=== PATIENT | male | born 1935 | race Caucasian/White ===

== ENCOUNTER 2017-12-15 18:46 | Emergency (ER) | payer MEDICARE, OTHER, SELFPAY ==
[2017-10-28 14:45] VITALS: BMI 28.0
[2017-12-15 18:55] VITALS: BP 131/75; PULSE 90; RESP 18; TEMP 36.4; O2SAT 97
[2017-12-15 19:05] VITALS: BP 131/75; PULSE 90; RESP 18; TEMP 36.4; O2SAT 97
--- NOTE | 2017-12-15 19:08 | ED.FALL ---
HPI - Fall General Chief Complaint: Fall Stated Complaint: GLF Time Seen by Provider: 12/15/17 18:46 Source: EMS, RN notes reviewed and old records reviewed Mode of arrival: EMS Limitations: altered mental status History of Present Illness HPI Narrative: Pleasantly confused, demented 82-year-old male this via EMS after an unwitnessed ground level fall. Patient was evaluated at his nursing facility and had complained of some hip pain as well as low back pain. On arrival here he denies any symptoms. There is no evidence or suggestion that he struck his head, patient denies any head injury though he does take Coumadin. complaint: fall Onset (ago): hour(s) Fall from: standing Fall witnessed: no Place fall occurred: home Loss of consciousness: none Context: tripped/slipped Location of injury: back Severity scale (1-10): 4 Related Data Home Medications Medication Instructions Recorded Confirmed terazosin 10 mg PO QPM #0 11/02/16 10/28/17 calcium carbonate [Calcium 500] 250 mg PO BID 10/28/17 10/28/17 cholecalciferol (vitamin D3) 5,000 unit PO DAILY 10/28/17 10/28/17 [Vitamin D3] glipizide 5 mg PO BID 10/28/17 10/28/17 losartan 50 mg PO DAILY 10/28/17 10/28/17 metformin 500 mg PO BID 10/28/17 10/28/17 multivitamin 1 tab PO DAILY 10/28/17 10/28/17 sertraline 50 mg PO DAILY 10/28/17 10/28/17 Previous Rx's Medication Instructions Recorded clopidogrel [Plavix] 75 mg PO DAILY #30 tab 10/31/17 dextrose 50 % in water (D50W) 0 gm IV PRN PRN #30 ml 10/31/17 docusate sodium 100 mg PO BID #60 cap 10/31/17 enoxaparin [Lovenox] 40 mg SUB-Q QHS #15 ml 10/31/17 ropinirole [Requip] 1.5 mg PO BEDTIME #45 tab 10/31/17 rosuvastatin [Crestor] 20 mg PO BEDTIME #30 tab 10/31/17 Allergies Allergy/AdvReac Type Severity Reaction Status Date / Time shrimp Allergy Intermediate Rash Verified 12/15/17 19:15 ezetimibe [From Vytorin] Allergy Mild SENSITIVITY Verified 12/15/17 19:15 simvastatin Allergy Mild SENSITIVITY Verified 12/15/17 19:15 lactose AdvReac Intermediate Gastrointestinal Verified 12/15/17 19:15 Upset Review of Systems Review of Systems All systems reviewed & are unremarkable except as noted in HPI and below Constitutional Denies chills, Denies fever(s), Denies lethargy and Denies weakness Eyes Denies change in vision, Denies eye discharge, Denies irritation and Denies loss of vision ENT Ears, Nose, Mouth, and Throat: Denies change in voice, Denies neck pain and Denies sore throat Cardiovascular Denies chest pain, Denies irregular heart rhythm, Denies lightheadedness, Denies palpitations, Denies dyspnea, Denies dyspnea on exertion and Denies orthopnea Respiratory Denies cough, Denies dyspnea, Denies dyspnea on exertion and Denies wheezing Gastrointestinal Gastrointestinal: Denies abdominal pain, Denies change in bowel habits, Denies diarrhea, Denies nausea and Denies vomiting Genitourinary Denies hematuria, Denies flank pain, Denies urinary incontinence and Denies urinary urgency Musculoskeletal Reports back pain and Denies neck pain Integumentary/Breasts Denies pruritus, Denies erythema, Denies rash and Denies wounds Neurologic Denies confusion, Denies loss of vision and Denies weakness Psychiatric Denies anxiety, Denies confusion, Denies depression, Denies homicidal ideation and Denies suicidal ideation Endocrine Denies palpitations Hematologic/Lymphatic Denies easy bruising Allergic/Immunologic Denies wheezing Exam Narrative Exam Narrative: Pleasantly confused 82-year-old male, GCS 15 Initial Vital Signs Initial Vital Signs: Vital Signs Temperature 97.6 F 12/15/17 18:55 Pulse Rate 90 12/15/17 18:55 Respiratory Rate 18 12/15/17 18:55 Blood Pressure 131/75 H 12/15/17 18:55 Pulse Oximetry 97 12/15/17 18:55 Const General: cooperative, well developed and No in distress Nutritional Appearance: well nourished Orientation: alert, awake and not confused [facility] Head: normal to inspection, normocephalic and abrasion (Old healing abrasion on left forehead) Nose: external nose normal Face and sinus: normal facial exam Mouth: oral mucosae normal Eyes General: appearance normal, both eyes and all related structures Eyelids: eyelids normal Conjunctivae: conjunctivae normal Sclera: sclerae normal Pupils: PERRL EOM: EOM intact bilaterally Neck Neck: normal visual inspection and full ROM Chest Chest: normal inspection of the chest Resp Effort & Inspection: normal respiratory effort, able to speak in complete sentences, no respiratory distress and no use of accessory muscles Auscultation: clear to auscultation bilaterally, no rales, no rhonchi and no wheezes Cardio Rate: regular rate Rhythm: regular rhythm Heart Sounds: no click, no gallops, no murmurs and no rubs Pulses: normal peripheral pulses Back/Spine/Pelvis Back: No CVA tenderness Cervical Spine: cervical ROM normal and No pain with cervical ROM Thoracic/Lumbar Spine: thoracic and lumbar spine normal to inspection Neuro General: alert, awake and confused Motor: muscle tone normal throughout Sensory Exam: no sensory deficits noted Extrem General: full ROM, no clubbing, cyanosis or edema, no pedal edema and no calf tenderness Psych Appearance: well kempt Attitude: cooperative [facility] Medical History Dementia (Acute) Cataract (Acute) Hearing difficulty of both ears (Acute) Restless leg syndrome (Acute) Rotator cuff dysfunction (Acute) BPH (benign prostatic hyperplasia) (Chronic) CAD (coronary artery disease) (Chronic) Depression (Chronic) Diabetes type 2, controlled (Chronic) HTN (hypertension) (Chronic) Hyperlipidemia (Chronic) Surgical History Hx of appendectomy (Acute) 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) Hx of appendectomy (Chronic) Hx of rotator cuff surgery (Chronic) Social History household members: spouse Smoking Status: Former smoker alcohol intake: current Course Orders Ordered: ED Orders 12/15/17 19:08 CT head/brain wo con Stat XR lumbar spine 2-3V Stat Hemoglobin and Hematocrit Stat Prothrombin Time INR Stat 12/15/17 19:38 XR hip w pel if done RT 2V Stat Vital Signs - 8 hr 12/15/17 20:42 12/15/17 21:03 Temperature 97.6 F Pulse Rate 91 H 91 H Respiratory Rate 20 20 Blood Pressure 134/75 H Blood Pressure [Left Arm] 134/75 H Pulse Oximetry 95 95 MDM - Fall Differential Diagnosis Likely compression fracture, concussion with loss of consciousness and concussion without loss of consciousness Medical Records Attestation: I reviewed the patient's medical records. Lab Data Result diagrams: 12/15/17 19:08 Lab Results 12/15/17 12/15/17 Range/Units 19:08 19:08 Hgb 12.5 L (13.5-17.5) g/dL Hct 36.8 L (41-53) % PT 11.2 (10.1-12.7) SECONDS INR 1.0 (0.9-1.3) Imaging Data Hip Xray: Attestation: I personally reviewed and interpreted this imaging study as follows: My impression: ISABELLE Radiologist's impression: PROCEDURE: XR HIP W PEL IF DONE RT 2V INDICATIONS: Right hip pain, severe per care home TECHNIQUE: 2 views of the hip were acquired. COMPARISON: None. FINDINGS: Bones: No fractures or dislocations. No suspicious bony lesions. The visualized pelvic ring appears intact. Soft tissues: No suspicious soft tissue calcifications or masses. IMPRESSION: No fracture. No acute osseous lesion. If there are persistent symptoms or clinical suspicion for pathology, then repeat radiographs or advanced imaging (CT, MRI or bone scan) should be considered for further evaluation. Dictated by: Theresa Eckert MD, PhD on 12/15/2017 at 20:41 Approved by: Theresa Eckert MD, PhD on 12/15/2017 at 20:42 Lumbar Xray: Attestation: I personally reviewed and interpreted this imaging study as follows: My impression: ISABELLE Radiologist's impression: PROCEDURE: XR LUMBAR SPINE 2-3V INDICATIONS: fall with midline back pain TECHNIQUE: 3 views of the lumbar spine were acquired. COMPARISON: None. FINDINGS: Bones: 5 [id number] vertebrae are present. There is within normal limits. No vertebral body compression fractures. No suspicious bony lesions. Spine degenerative disease and facet arthropathy noted. Soft tissues: Overlying bowel gas pattern is normal. No suspicious soft tissue calcifications. IMPRESSION: No fracture. No acute osseous lesion. If there are persistent symptoms or continued clinical suspicion for pathology, then MRI should be considered for further evaluation. Dictated by: Theresa Eckert MD, PhD on 12/15/2017 at 20:04 Approved by: Theresa Eckert MD, PhD on 12/15/2017 at 20:05 CT scan - head: Radiologist's impression: TECHNIQUE: Noncontrast 4.5 mm thick angled axial sections acquired from the foramen magnum to the vertex, with coronal and sagittal reformats. For radiation dose reduction, the following was used: automated exposure control, adjustment of mA and/or kV according to patient size. COMPARISON: [facility], MR, MR STROKE, 10/28/2017, 13:07. [facility], CT, CT HEAD/BRAIN WO CON, 10/28/2017, 8:24. [facility], CT, HEAD WITHOUT CONTRAST, 11/02/2016, 14:30. [facility], MR, BRAIN WITHOUT CONTRAST, 01/10/2014, 15:10. [facility], CT, HEAD WITHOUT CONTRAST, 08/13/2013, 9:59. [facility], CT, HEAD WITHOUT CONTRAST, 06/07/2009, 9:24. [facility], MR, BRAIN WITHOUT CONTRAST, 05/27/2009, 13:10. [facility], CT, HEAD WITHOUT CONTRAST, 05/26/2009, 16:01. FINDINGS: Image quality: Degraded by patient motion artifact. CSF spaces: Basal cisterns are patent. No extra-axial fluid collections. The ventricles are symmetric in size and shape. Brain: No intracranial bleeds or masses. There is cerebral volume loss for age, with resultant ventricular and sulcal prominence. There are periventricular and deep white matter chronic small vessel ischemic changes. There is intracranial internal carotid artery atherosclerosis. Skull and face: Calvarium and visualized facial bones appear intact, without suspicious lesions. Sinuses: Visualized sinuses and mastoids are clear. IMPRESSION: Image quality severely degraded by patient motion artifact. Intracranial pathology cannot be excluded. Dictated by: Theresa Eckert MD, PhD on 12/15/2017 at 20:05 Approved by: Theresa Eckert MD, PhD on 12/15/2017 at 20:08 Discharge Plan Departure Patient Disposition: Home, Self-Care Clinical Impression: Lumbar back pain Discharge Date/Time: 12/15/17 21:09 Interventions: ED Discharge Assessment Last Done: 12/15/17 21:03 Instructions: Low Back Pain Activity Restrictions/Additional Instructions: There is no evidence of an emergent or life threatening illness at this time, but follow up with your doctor in 1-2 days is recommended nonetheless to continue to rule out serious underlying causes of your symptoms. Please call the office for an appointment. Please return to the Emergency Department for any worsening or persistent symptoms. Please take medications as directed. Prescriptions: No Action terazosin 10 MG capsule 10 mg PO QPM Qty: 0 RF: 0 multivitamin Tablet 1 tab PO DAILY RF: 0 losartan 50 mg Tablet 50 mg PO DAILY RF: 0 metformin 500 mg Tablet 500 mg PO BID RF: 0 calcium carbonate [Calcium 500] 500 mg calcium (1,250 mg) Tablet 250 mg PO BID RF: 0 sertraline 50 mg Tablet 50 mg PO DAILY RF: 0 glipizide 5 mg Tablet 5 mg PO BID RF: 0 cholecalciferol (vitamin D3) [Vitamin D3] 5,000 unit Tablet 5,000 unit PO DAILY RF: 0 docusate sodium 100 mg Capsule 100 mg PO BID Qty: 60 RF: 0 enoxaparin [Lovenox] 40 mg/0.4 mL Syringe 40 mg Sub-Q QHS Qty: 15 RF: 0 dextrose 50 % in water (D50W) Syringe IV PRN PRN (Reason: Blood Sugar - Low) Qty: 30 RF: 0 rosuvastatin [Crestor] 10 mg Tablet 20 mg PO BEDTIME Qty: 30 RF: 0 ropinirole [Requip] 1 mg Tablet 1.5 mg PO BEDTIME Qty: 45 RF: 0 clopidogrel [Plavix] 75 mg Tablet 75 mg PO DAILY Qty: 30 RF: 0 Referrals: Kaden Dunn MD [Primary Care Provider] -
--- NOTE | 2017-12-15 19:24 | PC.NURSE ---
I spoke with nursing staff at [facility]. They report he fell 3 times this evening in a span of 15 minutes. The last time, staff found him on his back. He was complaining of right hip/back pain, has chronic back issues. She reports he was grimacing when she moved his right leg more than usual. States that he denies hitting his head, but he has dementia so there is no way of confirming this. Has abrasion to his forehead form previous fall. They will send over meds and allergies and all relevant information.
--- NOTE | 2017-12-15 19:38 | DI.RAD.S_ITS ---
PROCEDURE: XR HIP W PEL IF DONE RT 2V INDICATIONS: Right hip pain, [facility] TECHNIQUE: 2 views of the hip were acquired. COMPARISON: None. FINDINGS: Bones: No fractures or dislocations. No suspicious bony lesions. The visualized pelvic ring appears intact. Soft tissues: No suspicious soft tissue calcifications or masses. IMPRESSION: No fracture. No acute osseous lesion. If there are persistent symptoms or clinical suspicion for pathology, then repeat radiographs or advanced imaging (CT, MRI or bone scan) should be considered for further evaluation. Dictated by: Theresa Eckert MD, PhD on 12/15/2017 at 20:41 Approved by: Theresa Eckert MD, PhD on 12/15/2017 at 20:42
[2017-12-15 19:49] LABS: Hematocrit 36.8 % (41-53); Hemoglobin 12.5 g/dL (13.5-17.5)
[2017-12-15 19:56] LABS: Prothrombin Time 11.2 SECONDS (10.1-12.7)
[2017-12-15 20:42] VITALS: BP 134/75; PULSE 91; RESP 20; TEMP 36.4; O2SAT 95
--- NOTE | 2017-12-15 20:47 | ED_ITS ---
HPI - Fall General Chief Complaint: Fall Stated Complaint: GLF Time Seen by Provider: 12/15/17 18:46 Source: EMS, RN notes reviewed and old records reviewed Mode of arrival: EMS Limitations: altered mental status History of Present Illness HPI Narrative: Pleasantly confused, demented 82-year-old male this via EMS after an unwitnessed ground level fall. Patient was evaluated at his nursing facility and had complained of some hip pain as well as low back pain. On arrival here he denies any symptoms. There is no evidence or suggestion that he struck his head, patient denies any head injury though he does take Coumadin. complaint: fall Onset (ago): hour(s) Fall from: standing Fall witnessed: no Place fall occurred: home Loss of consciousness: none Context: tripped/slipped Location of injury: back Severity scale (1-10): 4 Related Data Home Medications Medication Instructions Recorded Confirmed terazosin 10 mg PO QPM #0 11/02/16 10/28/17 calcium carbonate [Calcium 500] 250 mg PO BID 10/28/17 10/28/17 cholecalciferol (vitamin D3) 5,000 unit PO DAILY 10/28/17 10/28/17 [Vitamin D3] glipizide 5 mg PO BID 10/28/17 10/28/17 losartan 50 mg PO DAILY 10/28/17 10/28/17 metformin 500 mg PO BID 10/28/17 10/28/17 multivitamin 1 tab PO DAILY 10/28/17 10/28/17 sertraline 50 mg PO DAILY 10/28/17 10/28/17 Previous Rx's Medication Instructions Recorded clopidogrel [Plavix] 75 mg PO DAILY #30 tab 10/31/17 dextrose 50 % in water (D50W) 0 gm IV PRN PRN #30 ml 10/31/17 docusate sodium 100 mg PO BID #60 cap 10/31/17 enoxaparin [Lovenox] 40 mg SUB-Q QHS #15 ml 10/31/17 ropinirole [Requip] 1.5 mg PO BEDTIME #45 tab 10/31/17 rosuvastatin [Crestor] 20 mg PO BEDTIME #30 tab 10/31/17 Allergies Allergy/AdvReac Type Severity Reaction Status Date / Time shrimp Allergy Intermediate Rash Verified 12/15/17 19:15 ezetimibe [From Vytorin] Allergy Mild SENSITIVITY Verified 12/15/17 19:15 simvastatin Allergy Mild SENSITIVITY Verified 12/15/17 19:15 lactose AdvReac Intermediate Gastrointestinal Verified 12/15/17 19:15 Upset Review of Systems Review of Systems All systems reviewed & are unremarkable except as noted in HPI and below Constitutional Denies chills, Denies fever(s), Denies lethargy and Denies weakness Eyes Denies change in vision, Denies eye discharge, Denies irritation and Denies loss of vision ENT Ears, Nose, Mouth, and Throat: Denies change in voice, Denies neck pain and Denies sore throat Cardiovascular Denies chest pain, Denies irregular heart rhythm, Denies lightheadedness, Denies palpitations, Denies dyspnea, Denies dyspnea on exertion and Denies orthopnea Respiratory Denies cough, Denies dyspnea, Denies dyspnea on exertion and Denies wheezing Gastrointestinal Gastrointestinal: Denies abdominal pain, Denies change in bowel habits, Denies diarrhea, Denies nausea and Denies vomiting Genitourinary Denies hematuria, Denies flank pain, Denies urinary incontinence and Denies urinary urgency Musculoskeletal Reports back pain and Denies neck pain Integumentary/Breasts Denies pruritus, Denies erythema, Denies rash and Denies wounds Neurologic Denies confusion, Denies loss of vision and Denies weakness Psychiatric Denies anxiety, Denies confusion, Denies depression, Denies homicidal ideation and Denies suicidal ideation Endocrine Denies palpitations Hematologic/Lymphatic Denies easy bruising Allergic/Immunologic Denies wheezing Exam Narrative Exam Narrative: Pleasantly confused 82-year-old male, GCS 15 Initial Vital Signs Initial Vital Signs: Vital Signs Temperature 97.6 F 12/15/17 18:55 Pulse Rate 90 12/15/17 18:55 Respiratory Rate 18 12/15/17 18:55 Blood Pressure 131/75 H 12/15/17 18:55 Pulse Oximetry 97 12/15/17 18:55 Const General: cooperative, well developed and No in distress Nutritional Appearance: well nourished Orientation: alert, awake and not confused [facility] Head: normal to inspection, normocephalic and abrasion (Old healing abrasion on left forehead) Nose: external nose normal Face and sinus: normal facial exam Mouth: oral mucosae normal Eyes General: appearance normal, both eyes and all related structures Eyelids: eyelids normal Conjunctivae: conjunctivae normal Sclera: sclerae normal Pupils: PERRL EOM: EOM intact bilaterally Neck Neck: normal visual inspection and full ROM Chest Chest: normal inspection of the chest Resp Effort & Inspection: normal respiratory effort, able to speak in complete sentences, no respiratory distress and no use of accessory muscles Auscultation: clear to auscultation bilaterally, no rales, no rhonchi and no wheezes Cardio Rate: regular rate Rhythm: regular rhythm Heart Sounds: no click, no gallops, no murmurs and no rubs Pulses: normal peripheral pulses Back/Spine/Pelvis Back: No CVA tenderness Cervical Spine: cervical ROM normal and No pain with cervical ROM Thoracic/Lumbar Spine: thoracic and lumbar spine normal to inspection Neuro General: alert, awake and confused Motor: muscle tone normal throughout Sensory Exam: no sensory deficits noted Extrem General: full ROM, no clubbing, cyanosis or edema, no pedal edema and no calf tenderness Psych Appearance: well kempt Attitude: cooperative [facility] Medical History Dementia (Acute) Cataract (Acute) Hearing difficulty of both ears (Acute) Restless leg syndrome (Acute) Rotator cuff dysfunction (Acute) BPH (benign prostatic hyperplasia) (Chronic) CAD (coronary artery disease) (Chronic) Depression (Chronic) Diabetes type 2, controlled (Chronic) HTN (hypertension) (Chronic) Hyperlipidemia (Chronic) Surgical History Hx of appendectomy (Acute) 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) Hx of appendectomy (Chronic) Hx of rotator cuff surgery (Chronic) Social History household members: spouse Smoking Status: Former smoker alcohol intake: current Course Orders Ordered: ED Orders 12/15/17 19:08 CT head/brain wo con Stat XR lumbar spine 2-3V Stat Hemoglobin and Hematocrit Stat Prothrombin Time INR Stat 12/15/17 19:38 XR hip w pel if done RT 2V Stat Vital Signs - 8 hr 12/15/17 20:42 12/15/17 21:03 Temperature 97.6 F Pulse Rate 91 H 91 H Respiratory Rate 20 20 Blood Pressure 134/75 H Blood Pressure [Left Arm] 134/75 H Pulse Oximetry 95 95 MDM - Fall Differential Diagnosis Likely compression fracture, concussion with loss of consciousness and concussion without loss of consciousness Medical Records Attestation: I reviewed the patient's medical records. Lab Data Result diagrams: 12/15/17 19:08 Lab Results 12/15/17 12/15/17 Range/Units 19:08 19:08 Hgb 12.5 L (13.5-17.5) g/dL Hct 36.8 L (41-53) % PT 11.2 (10.1-12.7) SECONDS INR 1.0 (0.9-1.3) Imaging Data Hip Xray: Attestation: I personally reviewed and interpreted this imaging study as follows: My impression: ISABELLE Radiologist's impression: PROCEDURE: XR HIP W PEL IF DONE RT 2V INDICATIONS: Right hip pain, severe per assisted TECHNIQUE: 2 views of the hip were acquired. COMPARISON: None. FINDINGS: Bones: No fractures or dislocations. No suspicious bony lesions. The visualized pelvic ring appears intact. Soft tissues: No suspicious soft tissue calcifications or masses. IMPRESSION: No fracture. No acute osseous lesion. If there are persistent symptoms or clinical suspicion for pathology, then repeat radiographs or advanced imaging ( CT, MRI or bone scan) should be considered for further evaluation. Dictated by: Theresa Eckert MD, PhD on 12/15/2017 at 20:41 Approved by: Theresa Eckert MD, PhD on 12/15/2017 at 20:42 Lumbar Xray: Attestation: I personally reviewed and interpreted this imaging study as follows: My impression: ISABELLE Radiologist's impression: PROCEDURE: XR LUMBAR SPINE 2-3V INDICATIONS: fall with midline back pain TECHNIQUE: 3 views of the lumbar spine were acquired. COMPARISON: None. FINDINGS: Bones: 5 [id number] vertebrae are present. There is within normal limits. No vertebral body compression fractures. No suspicious bony lesions. Spine degenerative disease and facet arthropathy noted. Soft tissues: Overlying bowel gas pattern is normal. No suspicious soft tissue calcifications. IMPRESSION: No fracture. No acute osseous lesion. If there are persistent symptoms or continued clinical suspicion for pathology, then MRI should be considered for further evaluation. Dictated by: Theresa Eckert MD, PhD on 12/15/2017 at 20:04 Approved by: Theresa Eckert MD, PhD on 12/15/2017 at 20:05 CT scan - head: Radiologist's impression: TECHNIQUE: Noncontrast 4.5 mm thick angled axial sections acquired from the foramen magnum to the vertex, with coronal and sagittal reformats. For radiation dose reduction, the following was used: automated exposure control, adjustment of mA and/or kV according to patient size. COMPARISON: [facility], MR, MR STROKE, 10/28/2017, 13:07. [facility] , CT, CT HEAD/BRAIN WO CON, 10/28/2017, 8:24. [facility], CT, HEAD WITHOUT CONTRAST , 11/02/2016, 14:30. [facility], MR, BRAIN WITHOUT CONTRAST, 01/10/2014, 15: 10. [facility], CT, HEAD WITHOUT CONTRAST, 08/13/2013, 9:59. [facility], CT, HEAD WITHOUT CONTRAST, 06/07/2009, 9:24. [facility], MR, BRAIN WITHOUT CONTRAST, 2008, 13:10. [facility], CT, HEAD WITHOUT CONTRAST, 05/26/2009, 16:01. FINDINGS: Image quality: Degraded by patient motion artifact. CSF spaces: Basal cisterns are patent. No extra-axial fluid collections. The ventricles are symmetric in size and shape. Brain: No intracranial bleeds or masses. There is cerebral volume loss for age , with resultant ventricular and sulcal prominence. There are periventricular and deep white matter chronic small vessel ischemic changes. There is intracranial internal carotid artery atherosclerosis. Skull and face: Calvarium and visualized facial bones appear intact, without suspicious lesions. Sinuses: Visualized sinuses and mastoids are clear. IMPRESSION: Image quality severely degraded by patient motion artifact. Intracranial pathology cannot be excluded. Dictated by: Theresa Eckert MD, PhD on 12/15/2017 at 20:05 Approved by: Theresa Eckert MD, PhD on 12/15/2017 at 20:08 Discharge Plan Departure Patient Disposition: Home, Self-Care Clinical Impression: Lumbar back pain Discharge Date/Time: 12/15/17 21:09 Interventions: ED Discharge Assessment Last Done: 12/15/17 21:03 Instructions: Low Back Pain Activity Restrictions/Additional Instructions: There is no evidence of an emergent or life threatening illness at this time, but follow up with your doctor in 1-2 days is recommended nonetheless to continue to rule out serious underlying causes of your symptoms. Please call the office for an appointment. Please return to the Emergency Department for any worsening or persistent symptoms. Please take medications as directed. Prescriptions: No Action terazosin 10 MG capsule 10 mg PO QPM Qty: 0 RF: 0 multivitamin Tablet 1 tab PO DAILY RF: 0 losartan 50 mg Tablet 50 mg PO DAILY RF: 0 metformin 500 mg Tablet 500 mg PO BID RF: 0 calcium carbonate [Calcium 500] 500 mg calcium (1,250 mg) Tablet 250 mg PO BID RF: 0 sertraline 50 mg Tablet 50 mg PO DAILY RF: 0 glipizide 5 mg Tablet 5 mg PO BID RF: 0 cholecalciferol (vitamin D3) [Vitamin D3] 5,000 unit Tablet 5,000 unit PO DAILY RF: 0 docusate sodium 100 mg Capsule 100 mg PO BID Qty: 60 RF: 0 enoxaparin [Lovenox] 40 mg/0.4 mL Syringe 40 mg Sub-Q QHS Qty: 15 RF: 0 dextrose 50 % in water (D50W) Syringe IV PRN PRN (Reason: Blood Sugar - Low) Qty: 30 RF: 0 rosuvastatin [Crestor] 10 mg Tablet 20 mg PO BEDTIME Qty: 30 RF: 0 ropinirole [Requip] 1 mg Tablet 1.5 mg PO BEDTIME Qty: 45 RF: 0 clopidogrel [Plavix] 75 mg Tablet 75 mg PO DAILY Qty: 30 RF: 0 Referrals: Kaden Dunn MD [Primary Care Provider] -
[2017-12-15 21:03] VITALS: BP 134/75; PULSE 91; RESP 20; O2SAT 95
== END 2017-12-15 21:09 | disposition home or self-care (01) ==
PROVIDERS: Emergency Provider Emergency Medicine; PCP Internal Medicine
DX: M54.5 Low back pain (principal); W18.30XA Fall on same level, unspecified, initial encounter; R41.0 Disorientation, unspecified
CPT/HCPCS: 70450; 72100; 73502; 85014; 85018; 85610; 99283; 99284; 99291

== ENCOUNTER → 2017-12-27 15:24 | Outpatient (CLI) | payer MEDICARE, OTHER, SELFPAY ==
[2017-10-28 14:45] VITALS: BMI 28.0
--- NOTE | 2017-12-27 | DI.RAD.S_ITS ---
PROCEDURE: XR CHEST 2V INDICATIONS: CHEST FRACTURE TECHNIQUE: 2 views of the chest were acquired. COMPARISON: [facility], , CHEST 1 VIEW, 02/21/2017, 11:02. [facility], , CHEST 1 VIEW, 11/02/2016, 13:24. [facility], , CHEST 1 VIEW, 05/16/2016, 19:17. FINDINGS: Surgical changes and devices: Sternotomy wires, presumed prior CABG. Lungs and pleura: No pleural effusions or pneumothorax. Lungs are clear. Mediastinum: Mediastinal contours are normal. Heart size is normal. Bones and chest wall: No suspicious bony abnormalities. Soft tissues appear unremarkable. IMPRESSION: Chronic mild elevation of the right diaphragm, prior CABG, no acute disease. Dictated by: Yahir Rosenbaum M.D. on 12/27/2017 at 16:10 Approved by: Yahir Rosenbaum M.D. on 12/27/2017 at 16:10
== END ==
PROVIDERS: PCP Internal Medicine; Visit Provider Internal Medicine
DX: R07.81 Pleurodynia (principal)
CPT/HCPCS: 71046

== ENCOUNTER → 2018-01-21 18:33 | Outpatient (REF) | payer MEDICARE, OTHER, SELFPAY ==
[2017-10-28 14:45] VITALS: BMI 28.0
[2018-01-21 18:39] LABS: Appearance Urine UA CLOUDY; Bilirubin Urine UA NEGATIVE (NEGATIVE); Color Urine UA YELLOW; Glucose Urine UA 2+ g/dL (Normal); Ketones Urine UA TRACE (NEGATIVE); Leukocyte Esterase Urine UA 2+ (NEGATIVE); Nitrite Urine UA Negative (Negative); Occult Blood Urine UA 1+ (Negative); Protein Urine UA 1+ (Negative); pH Urine UA 5.5 (4.5-8.0)
[2018-01-21 18:50] LABS: Bacteria Urine Many (>30); Culture Indicated Urine Specimen Cultured; RBC Urine 1-5/HPF (0-5/HPF); Squamous Epithelial Cell Urine 0-1 /HPF; WBC Urine >100/HPF (0-5/HPF)
== END ==
LOC: LAB 18:33
PROVIDERS: PCP Internal Medicine; Visit Provider Internal Medicine
DX: R30.0 Dysuria (principal)
CPT/HCPCS: 81001; 87077; 87086; 87186

== ENCOUNTER 2018-03-03 22:57 | Emergency (ER) | payer MEDICARE, OTHER, SELFPAY ==
[2017-10-28 14:45] VITALS: BMI 28.0
[2018-03-03 23:03] VITALS: BP 129/65; PULSE 90; RESP 13; TEMP 36.4; O2SAT 96
--- NOTE | 2018-03-03 23:46 | DI.RAD.S_ITS ---
PROCEDURE: XR PELVIS 1-2V INDICATIONS: right hip pain after fall TECHNIQUE: Single view of the pelvis and 2 views of the hips were acquired. COMPARISON: [facility], CT, CT ABDOMEN PELVIS W CON, 03/04/2018, 1:03. FINDINGS: Bones: No fractures or dislocations. No suspicious bony lesions. Soft tissues: Visualized bowel gas pattern is normal. No suspicious soft tissue calcifications. Contrast is visualized within the bladder in the distal right ureter. There is a large left pelvic phlebolith. IMPRESSION: No acute fracture or dislocation. Dictated by: Reny Chacon M.D. on 03/04/2018 at 7:22 Approved by: Reny Chacon M.D. on 03/04/2018 at 7:24
--- NOTE | 2018-03-03 23:46 | ED.FALL ---
HPI - Fall General Chief Complaint: Fall Stated Complaint: GLF, dementia Time Seen by Provider: 03/03/18 23:00 Source: family and EMS Mode of arrival: EMS Limitations: altered mental status History of Present Illness HPI Narrative: Reported from EMS that they received a call from [facility] for the patient sustaining a ground level fall. Unknown how the patient fell. He was unable to provide any history secondary to his dementia. His was at bedside states that his mental status is at baseline. Related Data Home Medications Medication Instructions Recorded Confirmed terazosin 10 mg PO QPM #0 11/02/16 10/28/17 calcium carbonate [Calcium 500] 250 mg PO BID 10/28/17 10/28/17 cholecalciferol (vitamin D3) 5,000 unit PO DAILY 10/28/17 10/28/17 [Vitamin D3] glipizide 5 mg PO BID 10/28/17 10/28/17 losartan 50 mg PO DAILY 10/28/17 10/28/17 metformin 500 mg PO BID 10/28/17 10/28/17 multivitamin 1 tab PO DAILY 10/28/17 10/28/17 sertraline 50 mg PO DAILY 10/28/17 10/28/17 Previous Rx's Medication Instructions Recorded clopidogrel [Plavix] 75 mg PO DAILY #30 tab 10/31/17 dextrose 50 % in water (D50W) 0 gm IV PRN PRN #30 ml 10/31/17 docusate sodium 100 mg PO BID #60 cap 10/31/17 enoxaparin [Lovenox] 40 mg SUB-Q QHS #15 ml 10/31/17 ropinirole [Requip] 1.5 mg PO BEDTIME #45 tab 10/31/17 rosuvastatin [Crestor] 20 mg PO BEDTIME #30 tab 10/31/17 Allergies Allergy/AdvReac Type Severity Reaction Status Date / Time shrimp Allergy Intermediate Rash Verified 12/15/17 19:15 ezetimibe [From Vytorin] Allergy Mild SENSITIVITY Verified 12/15/17 19:15 simvastatin Allergy Mild SENSITIVITY Verified 12/15/17 19:15 lactose AdvReac Intermediate Gastrointestinal Verified 12/15/17 19:15 Upset Review of Systems Review of Systems unobtainable due to mental condition Exam Initial Vital Signs Initial Vital Signs: Vital Signs Temperature 97.5 F L 03/03/18 23:03 Pulse Rate 90 03/03/18 23:03 Respiratory Rate 13 03/03/18 23:03 Blood Pressure 129/65 03/03/18 23:03 Pulse Oximetry 96 03/03/18 23:03 Const General: healthy appearing and comfortable Orientation: alert, awake, oriented to person, not oriented to time and confused HENMT Head: normal to inspection and normocephalic Resp Effort & Inspection: normal respiratory effort Auscultation: clear to auscultation bilaterally Cardio Rate: regular rate Rhythm: regular rhythm Heart Sounds: no murmurs Pulses: radial pulses present GI Inspection: non-distended Palpation: soft, No firm and tender (Right side no rebound or guarding) Back/Spine/Pelvis Back: CVA tenderness right Skin Lesions: no lesions Rashes: no rashes Neuro General: alert and awake Motor: muscle tone normal throughout Extrem General: normal to inspection and capillary refill normal Psych Appearance: grossly normal and well kempt [facility] Medical History Dementia (Acute) Cataract (Acute) Hearing difficulty of both ears (Acute) Restless leg syndrome (Acute) Rotator cuff dysfunction (Acute) BPH (benign prostatic hyperplasia) (Chronic) CAD (coronary artery disease) (Chronic) Depression (Chronic) Diabetes type 2, controlled (Chronic) HTN (hypertension) (Chronic) Hyperlipidemia (Chronic) Surgical History Hx of appendectomy (Acute) 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 Result diagrams: 03/04/18 00:30 03/04/18 00:30 Lab Results 03/04/18 03/04/18 Range/Units 00:30 00:30 WBC 9.9 (4.5-11.0) X10^3/uL RBC 4.50 (4.5-5.9) X10^6/uL Hgb 13.6 (13.5-17.5) g/dL Hct 39.7 L (41-53) % MCV 88.3 (80-100) fL MCH 30.3 (26-34) PG MCHC 34.3 (30-36) % RDW 13.6 (11.6-14.8) % Plt Count 259 (150-400) X10^3/uL Neut % (Auto) 69.2 (50-75) % Lymph % (Auto) 19.0 L (25-40) % [place] % (Auto) 7.4 (3-14) % Eos % (Auto) 3.8 (2-4) % Baso % (Auto) 0.6 (0-2) % Neut # (Auto) 6900 H (6103-4000) /uL Sodium 137 (137-145) mmol/L Potassium 4.5 (3.4-5.1) mmol/L Chloride 101 (98-107) mmol/L Carbon Dioxide 22 (22-32) mmol/L BUN 16 (9-20) mg/dL Creatinine 0.70 (0.66-1.25) mg/dL Estimated GFR > 60.0 (>60) mL/min BUN/Creatinine Ratio 22.9 H (6-22) Glucose 359 H (80-110) mg/dL Calcium 9.4 (8.4-10.2) mg/dL Imaging Data X-ray pelvis: Attestation: I personally reviewed and interpreted this imaging study as follows: My impression: No fracture, no dislocation CT scan - abdomen: Radiologist's impression: No hepatic, splenic or renal trauma Moderate irregular diffuse wall thickening of urinary bladder which can be seen with tumor cystitis. ECG Data Attestation: I personally reviewed and interpreted this ECG as follows: Prior ECG tracings: not available for review Interpretation: Sinus rhythm Ventricular rate is 75 First degree AV block QRS 123 milliseconds Normal QTC Nonspecific ST T wave changes MDM Narrative Medical decision making narrative: Patient appears to be baseline mental status per the was at bedside. No trauma seen on the exam. Patient not on anticoagulation. No fractures on x-ray. CT scan pelvis performed secondary to right-sided abdominal pain and concern for intra-abdominal injury. There was no acute findings on the CT scan. Patient's states that he has never been evaluated in the past for bladder issues. She states that he has been incontinent since his stroke. A urine culture was sent secondary to the amount of urine that we were able to obtain here in the ER. The was informed of this. Will call if the this culture grows out any bacteria. The is given return precautions. She expressed understanding and agreement with plan. Discharge Plan Departure Patient Disposition: Home Clinical Impression: Abdominal pain, Fall Instructions: How to Prevent Falls Activity Restrictions/Additional Instructions: Call his primary care doctor for a follow-up. Return to the emergency department for any new or worsening symptoms Prescriptions: No Action terazosin 10 MG capsule 10 mg PO QPM Qty: 0 RF: 0 multivitamin Tablet 1 tab PO DAILY RF: 0 losartan 50 mg Tablet 50 mg PO DAILY RF: 0 metformin 500 mg Tablet 500 mg PO BID RF: 0 calcium carbonate [Calcium 500] 500 mg calcium (1,250 mg) Tablet 250 mg PO BID RF: 0 sertraline 50 mg Tablet 50 mg PO DAILY RF: 0 glipizide 5 mg Tablet 5 mg PO BID RF: 0 cholecalciferol (vitamin D3) [Vitamin D3] 5,000 unit Tablet 5,000 unit PO DAILY RF: 0 docusate sodium 100 mg Capsule 100 mg PO BID Qty: 60 RF: 0 enoxaparin [Lovenox] 40 mg/0.4 mL Syringe 40 mg Sub-Q QHS Qty: 15 RF: 0 dextrose 50 % in water (D50W) Syringe IV PRN PRN (Reason: Blood Sugar - Low) Qty: 30 RF: 0 rosuvastatin [Crestor] 10 mg Tablet 20 mg PO BEDTIME Qty: 30 RF: 0 ropinirole [Requip] 1 mg Tablet 1.5 mg PO BEDTIME Qty: 45 RF: 0 clopidogrel [Plavix] 75 mg Tablet 75 mg PO DAILY Qty: 30 RF: 0
--- NOTE | 2018-03-03 23:47 | DI.CT.S_ITS ---
PROCEDURE: CT ABDOMEN PELVIS W CON INDICATIONS: right-sided abdominal pain after fall TECHNIQUE: After the administration of intravenous contrast, 5 mm thick sections acquired from the diaphragm to the symphysis. 5 mm coronal and sagittal reformats were acquired. For radiation dose reduction, the following was used: automated exposure control, adjustment of mA and/or kV according to patient size. COMPARISON: [facility], CT, ABDOMEN/PELVIS WITH CONTRAST, 11/02/2016, 14:35. FINDINGS: Image quality: Excellent. ABDOMEN: Lung bases: There is atelectasis at the right lung base. No pleural effusion or pneumothorax. Patient is status post median sternotomy. There are extensive atheromatous calcifications throughout the coronary arteries. Solid organs: Liver is normal in size and enhancement. Gallbladder is unremarkable. Biliary system is non dilated. Pancreas enhances normally. Spleen is normal in size and enhancement. No adrenal nodules. Kidneys demonstrate normal size and enhancement, without hydronephrosis. Subcentimeter low-density cystic lesions are present within the right renal cortex. Peritoneum and bowel: Bowel loops demonstrate normal wall thickness and caliber. The appendix is not visualized; however there is no discrete right lower quadrant fluid or fat stranding to suggest acute appendicitis. No free fluid or air. Nodes and vessels: No retroperitoneal or mesenteric adenopathy by size criteria. There is mild fat stranding at the mesenteric root. This finding was visualized on the study dated 11/02/16 but appears more conspicuous on the current study. The largest associated mesenteric lymph node measures 9 mm in diameter which is increased when compared with the prior study (series 3, image 63). Aorta and inferior vena cava are normal in size. There are scattered atheromatous calcifications throughout the aorta and iliac arteries bilaterally. Miscellaneous: No ventral hernias. PELVIS: Genitourinary: The bladder is partially fluid filled and is diffusely thickened with trace perivesicular fat stranding. This is a new finding when compared with the prior CT dated 11/02/16. Miscellaneous: No inguinal adenopathy. There is a small fat containing left inguinal hernia. Bones: No suspicious bony lesions. No vertebral body compression fractures. There incidentally noted displaced pars interarticularis defects of L5-S1. No spondylolisthesis. IMPRESSION: 1. No findings to suggest acute right-sided trauma. 2. Nonvisualization of the appendix. No ancillary findings to suggest acute appendicitis. 3. Diffuse thickening of the bladder wall which is new when compared with the prior CT from 2017. Acute cystitis cannot be excluded. Please correlate with urinalysis. Neoplasm could also be considered in the differential. These findings are concordant with the overnight interpretation. Dictated by: Reny Chacon M.D. on 03/04/2018 at 7:14 Approved by: Reny Chacon M.D. on 03/04/2018 at 7:22
[2018-03-04 00:37] LABS: Add Manual Diff / Slide Review NO; Basophils Percent Auto 0.6 % (0-2); Eosinophils Percent Auto 3.8 % (2-4); Hematocrit 39.7 % (41-53); Hemoglobin 13.6 g/dL (13.5-17.5); Mean Corpuscular HGB Conc 34.3 % (30-36); Mean Corpuscular Hemoglobin 30.3 PG (26-34); Mean Corpuscular Volume 88.3 fL (80-100); Monocytes Percent Auto 7.4 % (3-14); Neutrophils Absolute Auto 6900 /uL (3000-5900); Neutrophils Percent Auto 69.2 % (50-75); Platelet Count 259 X10^3/uL (150-400); Red Cell Distribution Width 13.6 % (11.6-14.8); White Blood Cell Count 9.9 X10^3/uL (4.5-11.0)
[2018-03-04 00:44] LABS: BUN Creatinine Ratio 22.9 (6-22); Blood Urea Nitrogen 16 mg/dL (9-20); Calcium 9.4 mg/dL (8.4-10.2); Carbon Dioxide 22 mmol/L (22-32); Chloride 101 mmol/L (98-107); Estimated Glomerular Filt Rate > 60.0 mL/min (>60); Glucose 359 mg/dL (80-110); Sodium 137 mmol/L (137-145)
[2018-03-04 00:46] LABS: HEMOLYSIS 71 (0-50)
[2018-03-04 00:48] LABS: Potassium 4.5 mmol/L (3.4-5.1)
[2018-03-04 04:11] VITALS: BP 140/66; PULSE 82; RESP 18; O2SAT 98
--- NOTE | 2018-03-04 04:14 | PC.NURSE ---
Late entry at 0310-Spouse chose to take pt via POV and states pt can take steps from bed to WC. [facility] with [facility] to [facility] bed when arrives to the facility.
== END 2018-03-04 03:15 | disposition home or self-care (01) ==
PROVIDERS: Emergency Provider Emergency Medicine; PCP Internal Medicine
DX: R10.9 Unspecified abdominal pain (principal); F03.90 Unspecified dementia, unspecified severity, without behavioral disturbance, psychotic disturbance, mood disturbance, and anxiety; W18.30XA Fall on same level, unspecified, initial encounter
CPT/HCPCS: 36591; 72170; 74177; 80048; 85025; 87077; 87086; 87186; 93005; 99283; 99285; Q9967

== ENCOUNTER → 2018-03-26 11:51 | Outpatient (REF) | payer MEDICARE, OTHER, SELFPAY ==
[2017-10-28 14:45] VITALS: BMI 28.0
[2018-03-26 12:13] LABS: Appearance Urine UA TURBID; Bilirubin Urine UA NEGATIVE (NEGATIVE); Color Urine UA YELLOW; Glucose Urine UA 2+ g/dL (Normal); Ketones Urine UA TRACE (NEGATIVE); Leukocyte Esterase Urine UA 2+ (NEGATIVE); Nitrite Urine UA POSITIVE (Negative); Occult Blood Urine UA 3+ (Negative); Protein Urine UA 2+ (Negative); Specific Gravity Urine UA 1.025 (1.000-1.035); Urobilinogen Urine UA 0.2 E.U./dL (0.2)
[2018-03-26 12:27] LABS: Bacteria Urine Many (>30); Culture Indicated Urine Specimen Cultured; RBC Urine >100/HPF (0-5/HPF); WBC Urine 5-10/HPF (0-5/HPF)
== END ==
LOC: LAB 11:51
PROVIDERS: PCP Internal Medicine; Visit Provider Internal Medicine
DX: N39.0 Urinary tract infection, site not specified (principal)
CPT/HCPCS: 81001; 87077; 87086; 87186

== ENCOUNTER 2018-04-21 03:49 | Emergency (ER) | payer MEDICARE, OTHER, SELFPAY ==
[2017-10-28 14:45] VITALS: BMI 28.0
--- NOTE | 2018-04-21 03:55 | DI.RAD.S_ITS ---
PROCEDURE: XR PELVIS 1-2V INDICATIONS: right hip pain TECHNIQUE: Single view(s) of the pelvis acquired. COMPARISON: None. FINDINGS: Bones: No fractures or dislocations. No suspicious bony lesions. Mild bilateral hip joint degeneration. Lower lumbar degenerative disc disease Soft tissues: Visualized bowel gas pattern is normal. Dense stool is noted within the rectal vault. No suspicious soft tissue calcifications. IMPRESSION: No fracture identified. Dictated by: Mayco López M.D. on 04/21/2018 at 7:51 Approved by: Mayco López M.D. on 04/21/2018 at 7:53
--- NOTE | 2018-04-21 03:55 | ED.GENADULT ---
HPI - General Adult General Chief complaint: Fall Stated complaint: GLF, Rt Hip Pain Time Seen by Provider: 04/21/18 03:55 Source: EMS Mode of arrival: EMS Limitations: other (dementia) History of Present Illness HPI narrative: 83-year-old male brought in by EMS after they were called to his our [facility] for report that the patient had an unwitnessed fall 2 days ago is complaining of right hip pain. No interventions were made by EMS prior to arrival. Patient does have a history of dementia. Unable to provide any HPI. Related Data Home Medications Medication Instructions Recorded Confirmed terazosin 10 mg PO QPM #0 11/02/16 10/28/17 calcium carbonate [Calcium 500] 250 mg PO BID 10/28/17 10/28/17 cholecalciferol (vitamin D3) 5,000 unit PO DAILY 10/28/17 10/28/17 [Vitamin D3] glipizide 5 mg PO BID 10/28/17 10/28/17 losartan 50 mg PO DAILY 10/28/17 10/28/17 metformin 500 mg PO BID 10/28/17 10/28/17 multivitamin 1 tab PO DAILY 10/28/17 10/28/17 sertraline 50 mg PO DAILY 10/28/17 10/28/17 Previous Rx's Medication Instructions Recorded clopidogrel [Plavix] 75 mg PO DAILY #30 tab 10/31/17 dextrose 50 % in water (D50W) 0 gm IV PRN PRN #30 ml 10/31/17 docusate sodium 100 mg PO BID #60 cap 10/31/17 enoxaparin [Lovenox] 40 mg SUB-Q QHS #15 ml 10/31/17 ropinirole [Requip] 1.5 mg PO BEDTIME #45 tab 10/31/17 rosuvastatin [Crestor] 20 mg PO BEDTIME #30 tab 10/31/17 Allergies Allergy/AdvReac Type Severity Reaction Status Date / Time shrimp Allergy Intermediate Rash Verified 12/15/17 19:15 ezetimibe [From Vytorin] Allergy Mild SENSITIVITY Verified 12/15/17 19:15 simvastatin Allergy Mild SENSITIVITY Verified 12/15/17 19:15 lactose AdvReac Intermediate Gastrointestinal Verified 12/15/17 19:15 Upset Review of Systems Review of Systems Reported to right hip pain from the nursing facility unobtainable due to mental status [facility] Medical History Dementia (Acute) Cataract (Acute) Hearing difficulty of both ears (Acute) Restless leg syndrome (Acute) Rotator cuff dysfunction (Acute) BPH (benign prostatic hyperplasia) (Chronic) CAD (coronary artery disease) (Chronic) Depression (Chronic) Diabetes type 2, controlled (Chronic) HTN (hypertension) (Chronic) Hyperlipidemia (Chronic) Surgical History Hx of appendectomy (Acute) 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) Hx of appendectomy (Chronic) Hx of rotator cuff surgery (Chronic) Social History household members: spouse Smoking Status: Former smoker alcohol intake: current Exam Initial Vital Signs Initial Vital Signs: Vital Signs Temperature 97.6 F 04/21/18 03:56 Pulse Rate 84 04/21/18 03:56 Respiratory Rate 16 04/21/18 03:56 Blood Pressure 130/68 04/21/18 03:56 Pulse Oximetry 96 04/21/18 03:56 Const General: comfortable and well developed Orientation: alert, awake, not oriented to person, not oriented to place, not oriented to time and confused HENMT Head: normal to inspection and normocephalic Resp Effort & Inspection: normal respiratory effort GI Inspection: non-distended Palpation: soft Skin Lesions: no lesions Rashes: no rashes Neuro General: alert and awake Extrem Other: No gross deformities noted on extremity exam. Pelvis was stable. Psych Appearance: grossly normal Course Orders Ordered: ED Orders 04/21/18 03:55 XR pelvis 1-2V Stat Vital Signs - 8 hr 04/21/18 03:56 Temperature 97.6 F Pulse Rate 84 Respiratory Rate 16 Blood Pressure 130/68 Pulse Oximetry 96 Medical Decision Making Imaging Data X-ray pelvis: Attestation: I personally reviewed and interpreted this imaging study as follows: My impression: No fractures, no dislocation, no acute abnormalities MDM Narrative Medical decision making narrative: Patient with a history of dementia. He does not know where he is currently in does not know why he is here. Will not answer questions when asked about pain. No fractures noted on the x-rays. No other trauma noted on my exam. Patient has been seen here in the emergency department multiple times in the past for hip and back pain and falls. Will hold on further workup for now. Discharge Plan Departure Patient Disposition: Home Clinical Impression: Hip pain Instructions: How to Prevent Falls Activity Restrictions/Additional Instructions: There were no fractures noted on the x-rays and no other signs of trauma. Please contact his primary care doctor for further evaluation Prescriptions: No Action terazosin 10 MG capsule 10 mg PO QPM Qty: 0 RF: 0 multivitamin Tablet 1 tab PO DAILY RF: 0 losartan 50 mg Tablet 50 mg PO DAILY RF: 0 metformin 500 mg Tablet 500 mg PO BID RF: 0 calcium carbonate [Calcium 500] 500 mg calcium (1,250 mg) Tablet 250 mg PO BID RF: 0 sertraline 50 mg Tablet 50 mg PO DAILY RF: 0 glipizide 5 mg Tablet 5 mg PO BID RF: 0 cholecalciferol (vitamin D3) [Vitamin D3] 5,000 unit Tablet 5,000 unit PO DAILY RF: 0 docusate sodium 100 mg Capsule 100 mg PO BID Qty: 60 RF: 0 enoxaparin [Lovenox] 40 mg/0.4 mL Syringe 40 mg Sub-Q QHS Qty: 15 RF: 0 dextrose 50 % in water (D50W) Syringe IV PRN PRN (Reason: Blood Sugar - Low) Qty: 30 RF: 0 rosuvastatin [Crestor] 10 mg Tablet 20 mg PO BEDTIME Qty: 30 RF: 0 ropinirole [Requip] 1 mg Tablet 1.5 mg PO BEDTIME Qty: 45 RF: 0 clopidogrel [Plavix] 75 mg Tablet 75 mg PO DAILY Qty: 30 RF: 0
[2018-04-21 03:56] VITALS: BP 130/68; PULSE 84; RESP 16; TEMP 36.4; O2SAT 96
== END 2018-04-21 04:43 | disposition home or self-care (01) ==
PROVIDERS: Emergency Provider Emergency Medicine; PCP Internal Medicine
DX: M25.551 Pain in right hip (principal); W19.XXXA Unspecified fall, initial encounter
CPT/HCPCS: 72170; 99282; 99283

== ENCOUNTER 2018-05-09 06:57 | Emergency (ER) | payer MEDICARE, OTHER, SELFPAY ==
[2017-10-28 14:45] VITALS: BMI 28.0
--- NOTE | 2018-05-09 07:03 | ED_ITS ---
HPI - General Adult General Chief complaint: GI Bleed Stated complaint: coffee ground BM Time Seen by Provider: 05/09/18 07:02 Source: patient and family Mode of arrival: ambulatory Limitations: no limitations History of Present Illness HPI narrative: 83-year-old male with a history of dementia that is alert to person and place brought over from the nursing facility. He is a DNR with limited medical intervention. It was reported that this morning he had ?coffee- ground? bowel movement. He is with his . It appears that this morning was the only time that this has happened. The patient has no complaints. No prior interventions. Not on anticoagulation. Related Data Home Medications Medication Instructions Recorded Confirmed terazosin 10 mg PO QPM #0 11/02/16 10/28/17 calcium carbonate [Calcium 500] 250 mg PO BID 10/28/17 10/28/17 cholecalciferol (vitamin D3) 5,000 unit PO DAILY 10/28/17 10/28/17 [Vitamin D3] glipizide 5 mg PO BID 10/28/17 10/28/17 losartan 50 mg PO DAILY 10/28/17 10/28/17 metformin 500 mg PO BID 10/28/17 10/28/17 multivitamin 1 tab PO DAILY 10/28/17 10/28/17 sertraline 50 mg PO DAILY 10/28/17 10/28/17 methenamine hippurate 1 g PO DAILY 05/09/18 05/09/18 risperidone 0.25 mg 05/09/18 terazosin 10 mg PO DAILY 05/09/18 05/09/18 Previous Rx's Medication Instructions Recorded clopidogrel [Plavix] 75 mg PO DAILY #30 tab 10/31/17 dextrose 50 % in water (D50W) 0 gm IV PRN PRN #30 ml 10/31/17 docusate sodium 100 mg PO BID #60 cap 10/31/17 enoxaparin [Lovenox] 40 mg SUB-Q QHS #15 ml 10/31/17 ropinirole [Requip] 1.5 mg PO BEDTIME #45 tab 10/31/17 rosuvastatin [Crestor] 20 mg PO BEDTIME #30 tab 10/31/17 Allergies Allergy/AdvReac Type Severity Reaction Status Date / Time shrimp Allergy Intermediate Rash Verified 12/15/17 19:15 ezetimibe [From Vytorin] Allergy Mild SENSITIVITY Verified 12/15/17 19:15 simvastatin Allergy Mild SENSITIVITY Verified 12/15/17 19:15 Ihmakff-Cqw-Uos Reductase Allergy Verified 05/09/18 08:08 Inhibitor lactose AdvReac Intermediate Gastrointestinal Verified 12/15/17 19:15 Upset Review of Systems Review of Systems Somewhat limited given patient's history of dementia but he does report the follow Constitutional Denies fatigue and Denies fever(s) Cardiovascular Denies chest pain and Denies dyspnea Respiratory Denies dyspnea Gastrointestinal Gastrointestinal: Denies abdominal pain Comments: ?Coffee-ground? bowel movement this morning reported by nursing staff Genitourinary Denies dysuria Musculoskeletal Denies arthralgias Neurologic Denies behavioral changes Psychiatric Denies behavioral changes Endocrine Denies fatigue Hematologic/Lymphatic Denies easy bleeding PFSH Medical History Dementia (Acute) Cataract (Acute) Abnormality of gait and mobility (Acute) Atherosclerosis (Acute) Colonic polyp (Acute) Nasal polyp (Acute) TIA (transient ischemic attack) (Acute) Urinary incontinence (Acute) Hearing difficulty of both ears (Acute) Restless leg syndrome (Acute) Rotator cuff dysfunction (Acute) BPH (benign prostatic hyperplasia) (Chronic) CAD (coronary artery disease) (Chronic) Depression (Chronic) Diabetes type 2, controlled (Chronic) HTN (hypertension) (Chronic) Hyperlipidemia (Chronic) Surgical History Hx of appendectomy (Acute) 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) Hx of appendectomy (Chronic) Hx of rotator cuff surgery (Chronic) Social History household members: spouse Smoking Status: Former smoker alcohol intake: current Exam Initial Vital Signs Initial Vital Signs: Vital Signs Temperature 97.3 F L 05/09/18 07:14 Pulse Rate 62 05/09/18 07:14 Respiratory Rate 15 05/09/18 07:14 Blood Pressure 126/70 05/09/18 07:14 Pulse Oximetry 97 05/09/18 07:14 Const General: cooperative, comfortable, well developed, well groomed and No acute distress Orientation: alert, awake, oriented to person, oriented to place (Knows that he is in the hospital but does not know City) and other (Does not know why he is here) [facility] Head: normal to inspection and normocephalic Eyes General: appearance normal, both eyes and all related structures Chest Chest: normal inspection of the chest Resp Effort & Inspection: normal respiratory effort Auscultation: clear to auscultation bilaterally Cardio Rate: regular rate Rhythm: regular rhythm Heart Sounds: murmur systolic III/ GI Inspection: normal to inspection and non-distended Palpation: soft, No firm and No tender Rectal Exam: normal sphincter tone, heme negative stool and No hemorrhoids Skin Lesions: no lesions Rashes: no rashes Neuro General: alert and awake Speech: speech normal Extrem General: normal to inspection and capillary refill normal Psych Appearance: grossly normal and well kempt Course Orders Ordered: ED Orders 05/09/18 07:35 Complete Blood Count AUTO DIFF Stat Comprehensive Metabolic Panel Stat Partial Thromboplastin Time Stat Prothrombin Time INR Stat Type and Screen Stat Vital Signs - 8 hr 05/09/18 07:14 Temperature 97.3 F L Pulse Rate 62 Respiratory Rate 15 Blood Pressure 126/70 Pulse Oximetry 97 Medical Decision Making Lab Data Lab results reviewed: Yes I reviewed the patient's lab results. Result diagrams: 05/09/18 07:35 05/09/18 07:35 Lab Results 05/09/18 05/09/18 05/09/18 Range/Units 07:35 07:35 07:35 WBC 5.9 (4.5-11.0) X10^3/uL RBC 4.20 L (4.5-5.9) X10^6/uL Hgb 12.7 L (13.5-17.5) g/dL Hct 37.7 L (41-53) % MCV 89.8 (80-100) fL MCH 30.2 (26-34) PG MCHC 33.7 (30-36) % RDW 13.5 (11.6-14.8) % Plt Count 251 (150-400) X10^3/uL Neut % (Auto) 57.8 (50-75) % Lymph % (Auto) 26.1 (25-40) % [place] % (Auto) 9.9 (3-14) % Eos % (Auto) 5.3 H (2-4) % Baso % (Auto) 0.9 (0-2) % Neut # (Auto) 3400 (8576-5207) /uL PT 11.4 (10.1-12.7) SECONDS INR 1.0 (0.9-1.3) APTT 26 L (26.4-36.2) SECONDS Sodium 139 (137-145) mmol/L Potassium 4.1 (3.4-5.1) mmol/L Chloride 99 (98-107) mmol/L Carbon Dioxide 27 (22-32) mmol/L BUN 14 (9-20) mg/dL Creatinine 0.70 (0.66-1.25) mg/dL Estimated GFR > 60.0 (>60) mL/min BUN/Creatinine Ratio 20.0 (6-22) Glucose 332 H (80-110) mg/dL Calcium 9.4 (8.4-10.2) mg/dL Total Bilirubin 0.9 (0.2-1.3) mg/dL AST 19 (17-59) IU/L ALT 41 (21-72) IU/L Alkaline Phosphatase 80 (38-126) U/L Total Protein 6.9 (6.3-8.2) g/dL Albumin 4.0 (3.5-5.0) g/dL Globulin 2.9 (1.7-4.1) g/dL Albumin/Globulin Ratio 1.4 (1.0-2.8) MDM Narrative Medical decision making narrative: Patient not tachycardic, not hypotensive. Hemoglobin hematocrit baseline. His rectal exam here in the emergency department was Hemoccult negative. He has no abdominal tenderness. Does not have an elevated BUN and creatinine. Patient is a DNR with limited medical intervention. His is at bedside. I did have a discussion with them regarding his symptoms. I do not feel that based on his labs, physical exam, vital signs that he needs admitted to the hospital today for emergent colonoscopy. After discussion with the patient's there is even some question as to whether not was seen in his bowel movement this morning was actually blood. It was certainly not bright red blood per the patient's . Informed the patient's that she needed to contact his primary care doctor to discuss his symptoms and further workup and treatment. She was given return precautions. She expressed understanding and agreement with plan. Discharge Plan Departure Patient Disposition: Home Clinical Impression: Discoloration of stool Instructions: Gastrointestinal Bleeding Activity Restrictions/Additional Instructions: The gastrointestinal bleeding information that you were provided today was for your information. I do recommend that you contact [facility] primary care doctor for a follow-up. Return to the emergency department for any new symptoms, abdominal pain, vomiting, having bright red bowel movements, or any other concerning symptoms. Prescriptions: No Action terazosin 10 MG capsule 10 mg PO QPM Qty: 0 RF: 0 multivitamin Tablet 1 tab PO DAILY RF: 0 losartan 50 mg Tablet 50 mg PO DAILY RF: 0 metformin 500 mg Tablet 500 mg PO BID RF: 0 calcium carbonate [Calcium 500] 500 mg calcium (1,250 mg) Tablet 250 mg PO BID RF: 0 sertraline 50 mg Tablet 50 mg PO DAILY RF: 0 glipizide 5 mg Tablet 5 mg PO BID RF: 0 cholecalciferol (vitamin D3) [Vitamin D3] 5,000 unit Tablet 5,000 unit PO DAILY RF: 0 docusate sodium 100 mg Capsule 100 mg PO BID Qty: 60 RF: 0 enoxaparin [Lovenox] 40 mg/0.4 mL Syringe 40 mg Sub-Q QHS Qty: 15 RF: 0 dextrose 50 % in water (D50W) Syringe IV PRN PRN (Reason: Blood Sugar - Low) Qty: 30 RF: 0 rosuvastatin [Crestor] 10 mg Tablet 20 mg PO BEDTIME Qty: 30 RF: 0 ropinirole [Requip] 1 mg Tablet 1.5 mg PO BEDTIME Qty: 45 RF: 0 clopidogrel [Plavix] 75 mg Tablet 75 mg PO DAILY Qty: 30 RF: 0 methenamine hippurate 1 g PO DAILY RF: 0 risperidone 0.25 mg RF: 0 terazosin 10 mg PO DAILY RF: 0
[2018-05-09 07:14] VITALS: BP 126/70; PULSE 62; RESP 15; TEMP 36.3; O2SAT 97
[2018-05-09 07:40] VITALS: BP 134/60; PULSE 60; RESP 16; O2SAT 95
--- NOTE | 2018-05-09 07:48 | TAR.TRANSNT ---
Received pt from [facility] accompanied by staff member via . Per staff, pt had a coffeee ground like BM this morning witnessed by staff. Pt has no c/o at this time.
[2018-05-09 07:53] LABS: Add Manual Diff / Slide Review NO; Basophils Percent Auto 0.9 % (0-2); Eosinophils Percent Auto 5.3 % (2-4); Hematocrit 37.7 % (41-53); Hemoglobin 12.7 g/dL (13.5-17.5); Lymphocytes Percent Auto 26.1 % (25-40); Mean Corpuscular HGB Conc 33.7 % (30-36); Mean Corpuscular Hemoglobin 30.2 PG (26-34); Mean Corpuscular Volume 89.8 fL (80-100); Monocytes Percent Auto 9.9 % (3-14); Neutrophils Absolute Auto 3400 /uL (3000-5900); Neutrophils Percent Auto 57.8 % (50-75); Platelet Count 251 X10^3/uL (150-400); Red Cell Distribution Width 13.5 % (11.6-14.8); White Blood Cell Count 5.9 X10^3/uL (4.5-11.0)
[2018-05-09 08:01] LABS: Prothrombin Time 11.4 SECONDS (10.1-12.7)
[2018-05-09 08:03] LABS: PTT Partial Thromboplastin Tim 26 SECONDS (26.4-36.2)
[2018-05-09 08:07] LABS: Alanine Aminotransferase 41 IU/L (21-72); Albumin Globulin Ratio 1.4 (1.0-2.8); Alkaline Phosphatase 80 U/L (38-126); Aspartate Aminotransferase 19 IU/L (17-59); Bilirubin Total 0.9 mg/dL (0.2-1.3); Blood Urea Nitrogen 14 mg/dL (9-20); Calcium 9.4 mg/dL (8.4-10.2); Carbon Dioxide 27 mmol/L (22-32); Chloride 99 mmol/L (98-107); Estimated Glomerular Filt Rate > 60.0 mL/min (>60); Globulin 2.9 g/dL (1.7-4.1); Glucose 332 mg/dL (80-110); HEMOLYSIS < 15 (0-50); Potassium 4.1 mmol/L (3.4-5.1); Sodium 139 mmol/L (137-145); Total Protein 6.9 g/dL (6.3-8.2)
[2018-05-09 09:09] VITALS: BP 134/67; PULSE 63; RESP 16; O2SAT 97
== END 2018-05-09 08:47 ==
PROVIDERS: Emergency Provider Emergency Medicine; PCP Internal Medicine
DX: R19.5 Other fecal abnormalities (principal)
CPT/HCPCS: 80053; 85025; 85610; 85730; 86850; 86900; 86901; 99282; 99283

== ENCOUNTER 2018-08-07 11:04 | Emergency (ER) | payer MEDICARE, OTHER, SELFPAY ==
[2017-10-28 14:45] VITALS: BMI 28.0
[2018-08-07 11:05] VITALS: BP 126/58; PULSE 63; RESP 18; TEMP 37; O2SAT 99
--- NOTE | 2018-08-07 11:26 | ED.NEUROSD ---
HPI - Neuro Symptoms/Deficit General Chief Complaint: Neuro Symptoms/Deficit Stated Complaint: high blood sugar,cannot stay awake Time Seen by Provider: 08/07/18 11:09 Source: family Mode of arrival: wheelchair Limitations: other (Dementia) History of Present Illness HPI Narrative: Patient is a 83 male with a history of dementia. Is currently at his baseline mental status per his photographer lithographic and also family. Is reported that this morning his photographer lithographic got him out of the shower. At approximately 0930 this sat him down to have breakfast. After eating breakfast there was approximately hour and a half period of time where they had difficulty arousing the patient. They stated that they took his blood pressure in the systolic was in the 90s. They also took his blood sugar and it was greater than 400. He was brought over here to the emergency department for evaluation. They stated that as he was being wheeled over from his care facility when they went outside he became responsive again and is now currently back to normal. On Anticoagulants: No Related Data Home Medications Medication Instructions Recorded Confirmed terazosin 10 mg PO QPM #0 11/02/16 10/28/17 calcium carbonate [Calcium 500] 250 mg PO BID 10/28/17 10/28/17 cholecalciferol (vitamin D3) 5,000 unit PO DAILY 10/28/17 10/28/17 [Vitamin D3] glipizide 5 mg PO BID 10/28/17 10/28/17 losartan 50 mg PO DAILY 10/28/17 10/28/17 metformin 500 mg PO BID 10/28/17 10/28/17 multivitamin 1 tab PO DAILY 10/28/17 10/28/17 sertraline 50 mg PO DAILY 10/28/17 10/28/17 methenamine hippurate 1 g PO DAILY 05/09/18 05/09/18 risperidone 0.25 mg 05/09/18 terazosin 10 mg PO DAILY 05/09/18 05/09/18 Previous Rx's Medication Instructions Recorded clopidogrel [Plavix] 75 mg PO DAILY #30 tab 10/31/17 dextrose 50 % in water (D50W) 0 gm IV PRN PRN #30 ml 10/31/17 docusate sodium 100 mg PO BID #60 cap 10/31/17 enoxaparin [Lovenox] 40 mg SUB-Q QHS #15 ml 10/31/17 ropinirole [Requip] 1.5 mg PO BEDTIME #45 tab 10/31/17 rosuvastatin [Crestor] 20 mg PO BEDTIME #30 tab 10/31/17 Allergies Allergy/AdvReac Type Severity Reaction Status Date / Time shrimp Allergy Intermediate Rash Verified 12/15/17 19:15 ezetimibe [From Vytorin] Allergy Mild SENSITIVITY Verified 12/15/17 19:15 simvastatin Allergy Mild SENSITIVITY Verified 12/15/17 19:15 Kxtelqy-Bbs-Bep Reductase Allergy Verified 05/09/18 08:08 Inhibitor lactose AdvReac Intermediate Gastrointestinal Verified 12/15/17 19:15 Upset Review of Systems Review of Systems Provided by photographer lithographic and family Cardiovascular Denies dyspnea Respiratory Denies dyspnea Gastrointestinal Gastrointestinal: Denies vomiting Integumentary/Breasts Denies rash Neurologic Reports behavioral changes Psychiatric Reports behavioral changes Hematologic/Lymphatic Comments: Not on blood thinners PFSH Medical History Dementia (Acute) Cataract (Acute) Abnormality of gait and mobility (Acute) Atherosclerosis (Acute) Colonic polyp (Acute) Hearing difficulty of both ears (Acute) Nasal polyp (Acute) Restless leg syndrome (Acute) Rotator cuff dysfunction (Acute) TIA (transient ischemic attack) (Acute) Urinary incontinence (Acute) BPH (benign prostatic hyperplasia) (Chronic) CAD (coronary artery disease) (Chronic) Depression (Chronic) Diabetes type 2, controlled (Chronic) HTN (hypertension) (Chronic) Hyperlipidemia (Chronic) Surgical History Hx of appendectomy (Acute) 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) Hx of appendectomy (Chronic) Hx of rotator cuff surgery (Chronic) Social History household members: spouse Smoking Status: Former smoker alcohol intake: current Social History household members: spouse Smoking Status: Former smoker alcohol intake: current Exam Initial Vital Signs Initial Vital Signs: Vital Signs Temperature 98.6 F 08/07/18 11:05 Pulse Rate 63 08/07/18 11:05 Respiratory Rate 18 08/07/18 11:05 Blood Pressure 126/58 L 08/07/18 11:05 Pulse Oximetry 99 08/07/18 11:05 Const General: cooperative, comfortable, well developed, well groomed and No acute distress Orientation: alert, awake and confused [facility] Head: normal to inspection and normocephalic Resp Effort & Inspection: normal respiratory effort Auscultation: clear to auscultation bilaterally Cardio Rate: regular rate Rhythm: regular rhythm Skin Lesions: no lesions Rashes: no rashes Neuro Other: Patient is confused. However is at baseline per family and caregivers Extrem Other: No gross abnormalities. Moves all 4 extremities spontaneously Course Vital Signs - 8 hr 08/07/18 11:05 Temperature 98.6 F Pulse Rate 63 Respiratory Rate 18 Blood Pressure 126/58 L Pulse Oximetry 99 MDM - Neuro Symptoms/Deficit MDM Narrative Medical decision making narrative: Patient is a DNR/DNI with comfort measures only. He has at baseline neurologic status. His blood sugar was slightly elevated here. Had a long discussion with the family regarding his symptoms. Unsure the exact etiology. Informed them that we could do things like head CT and blood work to evaluate for stroke/TIA. Do an EKG to evaluate for arrhythmia, do lab work to evaluate for DKA. I feel that all of these are unlikely given his current exam. The family decided not to do any testing here in the emergency so will hold on further workup for now. They were given return precautions. Discharge Plan Departure Patient Disposition: Home Clinical Impression: Confusion Instructions: How to Prevent Falls Activity Restrictions/Additional Instructions: After our discussion we decided not to do any laboratory work or CT scans. I do not think this is unreasonable. Continue with all of his medications as directed. Return to the emergency department for any new or worsening symptoms Prescriptions: No Action terazosin 10 MG capsule 10 mg PO QPM Qty: 0 RF: 0 multivitamin Tablet 1 tab PO DAILY RF: 0 losartan 50 mg Tablet 50 mg PO DAILY RF: 0 metformin 500 mg Tablet 500 mg PO BID RF: 0 calcium carbonate [Calcium 500] 500 mg calcium (1,250 mg) Tablet 250 mg PO BID RF: 0 sertraline 50 mg Tablet 50 mg PO DAILY RF: 0 glipizide 5 mg Tablet 5 mg PO BID RF: 0 cholecalciferol (vitamin D3) [Vitamin D3] 5,000 unit Tablet 5,000 unit PO DAILY RF: 0 docusate sodium 100 mg Capsule 100 mg PO BID Qty: 60 RF: 0 enoxaparin [Lovenox] 40 mg/0.4 mL Syringe 40 mg Sub-Q QHS Qty: 15 RF: 0 dextrose 50 % in water (D50W) Syringe IV PRN PRN (Reason: Blood Sugar - Low) Qty: 30 RF: 0 rosuvastatin [Crestor] 10 mg Tablet 20 mg PO BEDTIME Qty: 30 RF: 0 ropinirole [Requip] 1 mg Tablet 1.5 mg PO BEDTIME Qty: 45 RF: 0 clopidogrel [Plavix] 75 mg Tablet 75 mg PO DAILY Qty: 30 RF: 0 methenamine hippurate 1 g PO DAILY RF: 0 risperidone 0.25 mg RF: 0 terazosin 10 mg PO DAILY RF: 0 Referrals: Kaden Dunn MD [Primary Care Provider] -
== END 2018-08-07 12:00 | disposition home or self-care (01) ==
PROVIDERS: Emergency Provider Emergency Medicine; PCP Internal Medicine
DX: R41.0 Disorientation, unspecified (principal)
CPT/HCPCS: 99282

== ENCOUNTER → 2018-10-05 08:35 | Outpatient (REF) | payer MEDICARE, OTHER, SELFPAY ==
[2017-10-28 14:45] VITALS: BMI 28.0
[2018-10-05 10:18] LABS: Add Manual Diff / Slide Review NO; Basophils Absolute Auto 0 /uL (0-100); Basophils Percent Auto 0.6 % (0-2); Eosinophils Absolute Auto 300 /uL (0-450); Eosinophils Percent Auto 4.7 % (2-4); Hematocrit 38.7 % (41-53); Hemoglobin 13.1 g/dL (13.5-17.5); Lymphocytes Absolute Auto 1900 /uL (1100-4500); Lymphocytes Percent Auto 28.2 % (25-40); Mean Corpuscular HGB Conc 33.9 % (30-36); Mean Corpuscular Hemoglobin 30.8 PG (26-34); Mean Corpuscular Volume 90.9 fL (80-100); Monocytes Absolute Auto 400 /uL (0-900); Monocytes Percent Auto 6.5 % (3-14); Neutrophils Absolute Auto 4100 /uL (1500-7000); Platelet Count 251 X10^3/uL (150-400); Red Blood Cell Count 4.26 X10^6/uL (4.5-5.9); Red Cell Distribution Width 13.4 % (11.6-14.8); White Blood Cell Count 6.9 X10^3/uL (4.5-11.0)
[2018-10-05 10:31] LABS: Blood Urea Nitrogen 15 mg/dL (9-20); Calcium 9.2 mg/dL (8.4-10.2); Carbon Dioxide 24 mmol/L (22-32); Chloride 103 mmol/L (98-107); Estimated Glomerular Filt Rate > 60.0 mL/min (>60); Glucose 203 mg/dL (80-110); HEMOLYSIS < 15 (0-50); Sodium 138 mmol/L (137-145)
[2018-10-05 11:07] LABS: Hemoglobin A1C% w Est Avg Glu 11.1 % (4.0-6.0)
== END ==
LOC: LAB 08:35
PROVIDERS: PCP Internal Medicine; Visit Provider Internal Medicine
DX: Z79.899 Other long term (current) drug therapy (principal)
CPT/HCPCS: 36415; 80048; 83036; 85025

== ENCOUNTER → 2018-10-31 12:16 | Outpatient (CLI) | payer MEDICARE, OTHER, SELFPAY ==
[2017-10-28 14:45] VITALS: BMI 28.0
[2018-10-31 14:22] LABS: Prostate Specific Antigen 1.25 ng/mL (0.10-4.00)
== END ==
PROVIDERS: PCP Internal Medicine; Visit Provider Specialist
DX: N40.1 Benign prostatic hyperplasia with lower urinary tract symptoms (principal)
CPT/HCPCS: 36415; 84153

== ENCOUNTER → 2019-02-26 10:00 | Outpatient (CLI) | payer MEDICARE, OTHER, SELFPAY ==
[2017-10-28 14:45] VITALS: BMI 28.0
[2019-02-26 10:44] LABS: Add Manual Diff / Slide Review NO; Basophils Absolute Auto 0 /uL (0-100); Basophils Percent Auto 0.4 % (0-2); Eosinophils Absolute Auto 300 /uL (0-450); Eosinophils Percent Auto 4.1 % (2-4); Hematocrit 38.7 % (41-53); Hemoglobin 13.4 g/dL (13.5-17.5); Lymphocytes Absolute Auto 1500 /uL (1100-4500); Lymphocytes Percent Auto 20.4 % (25-40); Mean Corpuscular HGB Conc 34.7 % (30-36); Mean Corpuscular Hemoglobin 31.4 PG (26-34); Mean Corpuscular Volume 90.3 fL (80-100); Monocytes Absolute Auto 600 /uL (0-900); Monocytes Percent Auto 8.3 % (3-14); Neutrophils Absolute Auto 4900 /uL (1500-7000); Neutrophils Percent Auto 66.8 % (50-75); Platelet Count 238 X10^3/uL (150-400); Red Blood Cell Count 4.28 X10^6/uL (4.5-5.9); Red Cell Distribution Width 13.4 % (11.6-14.8); White Blood Cell Count 7.3 X10^3/uL (4.5-11.0)
[2019-02-26 11:31] LABS: Alanine Aminotransferase 23 IU/L (21-72); Albumin Globulin Ratio 1.4 (1.0-2.8); Alkaline Phosphatase 83 U/L (38-126); Aspartate Aminotransferase 20 IU/L (17-59); Bilirubin Total 1.4 mg/dL (0.2-1.3); Blood Urea Nitrogen 15 mg/dL (9-20); Calcium 9.5 mg/dL (8.4-10.2); Carbon Dioxide 28 mmol/L (22-32); Chloride 101 mmol/L (98-107); Estimated Glomerular Filt Rate > 60.0 mL/min (>60); Globulin 2.9 g/dL (1.7-4.1); Glucose 227 mg/dL (80-110); HEMOLYSIS < 15 (0-50); Sodium 138 mmol/L (137-145); Total Protein 6.9 g/dL (6.3-8.2)
== END ==
PROVIDERS: PCP Internal Medicine; Visit Provider Internal Medicine
DX: R45.1 Restlessness and agitation (principal)
CPT/HCPCS: 36415; 80053; 85025

== ENCOUNTER → 2019-04-09 16:02 | Outpatient (CLI) | payer MEDICARE, OTHER, SELFPAY ==
[2017-10-28 14:45] VITALS: BMI 28.0
[2019-04-09 17:07] LABS: Alanine Aminotransferase 22 IU/L (21-72); Albumin 4.2 g/dL (3.5-5.0); Albumin Globulin Ratio 1.6 (1.0-2.8); Alkaline Phosphatase 77 U/L (38-126); Aspartate Aminotransferase 30 IU/L (17-59); BUN Creatinine Ratio 24.4 (6-22); Bilirubin Total 0.7 mg/dL (0.2-1.3); Blood Urea Nitrogen 22 mg/dL (9-20); Calcium 9.9 mg/dL (8.4-10.2); Carbon Dioxide 25 mmol/L (22-32); Chloride 101 mmol/L (98-107); Estimated Glomerular Filt Rate > 60.0 mL/min (>60); Globulin 2.7 g/dL (1.7-4.1); Glucose 215 mg/dL (80-110); HEMOLYSIS < 15 (0-50); Potassium 4.4 mmol/L (3.4-5.1); Sodium 138 mmol/L (137-145); Total Protein 6.9 g/dL (6.3-8.2)
[2019-04-09 17:08] LABS: Hemoglobin A1C% w Est Avg Glu 9.6 % (4.0-6.0)
[2019-04-09 17:11] LABS: Add Manual Diff / Slide Review NO; Basophils Absolute Auto 0 /uL (0-100); Basophils Percent Auto 0.3 % (0-2); Eosinophils Absolute Auto 300 /uL (0-450); Eosinophils Percent Auto 2.8 % (2-4); Hematocrit 39.5 % (41-53); Hemoglobin 13.6 g/dL (13.5-17.5); Lymphocytes Absolute Auto 1800 /uL (1100-4500); Lymphocytes Percent Auto 18.9 % (25-40); Mean Corpuscular HGB Conc 34.4 % (30-36); Mean Corpuscular Hemoglobin 30.8 PG (26-34); Mean Corpuscular Volume 89.5 fL (80-100); Monocytes Absolute Auto 600 /uL (0-900); Monocytes Percent Auto 6.8 % (3-14); Neutrophils Absolute Auto 6700 /uL (1500-7000); Neutrophils Percent Auto 71.2 % (50-75); Platelet Count 281 X10^3/uL (150-400); Red Blood Cell Count 4.41 X10^6/uL (4.5-5.9); Red Cell Distribution Width 13.6 % (11.6-14.8); White Blood Cell Count 9.3 X10^3/uL (4.5-11.0)
== END ==
PROVIDERS: PCP Internal Medicine; Visit Provider Internal Medicine
DX: R79.89 Other specified abnormal findings of blood chemistry (principal); R68.89 Other general symptoms and signs
CPT/HCPCS: 36415; 80053; 83036; 85025

== ENCOUNTER → 2019-04-22 11:27 | Outpatient (ROUT) | payer MEDICARE, OTHER, SELFPAY ==
[2017-10-28 14:45] VITALS: BMI 28.0
[2019-04-22 11:29] LABS: Bacteria Urine None Seen; RBC Urine None Seen (0-5/HPF); WBC Urine None Seen (0-5/HPF)
[2019-04-22 11:52] LABS: Appearance Urine UA CLEAR; Bilirubin Urine UA NEGATIVE (NEGATIVE); Color Urine UA YELLOW; Glucose Urine UA NEGATIVE (Negative); Ketones Urine UA NEGATIVE (NEGATIVE); Leukocyte Esterase Urine UA NEGATIVE (NEGATIVE); Nitrite Urine UA NEGATIVE (Negative); Occult Blood Urine UA NEGATIVE (Negative); Protein Urine UA NEGATIVE (Negative); Urobilinogen Urine UA 0.2 E.U./dL (0.2); pH Urine UA 7.5 (4.5-8.0)
[2019-04-22 12:04] LABS: Culture Indicated Urine Cult Not Indicated; Urine Comments Microscopic Normal
== END ==
PROVIDERS: PCP Internal Medicine; Visit Provider Internal Medicine
DX: R45.1 Restlessness and agitation (principal)
CPT/HCPCS: 81001

== ENCOUNTER → 2019-07-12 07:33 | Outpatient (ROUT) | payer MEDICARE, OTHER, SELFPAY ==
[2017-10-28 14:45] VITALS: BMI 28.0
[2019-07-12 08:15] LABS: Add Manual Diff / Slide Review NO; Basophils Absolute Auto 100 /uL (0-100); Basophils Percent Auto 0.7 % (0-2); Eosinophils Absolute Auto 500 /uL (0-450); Eosinophils Percent Auto 7.3 % (2-4); Hematocrit 35.3 % (41-53); Hemoglobin 12.3 g/dL (13.5-17.5); Lymphocytes Absolute Auto 1800 /uL (1100-4500); Lymphocytes Percent Auto 25.6 % (25-40); Mean Corpuscular HGB Conc 34.8 % (30-36); Mean Corpuscular Hemoglobin 30.9 PG (26-34); Mean Corpuscular Volume 88.8 fL (80-100); Monocytes Absolute Auto 500 /uL (0-900); Monocytes Percent Auto 7.2 % (3-14); Neutrophils Absolute Auto 4200 /uL (1500-7000); Neutrophils Percent Auto 59.2 % (50-75); Platelet Count 257 X10^3/uL (150-400); Red Blood Cell Count 3.98 X10^6/uL (4.5-5.9); Red Cell Distribution Width 13.1 % (11.6-14.8); White Blood Cell Count 7.1 X10^3/uL (4.5-11.0)
[2019-07-12 08:35] LABS: Hemoglobin A1C% w Est Avg Glu 7.6 % (4.0-6.0)
[2019-07-12 08:37] LABS: BUN Creatinine Ratio 31.7 (6-22); Blood Urea Nitrogen 19 mg/dL (9-20); Calcium 9.2 mg/dL (8.4-10.2); Carbon Dioxide 25 mmol/L (22-32); Chloride 107 mmol/L (98-107); Estimated Glomerular Filt Rate > 60.0 mL/min (>60); Glucose 122 mg/dL (80-110); HEMOLYSIS < 15 (0-50); Potassium 3.8 mmol/L (3.4-5.1); Sodium 140 mmol/L (137-145)
[2019-07-12 09:24] LABS: Vitamin B12 404 pg/mL (239-931)
== END ==
PROVIDERS: PCP Internal Medicine; Visit Provider Nurse Practitioner Family
DX: F03.90 Unspecified dementia, unspecified severity, without behavioral disturbance, psychotic disturbance, mood disturbance, and anxiety (principal); R45.1 Restlessness and agitation; E11.9 Type 2 diabetes mellitus without complications
CPT/HCPCS: 36415; 80048; 82607; 83036; 85025

== ENCOUNTER → 2019-11-29 07:47 | Outpatient (ROUT) | payer MEDICARE, OTHER, SELFPAY ==
[2017-10-28 14:45] VITALS: BMI 28.0
[2019-11-29 08:08] LABS: Add Manual Diff / Slide Review NO; Basophils Absolute Auto 0 /uL (0-100); Basophils Percent Auto 0.6 % (0-2); Eosinophils Absolute Auto 300 /uL (0-450); Eosinophils Percent Auto 6.1 % (2-4); Hematocrit 37.1 % (41-53); Hemoglobin 12.5 g/dL (13.5-17.5); Lymphocytes Absolute Auto 1700 /uL (1100-4500); Mean Corpuscular HGB Conc 33.7 % (30-36); Mean Corpuscular Hemoglobin 30.7 PG (26-34); Mean Corpuscular Volume 90.9 fL (80-100); Monocytes Absolute Auto 400 /uL (0-900); Monocytes Percent Auto 8.4 % (3-14); Neutrophils Absolute Auto 2700 /uL (1500-7000); Neutrophils Percent Auto 51.9 % (50-75); Platelet Count 204 X10^3/uL (150-400); Red Blood Cell Count 4.08 X10^6/uL (4.5-5.9); White Blood Cell Count 5.3 X10^3/uL (4.5-11.0)
[2019-11-29 08:26] LABS: Hemoglobin A1C% w Est Avg Glu 6.9 % (4.0-6.0)
[2019-11-29 08:28] LABS: BUN Creatinine Ratio 26.4 (6-22); Blood Urea Nitrogen 14 mg/dL (9-20); Calcium 9.3 mg/dL (8.4-10.2); Carbon Dioxide 24 mmol/L (22-32); Chloride 106 mmol/L (98-107); Estimated Glomerular Filt Rate > 60.0 mL/min (>60); Glucose 99 mg/dL (80-110); HEMOLYSIS < 15 (0-50); Potassium 3.8 mmol/L (3.4-5.1); Sodium 138 mmol/L (137-145)
[2019-11-29 08:39] LABS: Vitamin D 25 Hydroxy (D3) 90.2 ng/mL (30.0-100.0)
[2019-11-29 08:54] LABS: Thyroid Stimulating Hormone 1.62 uIU/mL (0.47-4.68)
== END ==
PROVIDERS: PCP Internal Medicine; Visit Provider Nurse Practitioner Family
DX: R41.0 Disorientation, unspecified (principal); E11.9 Type 2 diabetes mellitus without complications; E56.9 Vitamin deficiency, unspecified
CPT/HCPCS: 36415; 80048; 82306; 83036; 84443; 85025

== ENCOUNTER → 2020-01-20 09:45 | Outpatient (ROUT) | payer MEDICARE, OTHER, SELFPAY ==
[2017-10-28 14:45] VITALS: BMI 28.0
[2020-01-20 10:11] LABS: Add Manual Diff / Slide Review NO; Basophils Absolute Auto 0 /uL (0-100); Basophils Percent Auto 0.2 % (0-2); Eosinophils Absolute Auto 200 /uL (0-450); Eosinophils Percent Auto 1.2 % (2-4); Hematocrit 36.7 % (41-53); Hemoglobin 12.2 g/dL (13.5-17.5); Lymphocytes Absolute Auto 1200 /uL (1100-4500); Lymphocytes Percent Auto 9.1 % (25-40); Mean Corpuscular HGB Conc 33.2 % (30-36); Mean Corpuscular Hemoglobin 30.7 PG (26-34); Mean Corpuscular Volume 92.6 fL (80-100); Monocytes Absolute Auto 1000 /uL (0-900); Monocytes Percent Auto 7.5 % (3-14); Neutrophils Absolute Auto 11200 /uL (1500-7000); Platelet Count 197 X10^3/uL (150-400); Red Blood Cell Count 3.96 X10^6/uL (4.5-5.9); Red Cell Distribution Width 13.5 % (11.6-14.8); White Blood Cell Count 13.7 X10^3/uL (4.5-11.0)
[2020-01-20 10:29] LABS: Alanine Aminotransferase 17 IU/L (<50); Albumin 3.8 g/dL (3.5-5.0); Albumin Globulin Ratio 1.4 (1.0-2.8); Alkaline Phosphatase 49 U/L (38-126); Aspartate Aminotransferase 23 IU/L (17-59); BUN Creatinine Ratio 33.9 (6-22); Bilirubin Total 1.3 mg/dL (0.2-1.3); Blood Urea Nitrogen 20 mg/dL (9-20); Calcium 9.7 mg/dL (8.4-10.2); Carbon Dioxide 25 mmol/L (22-32); Chloride 105 mmol/L (98-107); Estimated Glomerular Filt Rate > 60.0 mL/min (>60); Globulin 2.7 g/dL (1.7-4.1); Glucose 114 mg/dL (80-110); HEMOLYSIS < 15 (0-50); Potassium 3.9 mmol/L (3.4-5.1); Sodium 137 mmol/L (137-145); Total Protein 6.5 g/dL (6.3-8.2)
== END ==
PROVIDERS: PCP Internal Medicine; Visit Provider Internal Medicine
DX: R53.83 Other fatigue (principal)
CPT/HCPCS: 36415; 80053; 85025

== ENCOUNTER 2020-01-20 19:34 | Emergency (ER) | payer MEDICARE, OTHER, SELFPAY ==
[2017-10-28 14:45] VITALS: BMI 28.0
[2020-01-20 19:35] VITALS: BP 120/65; PULSE 63; RESP 16; TEMP 36.8; O2SAT 95
--- NOTE | 2020-01-20 19:44 | DI.CT.S_ITS ---
PROCEDURE: CT HEAD/BRAIN WO CON INDICATIONS: altered TECHNIQUE: Noncontrast 4.5 mm thick angled axial sections acquired from the foramen magnum to the vertex, with coronal and sagittal reformats. For radiation dose reduction, the following was used: automated exposure control, adjustment of mA and/or kV according to patient size. COMPARISON: [facility], CT, CT HEAD/BRAIN WO CON, 12/15/2017, 19:07. FINDINGS: Image quality: Excellent. CSF spaces: Basal cisterns are patent. No extra-axial fluid collections. The ventricles are symmetric in size and shape. Brain: No intracranial bleeds or masses. There is cerebral volume loss for age, with resultant ventricular and sulcal prominence. There are periventricular and deep white matter chronic small vessel ischemic changes. There is intracranial internal carotid artery atherosclerosis. Skull and face: Calvarium and visualized facial bones appear intact, without suspicious lesions. Sinuses: Visualized sinuses and mastoids are clear. IMPRESSION: No acute intracranial process. Dictated by: Mayco López M.D. on 01/20/2020 at 20:33 Approved by: Mayco López M.D. on 01/20/2020 at 20:35
[2020-01-20 20:05] LABS: Add Manual Diff / Slide Review NO; Basophils Absolute Auto 0 /uL (0-100); Basophils Percent Auto 0.1 % (0-2); Eosinophils Absolute Auto 100 /uL (0-450); Eosinophils Percent Auto 0.3 % (2-4); Hematocrit 36.6 % (41-53); Hemoglobin 12.2 g/dL (13.5-17.5); Lymphocytes Absolute Auto 1000 /uL (1100-4500); Lymphocytes Percent Auto 6.2 % (25-40); Mean Corpuscular HGB Conc 33.4 % (30-36); Mean Corpuscular Hemoglobin 30.7 PG (26-34); Mean Corpuscular Volume 92.1 fL (80-100); Monocytes Absolute Auto 900 /uL (0-900); Monocytes Percent Auto 6.1 % (3-14); Neutrophils Absolute Auto 13500 /uL (1500-7000); Neutrophils Percent Auto 87.3 % (50-75); Platelet Count 211 X10^3/uL (150-400); Red Blood Cell Count 3.97 X10^6/uL (4.5-5.9); Red Cell Distribution Width 13.7 % (11.6-14.8); White Blood Cell Count 15.4 X10^3/uL (4.5-11.0)
[2020-01-20 20:18] LABS: BUN Creatinine Ratio 30.3 (6-22); Blood Urea Nitrogen 23 mg/dL (9-20); Calcium 9.6 mg/dL (8.4-10.2); Carbon Dioxide 23 mmol/L (22-32); Chloride 102 mmol/L (98-107); Estimated Glomerular Filt Rate > 60.0 mL/min (>60); Glucose 171 mg/dL (80-110); HEMOLYSIS < 15 (0-50); Sodium 134 mmol/L (137-145)
--- NOTE | 2020-01-20 20:21 | ED.AMS ---
HPI - Altered Mental Status General Chief Complaint: Altered Mental Status Stated Complaint: Decreased LOC Time Seen by Provider: 01/20/20 19:40 Source: EMS and RN notes reviewed Mode of arrival: EMS Limitations: altered mental status History of Present Illness HPI narrative: 84M former smoker with history of dementia, prior stroke is a DNR with comfort measures and presents for evaluation of facial droop which nursing staff apparently noticed earlier today, and he's a bit less responsive than normal. He's had no injury nor fever, chills, chest pain or SOB. He apparently has no new medications or dietary change. There is no other complaint MD complaint: altered mental status Timing confirmed by: caregiver Severity: mild Consistency of symptoms: unknown Related Data Home Medications Medication Instructions Recorded Confirmed terazosin 10 mg PO QPM #0 11/02/16 10/28/17 calcium carbonate [Calcium 500] 250 mg PO BID 10/28/17 10/28/17 cholecalciferol (vitamin D3) 5,000 unit PO DAILY 10/28/17 10/28/17 [Vitamin D3] glipizide 5 mg PO BID 10/28/17 10/28/17 losartan 50 mg PO DAILY 10/28/17 10/28/17 metformin 500 mg PO BID 10/28/17 10/28/17 multivitamin 1 tab PO DAILY 10/28/17 10/28/17 sertraline 50 mg PO DAILY 10/28/17 10/28/17 methenamine hippurate 1 g PO DAILY 05/09/18 05/09/18 risperidone 0.25 mg 05/09/18 terazosin 10 mg PO DAILY 05/09/18 05/09/18 Previous Rx's Medication Instructions Recorded clopidogrel [Plavix] 75 mg PO DAILY #30 tab 10/31/17 dextrose 50 % in water (D50W) 0 gm IV PRN PRN #30 ml 10/31/17 docusate sodium 100 mg PO BID #60 cap 10/31/17 enoxaparin [Lovenox] 40 mg SUB-Q QHS #15 ml 10/31/17 ropinirole [Requip] 1.5 mg PO BEDTIME #45 tab 10/31/17 rosuvastatin [Crestor] 20 mg PO BEDTIME #30 tab 10/31/17 cephalexin [Keflex] 500 mg PO QID 7 Days #28 cap 01/20/20 Allergies Allergy/AdvReac Type Severity Reaction Status Date / Time shrimp Allergy Intermediate Rash Verified 12/15/17 19:15 ezetimibe [From Vytorin] Allergy Mild SENSITIVITY Verified 12/15/17 19:15 simvastatin Allergy Mild SENSITIVITY Verified 12/15/17 19:15 [id number] Reductase Allergy Verified 05/09/18 08:08 Inhibitor lactose AdvReac Intermediate Gastrointestinal Verified 12/15/17 19:15 Upset Review of Systems Review of Systems ROS Unobtainable: Unobtainable due to mental status/LOC Patient History Medical History Abnormality of gait and mobility (Acute) Atherosclerosis (Acute) BPH (benign prostatic hyperplasia) (Chronic) CAD (coronary artery disease) (Chronic) Cataract (Acute) Colonic polyp (Acute) Dementia (Acute) Depression (Chronic) Diabetes type 2, controlled (Chronic) Hearing difficulty of both ears (Acute) HTN (hypertension) (Chronic) Hyperlipidemia (Chronic) Nasal polyp (Acute) Restless leg syndrome (Acute) Rotator cuff dysfunction (Acute) TIA (transient ischemic attack) (Acute) Urinary incontinence (Acute) Surgical History History of total knee replacement (Chronic) Hx of appendectomy (Chronic) Hx of appendectomy (Acute) Hx of CABG (Chronic) Hx of rotator cuff surgery (Chronic) Social History household members: spouse Smoking Status: Former smoker alcohol intake: current Smoking Status: Former smoker alcohol intake frequency: holidays/special occasions only Substance Use Type: does not use Exam Narrative Exam Narrative: GENERAL: [84] year old patient appears stated age. Obviously chonically ill. Awake but not responsive. Guarding airway. HEAD: Atraumatic. Normocephalic. EYES: Pupils equal round and reactive. Extraocular motions intact. No scleral icterus. No injection or drainage. ENT: Nose without bleeding, purulent drainage. Throat without erythema, tonsillar hypertrophy or exudate. Airway patent. NECK: Trachea midline. Non tender CARDIOVASCULAR: Regular rate and rhythm without murmurs, gallops, or rubs. RESPIRATORY: Clear to auscultation. Breath sounds equal bilaterally. No wheezes, rales, or rhonchi. GASTROINTESTINAL: Abdomen soft, non-tender, nondistended. EXTREMITIES: No edema or joint tenderness. BACK: Nontender without deformity or crepitance. No flank tenderness. NEURO: No facial droop or obvious focal finding noted SKIN: No rash or erythema of visible areas Initial Vital Signs Initial Vital Signs: Vital Signs Temperature 98.3 F 01/20/20 19:35 Pulse Rate 63 01/20/20 19:35 Respiratory Rate 16 01/20/20 19:35 Blood Pressure 120/65 01/20/20 19:35 Pulse Oximetry 95 01/20/20 19:35 Course Course Course Narrative: call to PCP (Lokesh) to discuss ongoing care. She agrees that treating UTI and transfer back is appropriate and in line with his and family wishes Orders Ordered: ED Orders 01/20/20 19:57 Basic Metabolic Panel Stat Complete Blood Count AUTO DIFF Stat 01/20/20 20:33 XR chest 1V Stat 01/20/20 20:44 Urinalysis and Microscopic Stat Urine Culture Stat Urine Drug Screen, Rapid Stat Discontinued Medications Ceftriaxone Sodium/Dextrose (Rocephin) 1 gm in 50 mls @ 100 mls/hr IV NOW ONE Stop: 01/20/20 21:59 Last Infusion: 01/20/20 22:10 Dose: 0 mls/hr Documented by: Admin: 01/20/20 21:40 Dose: 100 mls/hr Documented by: YAMILETH Vital Signs Vital signs: Vital Signs - 8 hr 01/20/20 22:11 Pulse Rate 74 Respiratory Rate 16 Blood Pressure 106/73 Pulse Oximetry 97 MDM - Altered Mental Status Lab Data Result diagrams: 01/20/20 19:57 01/20/20 19:57 Labs: Lab Results 01/20/20 01/20/20 01/20/20 Range/Units 19:57 19:57 20:44 WBC 15.4 H (4.5-11.0) X10^3/uL RBC 3.97 L (4.5-5.9) X10^6/uL Hgb 12.2 L (13.5-17.5) g/dL Hct 36.6 L (41-53) % MCV 92.1 (80-100) fL MCH 30.7 (26-34) PG MCHC 33.4 (30-36) % RDW 13.7 (11.6-14.8) % Plt Count 211 (150-400) X10^3/uL Neut % (Auto) 87.3 H (50-75) % Lymph % (Auto) 6.2 L (25-40) % Riley % (Auto) 6.1 (3-14) % Eos % (Auto) 0.3 L (2-4) % Baso % (Auto) 0.1 (0-2) % Neut # (Auto) 77805 H (6171-1925) /uL Lymph # (Auto) 1000 L (3405-6937) /uL Riley # (Auto) 900 (0-900) /uL Eos # (Auto) 100 (0-450) /uL Baso # (Auto) 0 (0-100) /uL Sodium 134 L (137-145) mmol/L Potassium 4.0 (3.4-5.1) mmol/L Chloride 102 (98-107) mmol/L Carbon Dioxide 23 (22-32) mmol/L BUN 23 H (9-20) mg/dL Creatinine 0.76 (0.66-1.25) mg/dL Estimated GFR > 60.0 (>60) mL/min BUN/Creatinine Ratio 30.3 H (6-22) Glucose 171 H (80-110) mg/dL Calcium 9.6 (8.4-10.2) mg/dL Urine Color Yellow Urine Appearance Cloudy Urine pH 5.5 (4.5-8.0) Ur Specific [place] 1.025 (1.000-1.035) Urine Protein 3+ H (Negative) Urine Glucose (UA) Negative (Negative) g/dL Urine Ketones Trace H (NEGATIVE) Urine Occult Blood 3+ H (Negative) Urine Nitrate Positive (Negative) Urine Bilirubin Negative (NEGATIVE) Urine Urobilinogen 1.0 (0.2) E.U./dL Ur Leukocyte Esterase 2+ H (NEGATIVE) Urine RBC 30-100/hpf H (0-5/HPF) Urine WBC >100/hpf H (0-5/HPF) Ur Squamous Epith Cells 1-5 /hpf (0-5/HPF) Ur Transition Epith Cell 1-5/hpf (0-5/HPF) Ur Renal Epithelial Cell 1-5/hpf H (0-1/HPF) Calcium Oxalate Crystal Moderate H Urine Bacteria Few (2-10) H (None) Ur Culture Indicated? Specimen cultured U Opiates 300ng/mL cut (Negative) Ur Oxycodone Screen (Negative) Urine Methadone Screen (Negative) Ur Barbiturates Screen (Negative) U Tricyclic Antidepress (Negative) Ur Phencyclidine Scrn (Negative) Ur Amphetamines Screen (Negative) U Methamphetamines Scrn (Negative) Ur MDMA Scrn (Ecstasy) (Negative) U Benzodiazepines Scrn (Negative) Urine Cocaine Screen (Negative) U Marijuana (THC) Screen (Negative) 01/20/20 Range/Units 20:44 WBC (4.5-11.0) X10^3/uL RBC (4.5-5.9) X10^6/uL Hgb (13.5-17.5) g/dL Hct (41-53) % MCV (80-100) fL MCH (26-34) PG MCHC (30-36) % RDW (11.6-14.8) % Plt Count (150-400) X10^3/uL Neut % (Auto) (50-75) % Lymph % (Auto) (25-40) % Riley % (Auto) (3-14) % Eos % (Auto) (2-4) % Baso % (Auto) (0-2) % Neut # (Auto) (6100-4733) /uL Lymph # (Auto) (5856-8151) /uL Riley # (Auto) (0-900) /uL Eos # (Auto) (0-450) /uL Baso # (Auto) (0-100) /uL Sodium (137-145) mmol/L Potassium (3.4-5.1) mmol/L Chloride (98-107) mmol/L Carbon Dioxide (22-32) mmol/L BUN (9-20) mg/dL Creatinine (0.66-1.25) mg/dL Estimated GFR (>60) mL/min BUN/Creatinine Ratio (6-22) Glucose (80-110) mg/dL Calcium (8.4-10.2) mg/dL Urine Color Urine Appearance Urine pH (4.5-8.0) Ur Specific [place] (1.000-1.035) Urine Protein (Negative) Urine Glucose (UA) (Negative) g/dL Urine Ketones (NEGATIVE) Urine Occult Blood (Negative) Urine Nitrate (Negative) Urine Bilirubin (NEGATIVE) Urine Urobilinogen (0.2) E.U./dL Ur Leukocyte Esterase (NEGATIVE) Urine RBC (0-5/HPF) Urine WBC (0-5/HPF) Ur Squamous Epith Cells (0-5/HPF) Ur Transition Epith Cell (0-5/HPF) Ur Renal Epithelial Cell (0-1/HPF) Calcium Oxalate Crystal Urine Bacteria (None) Ur Culture Indicated? U Opiates 300ng/mL cut Negative (Negative) Ur Oxycodone Screen Negative (Negative) Urine Methadone Screen Negative (Negative) Ur Barbiturates Screen Negative (Negative) U Tricyclic Antidepress Negative (Negative) Ur Phencyclidine Scrn Negative (Negative) Ur Amphetamines Screen Negative (Negative) U Methamphetamines Scrn Negative (Negative) Ur MDMA Scrn (Ecstasy) Negative (Negative) U Benzodiazepines Scrn Negative (Negative) Urine Cocaine Screen Negative (Negative) U Marijuana (THC) Screen Negative (Negative) Imaging Data CT scan - head: Radiologist's Impression: [address] [address] [address] Scan Report Signed Patient: Sherman Gauthier JMR#: [id number] : 7Acct:[id number] Age/Sex: 84 / MDate of Service: 01/20/20 Loc: ED Accession Number: [id number] Procedure: CT head/brain wo con Ordering Provider: Navi Clay D.O. PROCEDURE: CT HEAD/BRAIN WO CON INDICATIONS: altered TECHNIQUE: Noncontrast 4.5 mm thick angled axial sections acquired from the foramen magnum to the vertex, with coronal and sagittal reformats. For radiation dose reduction, the following was used: automated exposure control, adjustment of mA and/or kV according to patient size. COMPARISON: [facility], CT, CT HEAD/BRAIN WO CON, 12/15/2017, 19:07. FINDINGS: Image quality: Excellent. CSF spaces: Basal cisterns are patent. No extra-axial fluid collections. The ventricles are symmetric in size and shape. Brain: No intracranial bleeds or masses. There is cerebral volume loss for age, with resultant ventricular and sulcal prominence. There are periventricular and deep white matter chronic small vessel ischemic changes. There is intracranial internal carotid artery atherosclerosis. Skull and face: Calvarium and visualized facial bones appear intact, without suspicious lesions. Sinuses: Visualized sinuses and mastoids are clear. IMPRESSION: No acute intracranial process. Dictated by: Mayco López M.D. on 01/20/2020 at 20:33 Approved by: Mayco López M.D. on 01/20/2020 at 20:35 Discharge Plan Departure Patient Disposition: Home Clinical Impression: Acute UTI Discharge Date/Time: 01/20/20 22:11 Instructions: DI for Urinary Tract Infection (UTI) Activity Restrictions/Additional Instructions: *You have been diagnosed with [acute urinary tract infection with a mild metabolic encephalopathy] *What to do: *Take medications as directed *Follow up with your primary care provider in 2-3 days, call for an appointment. Let them know you were seen in the Emergency Department and that we ask that you be seen in follow up *Return to ER if you should have any new, worsening or concerning symptoms Prescriptions: New cephalexin [Keflex] 500 mg capsule 500 mg PO QID 7 Days Qty: 28 RF: 0 No Action terazosin 10 MG capsule 10 mg PO QPM Qty: 0 RF: 0 multivitamin Tablet 1 tab PO DAILY RF: 0 losartan 50 mg Tablet 50 mg PO DAILY RF: 0 metformin 500 mg Tablet 500 mg PO BID RF: 0 calcium carbonate [Calcium 500] 500 mg calcium (1,250 mg) Tablet 250 mg PO BID RF: 0 sertraline 50 mg Tablet 50 mg PO DAILY RF: 0 glipizide 5 mg Tablet 5 mg PO BID RF: 0 cholecalciferol (vitamin D3) [Vitamin D3] 5,000 unit Tablet 5,000 unit PO DAILY RF: 0 docusate sodium 100 mg Capsule 100 mg PO BID Qty: 60 RF: 0 enoxaparin [Lovenox] 40 mg/0.4 mL Syringe 40 mg Sub-Q QHS Qty: 15 RF: 0 dextrose 50 % in water (D50W) Syringe 0 gm IV PRN PRN (Reason: Blood Sugar - Low) Qty: 30 RF: 0 rosuvastatin [Crestor] 10 mg Tablet 20 mg PO BEDTIME Qty: 30 RF: 0 ropinirole [Requip] 1 mg Tablet 1.5 mg PO BEDTIME Qty: 45 RF: 0 clopidogrel [Plavix] 75 mg Tablet 75 mg PO DAILY Qty: 30 RF: 0 methenamine hippurate 1 g PO DAILY RF: 0 risperidone 0.25 mg RF: 0 terazosin 10 mg PO DAILY RF: 0 Referrals: Naina Campa MD [Primary Care Provider] -
[2020-01-20 20:29] VITALS: BP 117/58; PULSE 78; RESP 24; O2SAT 92
--- NOTE | 2020-01-20 20:33 | DI.RAD.S_ITS ---
PROCEDURE: XR CHEST 1V INDICATIONS: stroke evaluation TECHNIQUE: One view of the chest was acquired. COMPARISON: [facility], CR, XR CHEST 2V, 12/27/2017, 15:13. FINDINGS: Surgical changes and devices: Sternotomy wires and CABG clips.. Lungs and pleura: Lungs are clear. No pleural effusions or pneumothorax. Mediastinum: Mediastinal contours appear normal. Heart size is normal. Bones and chest wall: No suspicious bony lesions. Overlying soft tissues appear unremarkable. IMPRESSION: No acute disease Dictated by: Mayco López M.D. on 01/20/2020 at 21:13 Approved by: Mayco López M.D. on 01/20/2020 at 21:13
[2020-01-20 21:03] LABS: Appearance Urine UA CLOUDY; Bilirubin Urine UA NEGATIVE (NEGATIVE); Color Urine UA YELLOW; Glucose Urine UA NEGATIVE (Negative); Ketones Urine UA TRACE (NEGATIVE); Leukocyte Esterase Urine UA 2+ (NEGATIVE); Nitrite Urine UA POSITIVE (Negative); Occult Blood Urine UA 3+ (Negative); Protein Urine UA 3+ (Negative); Specific Gravity Urine UA 1.025 (1.000-1.035); pH Urine UA 5.5 (4.5-8.0)
[2020-01-20 21:10] LABS: UR Morphine/Opiate cutoff 300 Negative (Negative); Ur Creatinine Normal (Normal); Ur Specific Gravity Normal (Normal); Urine Amphetamines Negative (Negative); Urine Barbiturates Negative (Negative); Urine Benzodiazepines Negative (Negative); Urine Cocaine Negative (Negative); Urine MDMA Negative (Negative); Urine Methadone Negative (Negative); Urine Methamphetamines Negative (Negative); Urine Oxycodone Negative (Negative); Urine Phencyclidine Negative (Negative); Urine Tetrahydrocannabinol Negative (Negative); Urine Tricyclic Antidepressant Negative (Negative); Urine pH Normal (Normal)
[2020-01-20 21:19] LABS: Bacteria Urine Few (2-10); Calcium Oxalate Crystals Urine Moderate; Culture Indicated Urine Specimen Cultured; RBC Urine 30-100/HPF (0-5/HPF); Renal Epithelial Cells Urine 1-5/HPF (0-1/HPF); Squamous Epithelial Cell Urine 1-5 /HPF (0-5/HPF); Transitional Epi Cells Urine 1-5/HPF (0-5/HPF); WBC Urine >100/HPF (0-5/HPF)
[2020-01-20] MEDS: CEFTRIAXONE 1 GM/50 ML FROZ.PIGGY IV (21:40)
[2020-01-20 22:11] VITALS: BP 106/73; PULSE 74; RESP 16; O2SAT 97
== END 2020-01-20 22:11 | disposition home or self-care (01) ==
PROVIDERS: Emergency Provider Emergency Medicine; PCP Internal Medicine
DX: N39.0 Urinary tract infection, site not specified (principal); R41.82 Altered mental status, unspecified; R53.83 Other fatigue
CPT/HCPCS: 36415; 70450; 71045; 80048; 80053; 80305; 81001; 85025; 87077; 87086; 99284

== ENCOUNTER 2020-01-21 20:01 | Inpatient (IN) | payer MEDICARE, OTHER, SELFPAY ==
[2017-10-28 14:45] VITALS: BMI 28.0
--- NOTE | 2020-01-21 20:02 | DI.RAD.S_ITS ---
PROCEDURE: XR CHEST 1V INDICATIONS: lethargic TECHNIQUE: One view of the chest was acquired. COMPARISON: [facility], CR, XR CHEST 2V, 12/27/2017, 15:13. [facility], CR, XR CHEST 1V, 01/20/2020, 20:34. FINDINGS: Surgical changes and devices: Sternotomy and CABG. Lungs and pleura: Chronic right hemidiaphragm elevation. No focal consolidation. No large pleural effusion or pneumothorax. Mediastinum: Mediastinal contours appear normal. Heart size is normal. Bones and chest wall: No suspicious bony lesions. Overlying soft tissues appear unremarkable. IMPRESSION: No acute cardiopulmonary disease. Dictated by: Brianna Hurt M.D. on 01/21/2020 at 20:30 Approved by: Brianna Hurt M.D. on 01/21/2020 at 20:31
--- NOTE | 2020-01-21 20:02 | DI.CT.S_ITS ---
PROCEDURE: CT HEAD/BRAIN WO CON INDICATIONS: worsening left side weakness, mental status change TECHNIQUE: Noncontrast 4.5 mm thick angled axial sections acquired from the foramen magnum to the vertex, with coronal and sagittal reformats. For radiation dose reduction, the following was used: automated exposure control, adjustment of mA and/or kV according to patient size. COMPARISON: [facility], MR, MR STROKE, 10/28/2017, 13:07. [facility], CT, CT HEAD/BRAIN WO CON, 01/20/2020, 20:10. FINDINGS: Image quality: Excellent. CSF spaces: Basal cisterns are patent. No extra-axial fluid collections. The ventricles are symmetric in size and shape. Brain: No intracranial bleeds or masses. There is [id number] cerebral volume loss for age, with resultant ventricular and sulcal prominence. There are severe periventricular and deep white matter chronic small vessel ischemic changes. There is intracranial internal carotid artery atherosclerosis. Skull and face: Calvarium and visualized facial bones appear intact, without suspicious lesions. Sinuses: Visualized sinuses and mastoids are clear. IMPRESSION: 1. No acute intracranial abnormalities. 2. Cerebral volume loss and chronic microvascular ischemic changes. Dictated by: Brianna Hurt M.D. on 01/21/2020 at 20:31 Approved by: Brianna Hurt M.D. on 01/21/2020 at 20:34
--- NOTE | 2020-01-21 20:04 | ED.AMS ---
HPI - Altered Mental Status General Chief Complaint: Altered Mental Status Stated Complaint: Lethargic Time Seen by Provider: 01/21/20 20:01 Source: family and EMS Mode of arrival: EMS Limitations: altered mental status History of Present Illness HPI narrative: 84M former smoker with dementia, prior stroke is back by EMS at request of nursing staff and family. He was seen yesterday and treated for UTI and evaluated for possible stroke due to decreased mentation. He was given Rocephin, some fluids and sent home after discussion with PCP. He has not had any oral hydration or food today and has not had his antibiotics. He is less responsive than normal. There is no report of N/V/D, fever or other. MD complaint: altered mental status and confusion Onset (ago): day(s) Severity: moderate Consistency of symptoms: getting worse Related Data Home Medications Medication Instructions Recorded Confirmed terazosin 10 mg PO QPM #0 11/02/16 10/28/17 calcium carbonate [Calcium 500] 250 mg PO BID 10/28/17 10/28/17 cholecalciferol (vitamin D3) 5,000 unit PO DAILY 10/28/17 10/28/17 [Vitamin D3] glipizide 5 mg PO BID 10/28/17 10/28/17 losartan 50 mg PO DAILY 10/28/17 10/28/17 metformin 500 mg PO BID 10/28/17 10/28/17 multivitamin 1 tab PO DAILY 10/28/17 10/28/17 sertraline 50 mg PO DAILY 10/28/17 10/28/17 methenamine hippurate 1 g PO DAILY 05/09/18 05/09/18 risperidone 0.25 mg 05/09/18 terazosin 10 mg PO DAILY 05/09/18 05/09/18 Previous Rx's Medication Instructions Recorded clopidogrel [Plavix] 75 mg PO DAILY #30 tab 10/31/17 dextrose 50 % in water (D50W) 0 gm IV PRN PRN #30 ml 10/31/17 docusate sodium 100 mg PO BID #60 cap 10/31/17 enoxaparin [Lovenox] 40 mg SUB-Q QHS #15 ml 10/31/17 ropinirole [Requip] 1.5 mg PO BEDTIME #45 tab 10/31/17 rosuvastatin [Crestor] 20 mg PO BEDTIME #30 tab 10/31/17 cephalexin [Keflex] 500 mg PO QID 7 Days #28 cap 01/20/20 Allergies Allergy/AdvReac Type Severity Reaction Status Date / Time shrimp Allergy Intermediate Rash Verified 12/15/17 19:15 ezetimibe [From Vytorin] Allergy Mild SENSITIVITY Verified 12/15/17 19:15 simvastatin Allergy Mild SENSITIVITY Verified 12/15/17 19:15 Hqwkcsu-Hns-Kzn Reductase Allergy Verified 05/09/18 08:08 Inhibitor lactose AdvReac Intermediate Gastrointestinal Verified 12/15/17 19:15 Upset Review of Systems Review of Systems Narrative: ROS is per nursing staff and family Constitutional Constitutional: Denies chills, Reports fatigue, Denies fever(s), Denies frequent falls, Reports lethargy and Reports weakness Eyes Eyes: Denies change in vision, Denies eye discharge, Denies irritation and Denies loss of vision ENT Ears, Nose, Mouth, and Throat: Denies change in voice, Denies dizziness, Denies neck pain, Denies sore throat and Denies throat swelling Cardiovascular Cardiovascular: Denies chest pain, Denies irregular heart rhythm, Denies lightheadedness, Denies palpitations, Denies dyspnea, Denies dyspnea on exertion and Denies orthopnea Respiratory Respiratory: Denies cough, Denies dyspnea, Denies dyspnea on exertion and Denies wheezing Gastrointestinal Gastrointestinal: Denies abdominal pain, Denies change in bowel habits, Denies diarrhea, Denies nausea and Denies vomiting Musculoskeletal Musculoskeletal: Denies neck pain and Denies numbness Integumentary/Breasts Skin/Breast: Denies pruritus, Denies erythema, Denies rash and Denies wounds Neurologic Neurologic: Denies behavioral changes, Denies confusion, Denies dizziness, Denies frequent falls, Denies loss of vision, Denies numbness and Reports weakness Psychiatric Psychiatric: Denies anxiety, Denies behavioral changes, Denies confusion, Denies depression, Denies homicidal ideation and Denies suicidal ideation Endocrine Endocrine: Reports fatigue, Denies flushing and Denies palpitations Hematologic/Lymphatic Hematologic/Lymphatic: Denies easy bruising Allergic/Immunologic Allergic/Immunologic: Denies urticaria, Denies throat swelling and Denies wheezing Patient History Medical History Abnormality of gait and mobility (Acute) Atherosclerosis (Acute) BPH (benign prostatic hyperplasia) (Chronic) CAD (coronary artery disease) (Chronic) Cataract (Acute) Colonic polyp (Acute) Dementia (Acute) Depression (Chronic) Diabetes type 2, controlled (Chronic) Hearing difficulty of both ears (Acute) HTN (hypertension) (Chronic) Hyperlipidemia (Chronic) Nasal polyp (Acute) Restless leg syndrome (Acute) Rotator cuff dysfunction (Acute) TIA (transient ischemic attack) (Acute) Urinary incontinence (Acute) Surgical History History of total knee replacement (Chronic) Hx of appendectomy (Chronic) Hx of appendectomy (Acute) Hx of CABG (Chronic) Hx of rotator cuff surgery (Chronic) Family History (Updated 01/22/20 @ 00:00 by NELSNO Atwood) Father Heart disease Mother Asthma Social History household members: spouse Smoking Status: Former smoker alcohol intake: current Smoking Status: Former smoker alcohol intake frequency: holidays/special occasions only Substance Use Type: does not use Exam Narrative Exam Narrative: GENERAL: [84] year old patient appears stated age. He is obviously chronically ill, poorly responsive, worse than yesterday. Guarding his airway. HEAD: Atraumatic. Normocephalic. EYES: Pupils equal round and reactive. Extraocular motions intact. No scleral icterus. No injection or drainage. ENT: Dry mucous membranes. Mouth largely being held agape. Nose without bleeding, purulent drainage. Throat without erythema, tonsillar hypertrophy or exudate. Airway patent. NECK: Trachea midline. Non tender CARDIOVASCULAR: Regular rate and rhythm without murmurs, gallops, or rubs. RESPIRATORY: Clear to auscultation. Breath sounds equal bilaterally. No wheezes, rales, or rhonchi. GASTROINTESTINAL: Abdomen soft, non-tender, nondistended. EXTREMITIES: No edema or joint tenderness. BACK: Nontender without deformity or crepitance. No flank tenderness. SKIN: Poor turgor. No rash or erythema of visible areas Initial Vital Signs Initial Vital Signs: Vital Signs Temperature 98.8 F 01/21/20 20:05 Pulse Rate 71 01/21/20 20:05 Respiratory Rate 16 01/21/20 20:05 Blood Pressure 123/70 01/21/20 20:05 Pulse Oximetry 98 01/21/20 20:05 Course Course Course Narrative: patient with UTI failed outpatient therapy. No taking medications, food, or water. He is clinically dehydrated and requires hospitalization to treat UTI, rehydrate. Orders Ordered: ED Orders 01/21/20 20:02 CT head/brain wo con Stat XR chest 1V Stat 01/21/20 20:21 Complete Blood Count AUTO DIFF Stat Comprehensive Metabolic Panel Stat Lactate (Lactic Acid) Stat Magnesium Stat NT-proBNP (BNP-Adult 18+) Stat Procalcitonin Stat Troponin & CK Cardiac Panel Stat 01/21/20 20:36 EKG-12 Lead Stat 01/21/20 20:50 Blood Culture Stat Acetaminophen (Tylenol) 650 mg PO Q6HR PRN PRN Reason: Fever/Mild Pain (1-3) Acetaminophen (Tylenol) 650 mg AR Q6H PRN PRN Reason: FEVER OR PAIN 1-3 Clopidogrel Bisulfate (Plavix) 75 mg PO DAILY [facility] Dextrose (D50w) 25 gm IV PRN PRN; Protocol PRN Reason: Hypoglycemia Docusate Sodium (Colace) 100 mg PO BID SEB Enoxaparin Sodium (Lovenox) 40 mg SUBCUT QHS [facility] Sodium Chloride (Normal Saline 0.9%) 1,000 mls @ 75 mls/hr IV CONT SEB Last Admin: 01/21/20 23:27 Dose: 75 mls/hr Documented by: MARY Magnesium Sulfate (Magnesium Sulfate) 2 gm in 50 mls @ 25 mls/hr IV NOW ONE Stop: 01/22/20 01:48 Ceftriaxone Sodium/Dextrose (Rocephin) 1 gm in 50 mls @ 100 mls/hr IV Q24H SEB Stop: 01/26/20 20:59 Insulin Aspart (Novolog Flexpen) 0 unit SUBCUT ACHS [facility]; Protocol Ondansetron HCl (Zofran) 4 mg IV Q8HR PRN PRN Reason: Nausea And Vomiting Ropinirole HCl (Requip) 1.5 mg PO BEDTIME SEB Sertraline HCl (Zoloft) 50 mg PO DAILY [facility] Terazosin HCl (Hytrin) 10 mg PO QPM [facility] Discontinued Medications Heparin Sodium (Porcine) (Heparin) 5,000 unit SUBCUT BID [facility] Sodium Chloride (Normal Saline 0.9%) 1,000 mls @ 1,000 mls/hr IV BOLUS ONE Stop: 01/21/20 21:00 Last Infusion: 01/21/20 21:59 Dose: 0 mls/hr Documented by: Admin: 01/21/20 20:40 Dose: 1,000 mls/hr Documented by: SUSANNE Ceftriaxone Sodium/Dextrose (Rocephin) 1 gm in 50 mls @ 100 mls/hr IV NOW ONE Stop: 01/21/20 22:21 Last Admin: 01/21/20 22:05 Dose: 100 mls/hr Documented by: SUSANNE Losartan Potassium (Cozaar) 50 mg PO DAILY [facility] Rosuvastatin Calcium (Crestor) 20 mg PO BEDTIME SEB Vital Signs Vital signs: Vital Signs - 8 hr 01/21/20 20:05 01/21/20 20:06 01/21/20 20:31 Temperature 98.8 F Pulse Rate 71 70 75 Respiratory Rate 16 Blood Pressure 123/70 128/68 Pulse Oximetry 98 94 97 MDM - Altered Mental Status Lab Data Result diagrams: 01/21/20 20:21 01/21/20 20:21 Labs: Lab Results 01/21/20 01/21/20 01/21/20 Range/Units 20:21 20:21 20:21 WBC 9.4 (4.5-11.0) X10^3/uL RBC 3.85 L (4.5-5.9) X10^6/uL Hgb 12.0 L (13.5-17.5) g/dL Hct 35.4 L (41-53) % MCV 92.0 (80-100) fL MCH 31.1 (26-34) PG MCHC 33.8 (30-36) % RDW 13.9 (11.6-14.8) % Plt Count 215 (150-400) X10^3/uL Neut % (Auto) 81.6 H (50-75) % Lymph % (Auto) 10.2 L (25-40) % Gray % (Auto) 7.2 (3-14) % Eos % (Auto) 0.7 L (2-4) % Baso % (Auto) 0.3 (0-2) % Neut # (Auto) 7700 H (6492-9967) /uL Lymph # (Auto) 1000 L (7478-2228) /uL Gray # (Auto) 700 (0-900) /uL Eos # (Auto) 100 (0-450) /uL Baso # (Auto) 0 (0-100) /uL Sodium 136 L (137-145) mmol/L Potassium 4.0 (3.4-5.1) mmol/L Chloride 104 (98-107) mmol/L Carbon Dioxide 25 (22-32) mmol/L BUN 21 H (9-20) mg/dL Creatinine 0.69 (0.66-1.25) mg/dL Estimated GFR > 60.0 (>60) mL/min BUN/Creatinine Ratio 30.4 H (6-22) Glucose 135 H (80-110) mg/dL Lactate (0.7-2.1) mmol/L Calcium 9.7 (8.4-10.2) mg/dL Magnesium 1.6 (1.6-2.3) mg/dL Total Bilirubin 1.4 H (0.2-1.3) mg/dL AST 21 (17-59) IU/L ALT 18 (<50) IU/L Alkaline Phosphatase 55 (38-126) U/L Total Creatine Kinase 61 (55-170) U/L CK-MB (CK-2) TNP CK-MB (CK-2) Rel Index TNP Troponin I 0.036 H (0.01-0.034) ng/mL NT-Pro-B Natriuret Pep 907 H (<450) pg/mL Total Protein 6.7 (6.3-8.2) g/dL Albumin 3.8 (3.5-5.0) g/dL Globulin 2.9 (1.7-4.1) g/dL Albumin/Globulin Ratio 1.3 (1.0-2.8) Procalcitonin 0.07 (<0.5) ng/mL COVID-19 PCR (Negative) 01/21/20 01/21/20 Range/Units 20:21 22:00 WBC (4.5-11.0) X10^3/uL RBC (4.5-5.9) X10^6/uL Hgb (13.5-17.5) g/dL Hct (41-53) % MCV (80-100) fL MCH (26-34) PG MCHC (30-36) % RDW (11.6-14.8) % Plt Count (150-400) X10^3/uL Neut % (Auto) (50-75) % Lymph % (Auto) (25-40) % Gray % (Auto) (3-14) % Eos % (Auto) (2-4) % Baso % (Auto) (0-2) % Neut # (Auto) (3587-0448) /uL Lymph # (Auto) (0078-8935) /uL Gray # (Auto) (0-900) /uL Eos # (Auto) (0-450) /uL Baso # (Auto) (0-100) /uL Sodium (137-145) mmol/L Potassium (3.4-5.1) mmol/L Chloride (98-107) mmol/L Carbon Dioxide (22-32) mmol/L BUN (9-20) mg/dL Creatinine (0.66-1.25) mg/dL Estimated GFR (>60) mL/min BUN/Creatinine Ratio (6-22) Glucose (80-110) mg/dL Lactate 0.8 (0.7-2.1) mmol/L Calcium (8.4-10.2) mg/dL Magnesium (1.6-2.3) mg/dL Total Bilirubin (0.2-1.3) mg/dL AST (17-59) IU/L ALT (<50) IU/L Alkaline Phosphatase (38-126) U/L Total Creatine Kinase (55-170) U/L CK-MB (CK-2) CK-MB (CK-2) Rel Index Troponin I (0.01-0.034) ng/mL NT-Pro-B Natriuret Pep (<450) pg/mL Total Protein (6.3-8.2) g/dL Albumin (3.5-5.0) g/dL Globulin (1.7-4.1) g/dL Albumin/Globulin Ratio (1.0-2.8) Procalcitonin (<0.5) ng/mL COVID-19 PCR Negative (Negative) Imaging Data CT scan - head: Radiologist's Impression: Sherman Gauthier 84 M [address] [address] [address] Scan Report Signed Patient: Sherman Gauthier JMR#: [id number] : 1935Acct:[id number] Age/Sex: 84 / MDate of Service: 01/21/20 Loc: ED Accession Number: [id number] Procedure: CT head/brain wo con Ordering Provider: Navi Clay D.O. PROCEDURE: CT HEAD/BRAIN WO CON INDICATIONS: worsening left side weakness, mental status change TECHNIQUE: Noncontrast 4.5 mm thick angled axial sections acquired from the foramen magnum to the vertex, with coronal and sagittal reformats. For radiation dose reduction, the following was used: automated exposure control, adjustment of mA and/or kV according to patient size. COMPARISON: [facility], MR, MR STROKE, 10/28/2017, 13:07. [facility], CT, CT HEAD/BRAIN WO CON, 01/20/2020, 20:10. FINDINGS: Image quality: Excellent. CSF spaces: Basal cisterns are patent. No extra-axial fluid collections. The ventricles are symmetric in size and shape. Brain: No intracranial bleeds or masses. There is atmcurto-mt-ezyhky cerebral volume loss for age, with resultant ventricular and sulcal prominence. There are severe periventricular and deep white matter chronic small vessel ischemic changes. There is intracranial internal carotid artery atherosclerosis. Skull and face: Calvarium and visualized facial bones appear intact, without suspicious lesions. Sinuses: Visualized sinuses and mastoids are clear. IMPRESSION: 1. No acute intracranial abnormalities. 2. Cerebral volume loss and chronic microvascular ischemic changes. Dictated by: Brianna Hurt M.D. on 01/21/2020 at 20:31 Approved by: Brianna Hurt M.D. on 01/21/2020 at 20:34 Chest x-ray: Radiologist's Impression: Chart Viewer Diagnostics DATE TYPE STATUS REF RANGE/AUTHOR Hx 01/21/20 20:02 Dean Hurt 01/21/20 20:02 Dean Hurt 01/20/20 20:33 Mayco López 01/20/20 19:44 Mayco López 04/21/18 03:55 Mayco López 03/03/18 23:47 Oswaldo,Reny 03/03/18 23:46 Reny Chacon 12/27/17 00:00 Yahir Rosenbaum 12/15/17 19:38 Theresa Eckert 12/15/17 19:08 Theresa Eckert 12/15/17 19:08 Theresa Eckert 10/28/17 10:12 10/28/17 08:27 RituChristopher 10/28/17 00:00 Kamari Lujan 10/28/17 00:00 Christopher Chaney Charles J 84, M0 1935 [facility] ER, Main ED R10 72.575kg Altered Mental Status Search Chart No Data to Display Rash SENSITIVITY SENSITIVITY Gastrointestinal Upset ONSET Today 20:05 Sherman Gauthier 84 M [address] [address] XRay Report Signed Patient: Sherman Gauthier JMR#: [id number] : 1935cct:[id number] Age/Sex: 84 / MDate of Service: 01/21/20 Loc: ED Accession Number: [id number] Procedure: XR chest 1V Ordering Provider: Navi Clay D.O. PROCEDURE: XR CHEST 1V INDICATIONS: lethargic TECHNIQUE: One view of the chest was acquired. COMPARISON: [facility], CR, XR CHEST 2V, 12/27/2017, 15:13. [facility], CR, XR CHEST 1V, 01/20/2020, 20:34. FINDINGS: Surgical changes and devices: Sternotomy and CABG. Lungs and pleura: Chronic right hemidiaphragm elevation. No focal consolidation. No large pleural effusion or pneumothorax. Mediastinum: Mediastinal contours appear normal. Heart size is normal. Bones and chest wall: No suspicious bony lesions. Overlying soft tissues appear unremarkable. IMPRESSION: No acute cardiopulmonary disease. Dictated by: Brianna Hurt M.D. on 01/21/2020 at 20:30 Approved by: Brianna Hurt M.D. on 01/21/2020 at 20:31 Discharge Plan Departure Patient Disposition: Admitted as Observation Clinical Impression: Acute UTI, Acute dehydration Discharge Date/Time: 01/21/20 22:30 Referrals: Naina Campa MD [Primary Care Provider] - Admit Date/Time: 01/21/20 22:12 Admit Provider: Trever Sinclair
[2020-01-21 20:05] VITALS: BP 123/70; PULSE 71; RESP 16; TEMP 37.1; O2SAT 98
[2020-01-21 20:06] VITALS: PULSE 70; O2SAT 94
--- NOTE | 2020-01-21 20:12 | PC.NURSE ---
patient baseline dementia. Care facility reports decrease mentation, lethargic. Patient responsive to painful stimulation but not conversing.
--- NOTE | 2020-01-21 20:14 | PC.NURSE ---
Patient diagnosed with UTI and treated in ER yesterday. Nursing facility reports patient has not received prescribed abx as they have not arrived at facility.
[2020-01-21 20:30] LABS: Add Manual Diff / Slide Review NO; Basophils Absolute Auto 0 /uL (0-100); Basophils Percent Auto 0.3 % (0-2); Eosinophils Absolute Auto 100 /uL (0-450); Eosinophils Percent Auto 0.7 % (2-4); Hematocrit 35.4 % (41-53); Lymphocytes Absolute Auto 1000 /uL (1100-4500); Lymphocytes Percent Auto 10.2 % (25-40); Mean Corpuscular HGB Conc 33.8 % (30-36); Mean Corpuscular Hemoglobin 31.1 PG (26-34); Monocytes Absolute Auto 700 /uL (0-900); Monocytes Percent Auto 7.2 % (3-14); Neutrophils Absolute Auto 7700 /uL (1500-7000); Neutrophils Percent Auto 81.6 % (50-75); Platelet Count 215 X10^3/uL (150-400); Red Blood Cell Count 3.85 X10^6/uL (4.5-5.9); Red Cell Distribution Width 13.9 % (11.6-14.8); White Blood Cell Count 9.4 X10^3/uL (4.5-11.0)
[2020-01-21 20:31] VITALS: BP 128/68; PULSE 75; O2SAT 97
[2020-01-21] MEDS: SODIUM CHLORIDE 0.9% 1,000 ML 1000 ML IV (20:40)
[2020-01-21 20:45] LABS: Lactate (Lactic Acid) 0.8 mmol/L (0.7-2.1)
[2020-01-21 20:47] LABS: Alanine Aminotransferase 18 IU/L (<50); Albumin 3.8 g/dL (3.5-5.0); Albumin Globulin Ratio 1.3 (1.0-2.8); Alkaline Phosphatase 55 U/L (38-126); Aspartate Aminotransferase 21 IU/L (17-59); BUN Creatinine Ratio 30.4 (6-22); Bilirubin Total 1.4 mg/dL (0.2-1.3); Blood Urea Nitrogen 21 mg/dL (9-20); Calcium 9.7 mg/dL (8.4-10.2); Carbon Dioxide 25 mmol/L (22-32); Chloride 104 mmol/L (98-107); Creatine Kinase 61 U/L (55-170); Estimated Glomerular Filt Rate > 60.0 mL/min (>60); Globulin 2.9 g/dL (1.7-4.1); Glucose 135 mg/dL (80-110); HEMOLYSIS < 15 (0-50); Magnesium 1.6 mg/dL (1.6-2.3); Sodium 136 mmol/L (137-145); Total Protein 6.7 g/dL (6.3-8.2)
[2020-01-21 20:58] LABS: NT-proBNP (BNP-Adult 18+) 907 pg/mL (<450); Troponin I 0.036 ng/mL (0.01-0.034)
[2020-01-21 21:14] LABS: Procalcitonin 0.07 ng/mL (<0.5)
[2020-01-21] MEDS: CEFTRIAXONE 1 GM/50 ML FROZ.PIGGY IV (22:05)
[2020-01-21 22:31] VITALS: BP 126/61; PULSE 75; RESP 12; O2SAT 98
--- NOTE | 2020-01-21 22:55 | PC.NURSE ---
Pt arrived from ED to RM 206 @ 3427. Pt drowsey, increadsed lethargy today. HL intact. Pt & family oriented to room & call system. Call light w/in reach, bed alarm on for pt safety.
[2020-01-21 22:57] LABS: COVID19 -Nasal RAPID Negative (Negative)
[2020-01-21 23:00] VITALS: BP 137/72; PULSE 69; RESP 19; TEMP 36.5; O2SAT 95
--- NOTE | 2020-01-21 23:03 | P.HP_ITS ---
History of Present Illness History of Present Illness Date Patient Seen: 01/21/20 Time Patient Seen: 23:13 Chief complaint: Lethargic Narrative: Mr. Sherman Rowley is an 84-year-old male with history significant for coronary artery disease, atrial fibrillation, CVA, type 2 diabetes, frontal temporal dementia, hypertension, hyperlipidemia, BPH and significant difficulty hearing who returns to the ER for worsening altered mental status. The patient was seen in the emergency room yesterday for altered mental status that per family has been deteriorating for 3-4 days. Per family and facility staff the patient appears to have developed a new left facial droop. The patient was evaluated with CT exam it is found no acute intracranial processes. He had elevated white count and was found to have urinary tract infection, initial Gram stain finds gram-negative bacilli. The patient was started on Rocephin and hydrated in the ER. The patient wishes to be DNR with comfort measures. The ER provider spoke with Dr. Campa patient's PCP who agreed with plan of care and outpatient antibiotics and to be discharged back to [facility] in keeping with family wishes. At the care facility the patient had deteriorating responsiveness and is redirected back to the ER at the family wishes. The family reports the patient has consumed little food or fluids. The patient at baseline is aphasic with a rather dense dementia but has been able to eat and drink. The patient has had no fevers and no chills have been noted. The patient has not been dyspneic and has had no cough or wheezing. He has had no nausea vomiting or indications of abdominal pain. Urine sample obtained yesterday confirms urinary tract infection. No reports of diarrhea. Upon arrival to the ER the patient has a temperature of 98.8?, heart rate of 71, blood pressure 123/70, respirations 16 saturating 98% on room air. CT scan is again repeated this evening finds no acute intracranial pathology, cerebral volume loss for age with chronic microvascular ischemic changes. Chest x-ray obtained finds no acute 5 cardiopulmonary pathology opacities or infiltrates. A 12 lead EKG is obtained finding atrial fibrillation with a ventricular rate of 71, incomplete intraventricular conduction delay with QRS interval of 111 milliseconds, QTC is 467 milliseconds. On laboratory analysis he has white count 9.4, hemoglobin 12.0, hematocrit 35.4 platelets 215. His electrolytes within normal limits with a potassium of 4.0 and magnesium 1.6. His BUN is 21 with a creatinine is 0.69. His nonfasting glucose is 135. On liver function tests he has elevated bilirubin 1.4, AST of 21, ALT of 18 and alkaline phosphatase of 55. He has a total CK of 61 and mildly elevated troponin 0.036. His proBNP is 907. Procalcitonin is found to be 0.07. In the ER patient received another dose of ceftriaxone 1 g IV as well as 1 L normal saline. Blood cultures obtained and covered screening initiated. Family is in agreement with admission for IV antibiotics and hydration. The patient is admitted to the medicine service for urinary tract infection unresponsive to outpatient treatment. Patient History Medical History Abnormality of gait and mobility (Acute) Atherosclerosis (Acute) BPH (benign prostatic hyperplasia) (Chronic) CAD (coronary artery disease) (Chronic) Cataract (Acute) Colonic polyp (Acute) Dementia (Acute) Depression (Chronic) Diabetes type 2, controlled (Chronic) Hearing difficulty of both ears (Acute) HTN (hypertension) (Chronic) Hyperlipidemia (Chronic) Nasal polyp (Acute) Restless leg syndrome (Acute) Rotator cuff dysfunction (Acute) TIA (transient ischemic attack) (Acute) Urinary incontinence (Acute) Surgical History History of total knee replacement (Chronic) Hx of appendectomy (Chronic) Hx of appendectomy (Acute) Hx of CABG (Chronic) Hx of rotator cuff surgery (Chronic) Family & Social History Family History (Updated 01/22/20 @ 00:00 by NELSON Atwood) Father Heart disease Mother Asthma Social History: household members spouse Tobacco & Substance use: Tobacco type cigarettes,pipe Smoking Status Former smoker alcohol intake current alcohol intake frequency holiday/special occasion Substance Use Type does not use Comment: The patient is currently is a resident [facility]. Smoking: Patient quit smoking in the 1980s. Alcohol: Family reports patient consumes 1 beer on rare occasions. Substance use: Patient uses no recreational pharmaceuticals cannabis herbal products. Advanced directives: Confirmed the patient's wishes with family comments are with POLST dated 11/27/2017 patient designates the patient to be DNR with comfort measures for care. Meds Home Medications and Allergies Home Medications Medication Instructions Recorded Confirmed Type terazosin 10 mg PO QPM #0 11/02/16 10/28/17 History calcium carbonate [Calcium 500] 250 mg PO BID 10/28/17 10/28/17 History cholecalciferol (vitamin D3) 5,000 unit PO DAILY 10/28/17 10/28/17 History [Vitamin D3] glipizide 5 mg PO BID 10/28/17 10/28/17 History losartan 50 mg PO DAILY 10/28/17 10/28/17 History metformin 500 mg PO BID 10/28/17 10/28/17 History multivitamin 1 tab PO DAILY 10/28/17 10/28/17 History sertraline 50 mg PO DAILY 10/28/17 10/28/17 History clopidogrel [Plavix] 75 mg PO DAILY #30 tab 10/31/17 Rx dextrose 50 % in water (D50W) 0 gm IV PRN PRN #30 ml 10/31/17 Rx docusate sodium 100 mg PO BID #60 cap 10/31/17 Rx enoxaparin [Lovenox] 40 mg SUB-Q QHS #15 ml 10/31/17 Rx ropinirole [Requip] 1.5 mg PO BEDTIME #45 tab 10/31/17 Rx rosuvastatin [Crestor] 20 mg PO BEDTIME #30 tab 10/31/17 Rx methenamine hippurate 1 g PO DAILY 05/09/18 05/09/18 History risperidone 0.25 mg 05/09/18 History terazosin 10 mg PO DAILY 05/09/18 05/09/18 History cephalexin [Keflex] 500 mg PO QID 7 Days #28 cap 01/20/20 Rx Allergies Allergy/AdvReac Type Severity Reaction Status Date / Time shrimp Allergy Intermediate Rash Verified 12/15/17 19:15 ezetimibe [From Vytorin] Allergy Mild SENSITIVITY Verified 12/15/17 19:15 simvastatin Allergy Mild SENSITIVITY Verified 12/15/17 19:15 [id number] Reductase Allergy Verified 05/09/18 08:08 Inhibitor lactose AdvReac Intermediate Gastrointestinal Verified 12/15/17 19:15 Upset Review of Systems Review of Systems ROS: Yes All systems reviewed with the patient and are negative except as otherwise documented Exam Vital Signs (past 8 hours): - 01/21/20 20:05 01/21/20 20:06 01/21/20 20:31 Temperature 98.8 F Pulse Rate 71 70 75 Respiratory Rate 16 Blood Pressure 123/70 128/68 Pulse Oximetry 98 94 97 01/21/20 22:31 Temperature Pulse Rate 75 Respiratory Rate 12 Blood Pressure 126/61 Pulse Oximetry 98 Oxygen Delivery Method Room Air Narrative Exam Narrative: GENERAL APPEARANCE: well developed, slender elderly male with a BMI of 23.6 was unresponsive to verbal stimulus with spontaneous nonpurposeful movement. HEENT: Slight flattening of the left nasal labial fold, right pupil 2.5 mm, left pupil 2 mm, conjunctiva clear, gaze tracks bilaterally, no rhinorrhea, mucous membranes are dry and pink. NECK/THYROID: Decreased range of motion, no JVD, no thyromegaly, trachea midline. LYMPH NODES: no cervical or supraclavicular lymphadenopathy. SKIN: [place], warm and dry, no visible lesions, rashes, ulcerations or petechiae. HEART: Irregularly irregular rhythm, S1-S2, 2/6 systolic murmur, no rubs or gallops, brisk capillary refill, no edema LUNGS: clear to auscultation bilaterally, no coarseness crackles or wheezing, no cough present CHEST: Symmetrical movement, no accessory muscle use, good tidal volume. ABDOMEN: Soft, flat no distention, no abdominal pain on palpation, no guarding or peritoneal signs, no organomegaly, no flank or suprapubic tenderness, active bowel tones. BACK: nontender to palpation. EXTREMITIES: Spontaneous movement of the right arm and also left arm, resistance to passive range of motion bilateral lower extremities NEUROLOGIC: GCS-9 (E-2, V-2, M-5), patient unable to follow commands, sensation intact to light touch. PSYCH: The patient is stuporous, not follow commands and does not appear to respond to family at bedside. Objective Labs Result Diagrams: 01/21/20 20:21 01/21/20 20:21 Labs: Laboratory Results - last 24 hr 01/21/20 01/21/20 01/21/20 20:21 20:21 20:21 WBC 9.4 RBC 3.85 L Hgb 12.0 L Hct 35.4 L MCV 92.0 MCH 31.1 MCHC 33.8 RDW 13.9 Plt Count 215 Neut % (Auto) 81.6 H Lymph % (Auto) 10.2 L [place] % (Auto) 7.2 Eos % (Auto) 0.7 L Baso % (Auto) 0.3 Neut # (Auto) 7700 H Lymph # (Auto) 1000 L [place] # (Auto) 700 Eos # (Auto) 100 Baso # (Auto) 0 Sodium 136 L Potassium 4.0 Chloride 104 Carbon Dioxide 25 BUN 21 H Creatinine 0.69 Estimated GFR > 60.0 BUN/Creatinine Ratio 30.4 H Glucose 135 H Lactate Calcium 9.7 Magnesium 1.6 Total Bilirubin 1.4 H AST 21 ALT 18 Alkaline Phosphatase 55 Total Creatine Kinase 61 CK-MB (CK-2) TNP CK-MB (CK-2) Rel Index TNP Troponin I 0.036 H NT-Pro-B Natriuret Pep 907 H Total Protein 6.7 Albumin 3.8 Globulin 2.9 Albumin/Globulin Ratio 1.3 Procalcitonin 0.07 COVID-19 PCR 01/21/20 01/21/20 20:21 22:00 WBC RBC Hgb Hct MCV MCH MCHC RDW Plt Count Neut % (Auto) Lymph % (Auto) [place] % (Auto) Eos % (Auto) Baso % (Auto) Neut # (Auto) Lymph # (Auto) [place] # (Auto) Eos # (Auto) Baso # (Auto) Sodium Potassium Chloride Carbon Dioxide BUN Creatinine Estimated GFR BUN/Creatinine Ratio Glucose Lactate 0.8 Calcium Magnesium Total Bilirubin AST ALT Alkaline Phosphatase Total Creatine Kinase CK-MB (CK-2) CK-MB (CK-2) Rel Index Troponin I NT-Pro-B Natriuret Pep Total Protein Albumin Globulin Albumin/Globulin Ratio Procalcitonin COVID-19 PCR Negative Assessment & Plan Assessment & Plan narrative: This is an 84-year-old male patient who was a DNR with comfort measures including fluids and antibiotics per family 2 presents to the ER with worsening mentation following being diagnosed the day previously in the ER with urinary tract infection. 1. Severe sepsis with end-organ dysfunction, without septic shock, secondary to urinary tract infection, present on admission, active. -neurologic hepatic and cardiac end-organ dysfunction. -SOFA score is 4. White blood cell count today is 9.4 with 81.6% neutrophils improved from a white count of 15.4 and 87.6% neutrophils yesterday. Pr ocalcitonin is 0.07. -patient diagnosed in the ER yesterday with UTI and discussed with PCP and selina ent family who agree to outpatient treatment return the patient to [facility]. Patient returns today with deteriorating mental status and poor p.o. intake. -the patient has a POLST form designating DNR status confirmed by family requesting no aggressive treatment be on fluids and antibiotics. We will not follow-up aggressive treatment related to patient's DNR status and stated wishes at family request. -patient received 1 L normal saline in the emergency department and Rocephin 1 g IV in the emergency department. Will continue Rocephin 1 g IV daily. 2. Acute metabolic encephalopathy secondary to urinary tract infection in the setting of stroke and dementia, present on admission, active -per family bedside the patient has decreased mental status and typically is able to eat and drink and and has very little oral intake today. -will treat underlying etiology of urinary tract infection with Rocephin as described above. -consideration is also given to possibility of stroke with history of CVA and new left facial droop in the setting of new onset atrial fibrillation discussed below. CT scan both yesterday and today find no acute pathology. -will continue home regimen of Zoloft 50 mg daily. -bedside swallow screen. -requested speech therapy consult for swallow evaluation. -constant carbohydrate dysphagia diet. 3. Acute dehydration, present on admission, active. -patient received 1 L of IV fluid in the emergency department yesterday and another L IV fluid today. -patient has a sodium 136 today a BUN of 21 and a creatinine of 0.69 with a BUN creatinine ratio of 30.4. -patient has a history of coronary artery disease and has an elevated proBNP at 907 and troponin is 0.036. Rehydrate cautiously with normal saline at 75 cc/hour. 4. New onset atrial fibrillation, controlled rate, present on admission, active. -history of coronary artery disease and CABG x5, no prior diagnosis of atrial fibrillation. -12 lead EKG today finds atrial fibrillation with ventricular rate of 71, interventricular conduction line, QRS is 111 milliseconds, QTC is 467 milliseconds. Prior EKGs identify normal sinus rhythm or sinus bradycardia with first-degree AV block. -potassium is 4.0 and magnesium is 1.6, ordered magnesium 2 g IV x1 now. -as the patient will not be treated aggressively will not order an echocardiogram, or full anticoagulation. -ordered Plavix 75 mg daily. -patient will be monitored on tele. 5. Elevated troponin, present on admission, active. -patient presents with a mildly elevated troponin of 0.036, total CK is 61. Patient also manifest atrial fibrillation albeit a controlled rate. Elevation not believed to be related to renal function with a creatinine 0.69. -proBNP is elevated at 907, without evidence of pulmonary or peripheral edema. -12 lead EKG today finds atrial fibrillation with ventricular rate of 71, interventricular conduction line, QRS is 111 milliseconds, QTC is 467 millisecongs, no evidence of acute ischemia or infarct. -the patient is a DNR wishing comfort measures only with antibiotics and fluids. Will not pursue aggressively but will recheck troponin in the morning. 6. Diabetes type 2, controlled, chronic, stable. -blood glucose on admission labs is 135. -patient takes metformin 500 mg twice daily. -fingerstick glucose checks every 6 hours until eating and a.c. and HS, cover with low-dose correctional insulin. -medium consult carbohydrate dysphagia diet. 7. History of CVA with frontal temporal lobe dementia, chronic, stable. -will continue patient's home regimen of Zoloft 50 mg daily. Patient was previously on quit pitting and trazodone both of which have not been discontinued by his PCP. 8. Restless leg syndrome, chronic, stable. -continue home regimen of ropinirole. VTE prophylaxis: Bilateral SCDs, enoxaparin IV fluid: Normal saline at 75 cc/hour. Diet: Obtain bedside swallow screening, constant carbohydrate dysphagia diet. Code status: DNR per POL dated 11/27/2017 confirmed by family. The patient's is his surrogate decision maker. The patient is admitted to the hospital for severe sepsis with neurologic hepatic and cardiac end-organ dysfunction. The patient is admitted as an inpatient with expected length of stay to be greater than 2 midnights. COVID-19 COVID-19 status: Negative Result date/Date tested (Pos, Neg/Pending): 01/21/20 Scores GCS [place] coma scale eye opening: To pressure Seth coma scale verbal response: Sounds Seth coma scale motor response: Localising [place] coma scale total score: 9 SOFA PaO2/FIO2: >=400 mmHg Platelets: >= 150 Bilirubin: 1.2-1.9 mg/dL Hypotension: MAP >= 70 mmHg Seth Coma Scale: 6-9 Renal: < 1.2 mg/dL SOFA Score: 4
[2020-01-21] MEDS: SODIUM CHLORIDE 0.9% 1,000 ML 75 ML IV (23:27)
[2020-01-21 23:38] VITALS: BMI 23.6
[2020-01-22] VITALS (10 sets, daily range): BP systolic 121–143; BP diastolic 34–65; PULSE 50–80; RESP 15–19; TEMP 36.2–36.8; O2SAT 92–98
[2020-01-22] MEDS: ENOXAPARIN 40 MG/0.4 ML SYRINGE SUBCUT ×2 (01:05→21:16)
[2020-01-22] MEDS: MAGNESIUM SULFATE 2 GM/50 ML PIGGYBACK IV (01:06)
--- NOTE | 2020-01-22 03:00 | PC.NURSE ---
Pt. was settled in the room @ 3-11 shift. Pt. nonverbal admission assessment was provided by his daughter & . Tried to do bedside swallow evaluation, but patient dose not follow any command ie; to swallow his saliva. Medications from the facility was not reconciled. Daughter & spouse does not know his medication routine since he resided in the SNF. Coordinator Debra Olivas RN tried to call the SNF but no one answer the phone. Noted left thumb was swollen & very painful to touch NELSON Sinclair was notified. Will cont. POC & monitor.
[2020-01-22 05:57] LABS: Add Manual Diff / Slide Review NO; Basophils Absolute Auto 0 /uL (0-100); Basophils Percent Auto 0.4 % (0-2); Eosinophils Absolute Auto 100 /uL (0-450); Eosinophils Percent Auto 1.5 % (2-4); Hematocrit 33.3 % (41-53); Hemoglobin 11.3 g/dL (13.5-17.5); Lymphocytes Absolute Auto 1100 /uL (1100-4500); Lymphocytes Percent Auto 15.1 % (25-40); Mean Corpuscular HGB Conc 33.8 % (30-36); Mean Corpuscular Hemoglobin 31.1 PG (26-34); Mean Corpuscular Volume 92.1 fL (80-100); Monocytes Absolute Auto 600 /uL (0-900); Monocytes Percent Auto 8.9 % (3-14); Neutrophils Absolute Auto 5200 /uL (1500-7000); Neutrophils Percent Auto 74.1 % (50-75); Platelet Count 204 X10^3/uL (150-400); Red Blood Cell Count 3.61 X10^6/uL (4.5-5.9); Red Cell Distribution Width 13.3 % (11.6-14.8)
[2020-01-22 06:09] LABS: BUN Creatinine Ratio 32.1 (6-22); Blood Urea Nitrogen 17 mg/dL (9-20); Calcium 8.8 mg/dL (8.4-10.2); Carbon Dioxide 22 mmol/L (22-32); Chloride 106 mmol/L (98-107); Estimated Glomerular Filt Rate > 60.0 mL/min (>60); Glucose 118 mg/dL (80-110); HEMOLYSIS < 15 (0-50); Potassium 3.6 mmol/L (3.4-5.1); Sodium 136 mmol/L (137-145)
[2020-01-22 06:19] LABS: NT-proBNP (BNP-Adult 18+) 713 pg/mL (<450); Troponin I 0.039 ng/mL (0.01-0.034)
--- NOTE | 2020-01-22 09:01 | PT-IP ANOTE ---
Spoke to GISSELLE Figueroa who just spoke to family in patient room. They currently do not want any aggressive tx and therapy. Pt is at baseline who is very demented and aphasic. Pt also has very limited response to stimulus and does not follow any command. Per EMR, pt is DNR with comfort care.
--- NOTE | 2020-01-22 09:28 | SLP.IPNOTE ---
Attempted bedside swallow evaluation. Pt was not awake enough to participate. Will re-attempt as able.
--- NOTE | 2020-01-22 10:20 | CM.IDA ---
Addendum entered by RADHA Ni 01/22/20 12:09: Correction: youngest dtr Brianna (Dequan) son Alejandro (Ch[place]). Met w/family and facilitated goals of care conversation, summarized hospice service per their request. Dr Iyer attended and eloquently summarized patient's expected disease trajectory and the anticipated decline over the next weeks/months. Dr Iyer suggests Hospice care as appropriate POC for patient and family agree. Hospice referral requested by family and initiated by this INSECTICIDE EXPERT- [facility], referral faxed and spoke to [facility]; they are taking referrals and expect admission times w/in 48-72 hrs. Spoke then to Ria at [facility] P# [phone]. She has been in close contact w/patient's family. Ria happy to welcome patient back w/Hospice. Family now deciding on a return to [facility], likely w/Hospice vs return home w/spouse and family w/Hospice DME and staffing in place. Following very closely for coordination. JW Original Note: Initial DCP Assessment Note Patient is an 84 yo male, resident of [facility]. Patient presents w/lethargy and altered mental status, found to have severe sepsis sec to UTI PCP: Naina Campa Payer: [facility] Reviewed chart. Spoke w/RN Katia this morning, Palliative Care and Acute Care RN, who had spent time with patient's spouse Nancy and oldest dtr in room, initiating the conversation about patient's current quality of life and goals of care. Katia suggests this INSECTICIDE EXPERT facilitate a family mtg to continue this conversation while reviewing options for patient's DC plan. Met w/patient's spouse and dtr, introduced INSECTICIDE EXPERT role. Patient lives at [facility] and has advanced dementia. Patient has his eyes open for this conversation but is not responsive or verbal. Spouse and dtr have invited patient's youngest dtr (Kayla) and son (Dequan) to join them so they could discuss next steps, goals for patient's care, together. This INSECTICIDE EXPERT offered to facilitate this conversation (?) and family appreciative. According to Dr Iyer, family relate to him that patient has been declining over approx the last month, patient has lost his appetite, family has not been able to visit d/t COVID-19 pandemic, and Dr Iyer suspects this decline is patient's advanced dementia w/poor nutritional intake overwhelming his body. Patient is DNR, abx okay to treat infection. Goals of care/ DC coordinating conversation scheduled for 1130 this morning with patient's spouse and adult children in outside courtyard (d/t safety risks, COVID-19), Dr Iyer aware and will try to attend. RADHA Ni Discharge Planning/Care Management CM Discharge Assessment Start: 01/22/20 10:13 Freq: Status: Active Protocol: Document 01/22/20 10:13 CARINA (Rec: 01/22/20 10:20 CARINA [id number]) Discharge Planning Assessment Assigned Rn Occupational RADHA Earl DPOA/Assigned Designee Name Nancy Gauthier, spouse Contact Information home:[phone] cell: [phone] Advance Directives? Yes Advance Directives on File No History Provided By Family Member,Medical Record Prior Living Arrangements Assisted Living Household Members caregiver Type of transportation used prior to Relies on Others admit Facility Name Admitted From: [facility] Willing to Return to Facility? Yes Independent with ADL's No Is patient alert and oriented? No Needs Assistance With Bathing,Eating,Grooming,Meal Prep,Toileting,Managing Medications,Home Chores / Shopping Comment Possible dispo - back to [facility] w/Hospice vs SNF , discussing w/family Discharge Plan [facility]isted Living Facility [facility] If patient plan is SNF: Has PASSR been Yes completed? Review Status In Process
--- NOTE | 2020-01-22 12:33 | PM.PN.1 ---
Subjective Subjective Date Patient Seen: 01/22/20 Time Patient Seen: 12:34 Interval history: Mr. Sherman Rowley is an 84-year-old male with history significant for coronary artery disease, atrial fibrillation, CVA, type 2 diabetes, frontal temporal dementia, hypertension, hyperlipidemia, BPH and significant difficulty hearing who returns to the ER for worsening altered mental status. His decline has been progressive over the past few months and his nutrition has seemingly been poor, however there was a significant decline recently. Had long discussion today with family at bedside and at care meeting with care management regarding current treatments and therapies and the likelihood of continued progression of his already advanceed dementia. Family seemingly agreeable to hospice consultation, unclear if patient will return back to [facility] on Hospice or will go home. Family wishes to see if there is some improvement with antibiotics and fluids, which should be in the next 24 hours if it were to occur given patient is currently on day 3 of antibiotic therapy. There is a possibility of additional stroke, however MRI would not director project management at this time. Exam Vital Signs (past 8 hours): - 01/22/20 05:00 01/22/20 07:20 01/22/20 09:00 Temperature 97.4 F L 97.2 F L Pulse Rate 60 69 Respiratory Rate 18 18 Blood Pressure 121/64 129/65 Pulse Oximetry 94 97 96 01/22/20 12:00 Temperature 97.5 F L Pulse Rate 56 L Respiratory Rate 18 Blood Pressure 123/34 L Pulse Oximetry 96 Oxygen Delivery Method Room Air Oxygen Flow Rate 0 Narrative Exam Narrative: GENERAL APPEARANCE: well developed, thin and wasted appearing male, elderly male with a BMI of 23.6. HEENT: Slight flattening of the left nasal labial fold, right pupil 2.5 mm, left pupil 2 mm, conjunctiva clear, gaze tracks bilaterally, no rhinorrhea, mucous membranes are dry and pink. NECK/THYROID: Decreased range of motion, no JVD, no thyromegaly, trachea midline. LYMPH NODES: no cervical or supraclavicular lymphadenopathy. SKIN: [place], warm and dry, no visible lesions, rashes, ulcerations or petechiae. HEART: Irregularly irregular rhythm, S1-S2, 2/6 systolic murmur, no rubs or gallops, brisk capillary refill, no edema LUNGS: clear to auscultation bilaterally, no coarseness crackles or wheezing, no cough present CHEST: Symmetrical movement, no accessory muscle use, good tidal volume. ABDOMEN: Soft, flat no distention, no abdominal pain on palpation, no guarding or peritoneal signs, no organomegaly, no flank or suprapubic tenderness, active bowel tones. BACK: nontender to palpation. EXTREMITIES: Spontaneous movement of the right arm and also left arm, resistance to passive range of motion bilateral lower extremities NEUROLOGIC: patient unable to follow commands, does not open eyes. Yawns intermittently but does not speak. PSYCH: The patient is stuporous, not follow commands and does not appear to respond to family at bedside Objective Labs Result Diagrams: 01/22/20 05:35 01/22/20 05:35 Labs: Laboratory Results - last 24 hr 01/21/20 01/21/20 01/21/20 20:21 20:21 20:21 WBC 9.4 RBC 3.85 L Hgb 12.0 L Hct 35.4 L MCV 92.0 MCH 31.1 MCHC 33.8 RDW 13.9 Plt Count 215 Neut % (Auto) 81.6 H Lymph % (Auto) 10.2 L [place] % (Auto) 7.2 Eos % (Auto) 0.7 L Baso % (Auto) 0.3 Neut # (Auto) 7700 H Lymph # (Auto) 1000 L [place] # (Auto) 700 Eos # (Auto) 100 Baso # (Auto) 0 Sodium 136 L Potassium 4.0 Chloride 104 Carbon Dioxide 25 BUN 21 H Creatinine 0.69 Estimated GFR > 60.0 BUN/Creatinine Ratio 30.4 H Glucose 135 H Lactate Calcium 9.7 Magnesium 1.6 Total Bilirubin 1.4 H AST 21 ALT 18 Alkaline Phosphatase 55 Total Creatine Kinase 61 CK-MB (CK-2) TNP CK-MB (CK-2) Rel Index TNP Troponin I 0.036 H NT-Pro-B Natriuret Pep 907 H Total Protein 6.7 Albumin 3.8 Globulin 2.9 Albumin/Globulin Ratio 1.3 Procalcitonin 0.07 COVID-19 PCR 01/21/20 01/21/20 01/22/20 20:21 22:00 05:35 WBC 7.0 RBC 3.61 L Hgb 11.3 L Hct 33.3 L MCV 92.1 MCH 31.1 MCHC 33.8 RDW 13.3 Plt Count 204 Neut % (Auto) 74.1 Lymph % (Auto) 15.1 L [place] % (Auto) 8.9 Eos % (Auto) 1.5 L Baso % (Auto) 0.4 Neut # (Auto) 5200 Lymph # (Auto) 1100 [place] # (Auto) 600 Eos # (Auto) 100 Baso # (Auto) 0 Sodium Potassium Chloride Carbon Dioxide BUN Creatinine Estimated GFR BUN/Creatinine Ratio Glucose Lactate 0.8 Calcium Magnesium Total Bilirubin AST ALT Alkaline Phosphatase Total Creatine Kinase CK-MB (CK-2) CK-MB (CK-2) Rel Index Troponin I NT-Pro-B Natriuret Pep Total Protein Albumin Globulin Albumin/Globulin Ratio Procalcitonin COVID-19 PCR Negative 01/22/20 05:35 WBC RBC Hgb Hct MCV MCH MCHC RDW Plt Count Neut % (Auto) Lymph % (Auto) [place] % (Auto) Eos % (Auto) Baso % (Auto) Neut # (Auto) Lymph # (Auto) [place] # (Auto) Eos # (Auto) Baso # (Auto) Sodium 136 L Potassium 3.6 Chloride 106 Carbon Dioxide 22 BUN 17 Creatinine 0.53 L Estimated GFR > 60.0 BUN/Creatinine Ratio 32.1 H Glucose 118 H Lactate Calcium 8.8 Magnesium Total Bilirubin AST ALT Alkaline Phosphatase Total Creatine Kinase CK-MB (CK-2) CK-MB (CK-2) Rel Index Troponin I 0.039 H NT-Pro-B Natriuret Pep 713 H Total Protein Albumin Globulin Albumin/Globulin Ratio Procalcitonin COVID-19 PCR Assessment & Plan Assessment & Plan narrative: This is an 84-year-old male patient who was a DNR with comfort measures including fluids and antibiotics per family 2 presents to the ER with worsening mentation following being diagnosed the day previously in the ER with urinary tract infection. 1. Severe sepsis with end-organ dysfunction, without septic shock, secondary to urinary tract infection, present on admission, active. -neurologic hepatic and cardiac end-organ dysfunction. -SOFA score is 4. White blood cell count today is 9.4 with 81.6% neutrophils improved from a white count of 15.4 and 87.6% neutrophils yesterday. Procalcitonin is 0.07. -patient diagnosed in the ER yesterday with UTI and discussed with PCP and patient family who agree to outpatient treatment return the patient to [facility]. Patient returned with deteriorating mental status and poor p.o. intake which may be chronic progression of dementia, metabolic encephalopathy due to UTI/sepsis, or less likely CVA. -the patient has a POLST form designating DNR status confirmed by family requesting no aggressive treatment be on fluids and antibiotics. We will not follow-up aggressive treatment related to patient's DNR status and stated wishes at family request. -patient received 1 L normal saline in the emergency department and Rocephin 1 g IV in the emergency department. Will continue Rocephin 1 g IV daily, today is day 3 of antibiotic therapy for UTI. 2. Acute metabolic encephalopathy secondary to urinary tract infection in the setting of stroke and dementia, present on admission, active -per family bedside the patient has decreased mental status and typically is able to eat and drink (although has been declining recently) and and has very little oral intake today. -will treat underlying etiology of urinary tract infection with Rocephin as described above. -consideration is also given to possibility of stroke with history of CVA and new left facial droop in the setting of new onset atrial fibrillation discussed below. CT scan both yesterday and today find no acute pathology. MRI will not director project management. -will continue home regimen of Zoloft 50 mg daily. -bedside swallow screen failed -requested speech therapy consult for swallow evaluation if improved mental status as he is unable to follow commands at this time. -constant carbohydrate dysphagia diet for comfort. 3. Acute dehydration, present on admission, active. -patient received 1 L of IV fluid in the emergency department yesterday and another L IV fluid today. -patient has a sodium 136 today a BUN of 21 and a creatinine of 0.69 with a BUN creatinine ratio of 30.4. -patient has a history of coronary artery disease and has an elevated proBNP at 907 and troponin is 0.036. Rehydrate cautiously with normal saline at 75 cc/hour. 4. New onset atrial fibrillation, controlled rate, present on admission, active. -history of coronary artery disease and CABG x5, no prior diagnosis of atrial fibrillation. -12 lead EKG today finds atrial fibrillation with ventricular rate of 71, interventricular conduction line, QRS is 111 milliseconds, QTC is 467 milliseconds. Prior EKGs identify normal sinus rhythm or sinus bradycardia with first-degree AV block. May be in the setting of sepsis. -potassium is 4.0 and magnesium is 1.6, ordered magnesium 2 g IV x1 now. -as the patient will not be treated aggressively will not order an echocardiogram, or full anticoagulation. -ordered Plavix 75 mg daily if he is able to take oral medications. -patient will be monitored on tele. 5. Elevated troponin, present on admission, active. -patient presents with a mildly elevated troponin of 0.036, total CK is 61. Patient also manifest atrial fibrillation albeit a controlled rate. Elevation not believed to be related to renal function with a creatinine 0.69. -proBNP is elevated at 907, without evidence of pulmonary or peripheral edema. -12 lead EKG today finds atrial fibrillation with ventricular rate of 71, interventricular conduction line, QRS is 111 milliseconds, QTC is 467 millisecongs, no evidence of acute ischemia or infarct. -the patient is a DNR wishing comfort measures only with antibiotics and fluids. Will not pursue aggressively but will recheck troponin in the morning. 6. Diabetes type 2, controlled, chronic, stable. -blood glucose on admission labs is 135. -patient takes metformin 500 mg twice daily, continue to hold. -fingerstick glucose checks every 6 hours until eating and a.c. and HS, cover with low-dose correctional insulin. -medium consult carbohydrate dysphagia diet. 7. History of CVA with frontal temporal lobe dementia, chronic, stable. -will continue patient's home regimen of Zoloft 50 mg daily. Patient was previously on quit pitting and trazodone both of which have not been discontinued by his PCP. 8. Restless leg syndrome, chronic, stable. -continue home regimen of ropinirole. VTE prophylaxis: Bilateral SCDs, enoxaparin IV fluid: Normal saline at 75 cc/hour. Diet: Obtain bedside swallow screening, constant carbohydrate dysphagia diet. Code status: DNR per POL dated 11/27/2017 confirmed by family. The patient's is his surrogate decision maker. Dispo: remains inpatient. continue antibiotics and fluid support at this time. Will have better idea tomorrow if his mental status is going to improve. Anticipate discharge home vs assisted living on hospice even if he does improve and begins eating. Quality VTE Deep Vein Thrombosis/Pulmonary Embolism Present on Admission: No
--- NOTE | 2020-01-22 12:35 | SLP.IPNOTE ---
Talked to nursing @1230. Informed that pt's family are pursuing Hospice care. Pt remains not appropriate for evaluation. Will retry tomorrow.
[2020-01-22] MEDS: SODIUM CHLORIDE 0.9% 1,000 ML 75 ML IV (15:18)
--- NOTE | 2020-01-22 15:39 | PC.NURSE ---
Addendum entered by Roxanna Pressley R.N. 01/22/20 22:47: Speech more clear and understandable. Brief changed and pt repositioned for comfort and to offload pressure points. Waffle cushion placed under pt's buttocks. BL calf scd's in place. Bed alarm in place. Addendum entered by Roxanna Pressley R.N. 01/22/20 21:44: Discussion with hospitalist Yahir re pt's telemetry. Per PASTE THINNERPam, pt's heartrate as low as 49 this shift. Pt in afib and has been since arrival to hospital. NELSON Sinclair was made aware. Verbal order to discontinue telemetry. Addendum entered by Roxanna Pressley R.N. 01/22/20 19:54: Awake and alert, nonverbal except when pericare and brief change performed pt does make sounds. Strong manager orange with hands BL. Reddened coccyx L > R. Barrier cream liberally applied to coccyx/buttocks and pt positioned off of buttocks. Plan to place waffle cushion with next turn. Pt incontinent of urine. Oral care per INSPECTING SUPERVISOR. BL calf scd's in place. Original Note: Pt in bed with eyes open. Does not make eye contact with staff when attempt to engage pt in conversation. Pt does utter some sound, but unintelligible. Falls asleep easily with snoring respirations and periods of apnea. IV fluids infusing without difficulty to right forearm iv site. Wrapped in kerlix and secured with netting by this sba underwriter. BL calf scd's in place. Head of bed elevated. No family present in pt's room. Bed alarm set.
[2020-01-22] MEDS: CEFTRIAXONE 1 GM/50 ML FROZ.PIGGY IV (21:16)
[2020-01-23] VITALS (10 sets, daily range): BP systolic 125–152; BP diastolic 57–75; PULSE 48–69; RESP 14–16; TEMP 36.3–36.8; O2SAT 92–97
--- NOTE | 2020-01-23 03:31 | PC.NURSE ---
Pt. wide awake when his brief was changed. Bibiana & skin care done & barrier cream applied to coccyx. Informed patient that we need to take off his brief because it was wet. Let him know that he needs to keep himself dry, he tried to swing his right hand to the staff. Another staff called to help us watch & keep his right hand from hitting anyone. RN on 3-11 shift also reported that patient commented I'll break your hand. NELSON Sinclair notified ordered to do bedside swallow eval. Will implement order & monitor.
--- NOTE | 2020-01-23 04:13 | PC.NURSE ---
Pt. bolted upright @ 50 degrees in bed. Started given him a wet swab & he was sucking & swallowing the water. Then proceeded with a teaspoon of water swallow without any problem, no coughing noted. NELSON Sinclair was at the bedside when swallow evaluation was performed. He ordered to give pt. some pudding & ate the whole cup of pudding without any S&S of swallowing difficulties. He also ordered to hold Seroquel at this time since patient is calmed no agitation noted at this time. Will cont. POC & monitor.
[2020-01-23] MEDS: SODIUM CHLORIDE 0.9% 1,000 ML 75 ML IV ×2 (05:34→18:55)
--- NOTE | 2020-01-23 10:40 | P.PN_ITS ---
Subjective Subjective Date Patient Seen: 01/23/20 Time Patient Seen: 10:40 Interval history: Mr. Sherman Rowley is an 84-year-old male with history significant for coronary artery disease, atrial fibrillation, CVA, type 2 diabetes, frontal temporal dementia, hypertension, hyperlipidemia, BPH and significant difficulty hearing who returned to the ER for worsening altered mental status. His decline has been progressive over the past few months and his nutrition has seemingly been poor, however there was a significant decline recently. Yesterday he was not responsive but slowly started to improve overnight and was actually able to eat a little bit of putting with a lot of prompting and assistance over about 45 minutes. This morning he was alert, he is aphasic at baseline but has a new left hemiparesis as he was able to follow commands on the right. Speech evaluation planned for today, care planning in place for possible discharge to [facility] with hospice tomorrow. Exam Vital Signs (past 8 hours): - 01/23/20 03:37 01/23/20 04:13 01/23/20 07:33 Temperature 97.6 F 97.8 F Pulse Rate 48 L 53 L Respiratory Rate 16 15 Blood Pressure 144/60 H 140/75 Pulse Oximetry 97 97 92 Oxygen Delivery Method Room Air Oxygen Flow Rate 0 Narrative Exam Narrative: GENERAL APPEARANCE: well developed, thin and wasted appearing male, elderly male with a BMI of 23.6. Alert but falls asleep easily. HEENT: Slight flattening of the left nasal labial fold, right pupil 2.5 mm, left pupil 2 mm, conjunctiva clear, gaze tracks bilaterally, no rhinorrhea, mucous membranes are dry and pink. NECK/THYROID: Decreased range of motion, no JVD, no thyromegaly, trachea midline. LYMPH NODES: no cervical or supraclavicular lymphadenopathy. SKIN: [place], warm and dry, no visible lesions, rashes, ulcerations or petechiae. HEART: Irregularly irregular rhythm with bradycardic rate, S1-S2, 2-3/6 systolic murmur, no rubs or gallops, brisk capillary refill, no edema LUNGS: clear to auscultation bilaterally, no coarseness crackles or wheezing, no cough present CHEST: Symmetrical movement, no accessory muscle use, good tidal volume. ABDOMEN: Soft, flat no distention, no abdominal pain on palpation, no guarding or peritoneal signs, no organomegaly, no flank or suprapubic tenderness, active bowel tones. BACK: nontender to palpation. EXTREMITIES: Spontaneous movement of the right arm, no left sided movement. Follows commands with right but not left side. NEUROLOGIC: patient follows simple commands with the right, he is aphasic, left hemiparesis. PSYCH: alert, falls asleep easily, tracks and follows commands as noted above. Objective Labs Result Diagrams: 01/22/20 05:35 01/22/20 05:35 Assessment & Plan Assessment & Plan narrative: This is an 84-year-old male patient who was a DNR with comfort measures including fluids and antibiotics per family 2 presented to the ER with worsening mentation following being diagnosed the day previously in the ER with urinary tract infection as well as a Left sided facial droop. 1. Severe sepsis with end-organ dysfunction, without septic shock, secondary to urinary tract infection, present on admission, active. -neurologic hepatic and cardiac end-organ dysfunction. -SOFA score is 4. White blood cell count today is 9.4 with 81.6% neutrophils improved from a white count of 15.4 and 87.6% neutrophils yesterday. Procalcitonin is 0.07. -patient diagnosed in the ER yesterday with UTI and discussed with PCP and patient family who agree to outpatient treatment return the patient to [facility]. Patient returned with deteriorating mental status and poor p.o. intake which may be chronic progression of dementia, metabolic encephalopathy due to UTI/sepsis, and likely CVA. -the patient has a POLST form designating DNR status confirmed by family requesting no aggressive treatment. They did request trial of fluids and an tibiotics. We will not follow-up aggressive treatment related to patient's DNR status and stated wishes at family request. -patient received 1 L normal saline in the emergency department and Rocephin 1 g IV in the emergency department. Will continue Rocephin 1 g IV daily, today is day 4 of antibiotic therapy for UTI. Ideally would finish 7 day course, hopefully with oral antibiotics. But family would be okay with 5 day course of antibiotics to end tomorrow if he can go to [facility]. 2. Acute metabolic encephalopathy secondary to urinary tract infection in the setting of stroke and dementia, present on admission, active -per family bedside the patient has decreased mental status and typically is able to eat and drink (although has been declining recently) and and has very little oral intake today. -will treat underlying etiology of urinary tract infection with Rocephin as described above. -highly likely he has an acute CVA as well. He has history of CVA and presented with new mild left facial droop in the setting of new onset atrial fibrillation discussed below. He further now has evident left hemiparesis as he is more alert. CT scan x2 were negative. 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 -will continue home regimen of Zoloft 50 mg daily. -bedside swallow screen failed -requested speech therapy consult for swallow evaluation whom will evaluate today. -constant carbohydrate dysphagia diet for comfort. 3. Acute dehydration, present on admission, active. -patient received 1 L of IV fluid in the emergency department yesterday and another L IV fluid on the floor. -patient has a sodium 136 today a BUN of 21 and a creatinine of 0.69 with a BUN creatinine ratio of 30.4. -patient has a history of coronary artery disease and has an elevated proBNP at 907 and troponin is 0.036. Continue to Rehydrate cautiously with normal saline at 75 cc/hour today. 4. New onset atrial fibrillation, controlled rate, present on admission, active. -history of coronary artery disease and CABG x5, no prior diagnosis of atrial fibrillation. -12 lead EKG in ED showed atrial fibrillation with ventricular rate of 71, interventricular conduction line, QRS is 111 milliseconds, QTC is 467 milliseconds. Prior EKGs identify normal sinus rhythm or sinus bradycardia with first-degree AV block. -potassium is 4.0 and magnesium is 1.6, ordered magnesium 2 g IV x1 now. -as the patient will not be treated aggressively will not order an echocardiogram, or full anticoagulation. -ordered Plavix 75 mg daily if he is able to take oral medications. -patient will be monitored on tele. 5. Elevated troponin, present on admission, active. -patient presents with a mildly elevated troponin of 0.036, total CK is 61. Patient also manifest atrial fibrillation albeit a controlled rate. Elevation not believed to be related to renal function with a creatinine 0.69. -proBNP is elevated at 907, without evidence of pulmonary or peripheral edema. -12 lead EKG atrial fibrillation with ventricular rate of 71, interventricular conduction line, QRS is 111 milliseconds, QTC is 467 millisecongs, no evidence of acute ischemia or infarct. -the patient is a DNR wishing comfort measures only with antibiotics and fluids. Will not pursue aggressively but will recheck troponin in the morning. 6. Acute CVA, present on admission - now that patient is more alert, more obvious facial asymmetry and left sided facial droop. - head CT negative for hemorrhage on admission. - MRI will not place change roof bolter as goals are focused on comfort. - speech therapy evaluation planned for today. - plavix initiated as noted above, if he can tolerate oral medications. 6. Diabetes type 2, controlled, chronic, stable. -blood glucose on admission labs is 135. -patient takes metformin 500 mg twice daily, continue to hold indefinitely for comfort. Will discontinue fingersticks and sliding scale insulin today. 7. History of CVA with frontal temporal lobe dementia, chronic, stable. -will continue patient's home regimen of Zoloft 50 mg daily. Patient was previously on quit pitting and trazodone both of which have not been discon tinued by his PCP. 8. Restless leg syndrome, chronic, stable. -continue home regimen of ropinirole. VTE prophylaxis: Bilateral SCDs, enoxaparin IV fluid: Normal saline at 75 cc/hour. Diet: pending formal speech eval, on dysphagia diet now for comfort. Code status: DNR per ROLAND dated 11/27/2017 confirmed by family. The patient's is his surrogate decision maker. Dispo: remains inpatient. continue antibiotics and fluid support at this time. Anticipate discharge to [facility] tomorrow with hospice. Quality VTE Deep Vein Thrombosis/Pulmonary Embolism Present on Admission: No
[2020-01-23] MEDS: CLOPIDOGREL 75 MG TABLET PO (11:14)
[2020-01-23] MEDS: DOCUSATE 100 MG CAPSULE PO (11:14)
[2020-01-23] MEDS: SERTRALINE 50 MG TABLET PO (11:14)
--- NOTE | 2020-01-23 12:07 | DIET.PN ---
Dietary Progress Note Assessment: 84y M admitted for UTI and metabolic encephalopathy referred to nutrition for malnutrition screening. Pt lives at [facility] since having stroke 2y ago. Pt's reports he historically has been ~200# but dropped to 160# over past few years. While this is his current weight, she remarks how gaunt he now looks. Pt ate pudding and a few bites of chicken soup for lunch today being fed by his . Discussed pt's food preferences so we can provide texturally appropriate appealing foods since he has aphasia and cannot make requests himself, relayed food preferences to kitchen including: salmon, mashed potato (no lactose), pureed fruit, omlet c pureed chicken sausage, black coffee. Pt's requests she bring in small [employer] ice cream cone for him, ok for him to have this, pt will be d/c on hospice and POs do not meet his current Consistent Carb diet order maximum, comfort feeding. HT: 175.2cm WT: 72.5kg UBW: 72.5kg for past 2y BMI: 23.6
--- NOTE | 2020-01-23 13:36 | CM.DPNOTE ---
DCP Cont Patient's family continue to feel Hospice care is appropriate for patient's DC. Spouse has decided that patient will DC back to [facility]. DC goal is tomorrow, Monday 8.7.20. This SPONGE HOOKER contacted Sun/SHARMILA and asked progress for Hospice Info visit? Referral faxed yesterday. Sun explained that they have gotten many referrals and Giovanna/[facility] contacting spouse today. Availability for start of care unknown at this time. Sun will f/u w/this SPONGE HOOKER after info visit/consent has been completed. Then placed call to Ria at [facility]; indicated that referral to [facility] had been sent yesterday, updated that family would like patient to return. Ria states an RN will need to complete a bedside assessment tomorrow to assess if patient can come home tomorrow w/o Hospice in place (?) or id Hospice needs to be arranged first before [facility] staff can safely manage his care. Awaiting CB from [facility] and [facility] to further coordinate patient's DC; will need BLS for transport RADHA Ni
--- NOTE | 2020-01-23 14:43 | ST.IPCSEOM ---
Visit Care Team Role Provider Type Naina Campa MD Primary Care Provider Physician Referring Provider Specialty: Medical Address: [address], [address] Email: Navi Clay DO Emergency Provider Physician Specialty: Emergency Medicine Address: [address] [place] [address], [id number] Email: [email or web address] NELSON Atwood Admit Provider Physician Attending Provider Specialty: Internal Medicine Address: [address] [place] [address], [address] Email: [email or web address] Current Diagnoses Sepsis, unspecified organism (01/21/20) Past Medical History (Last Reviewed 01/21/20 @ 23:59 by NELSON Atwood) Abnormality of gait and mobility (Acute Medical) Atherosclerosis (Acute Medical) BPH (benign prostatic hyperplasia) (Chronic Medical) CAD (coronary artery disease) (Chronic Medical) Cataract (Acute Medical) Right eye Colonic polyp (Acute Medical) Dementia (Acute Medical) Frontal Temporal Dementia Depression (Chronic Medical) Diabetes type 2, controlled (Chronic Medical) Hearing difficulty of both ears (Acute Medical) HTN (hypertension) (Chronic Medical) Hyperlipidemia (Chronic Medical) Nasal polyp (Acute Medical) Restless leg syndrome (Acute Medical) Rotator cuff dysfunction (Acute Medical) TIA (transient ischemic attack) (Acute Medical) Urinary incontinence (Acute Medical) Speech-Language Pathology Swallow Evaluation ORDER ENTRY TECHNICIAN Clinical Swallow Evaluation Start: 01/22/20 09:27 Freq: Status: Active Protocol: Document 01/23/20 13:47 LL (Rec: 01/23/20 13:56 LL [id number]) Clinical Swallow Evaluation Session Time Visit Start Time 10:35 Visit Stop Time 11:25 Total Visit Minutes 50 Referral Referring Physician NELSON Atwood Reason for Referral Swallowing difficulties, CVA, Dementia, and AMS Setting Assessment Location Acute Care Visit Type Note Type Initial Evaluation Patient Information Identification Type Name,ID Wristband History Per H & P: Mr. Sherman Rowley is an 84-year-old male with history significant for coronary artery disease, atrial fibrillation, CVA, type 2 diabetes, frontal temporal dementia, hypertension, hyperlipidemia, BPH and significant difficulty hearing who returns to the ER for worsening altered mental status. The patient was seen in the emergency room yesterday for altered mental status that per family has been deteriorating for 3-4 days. Per family and facility staff the patient appears to have developed a new left facial droop. The patient was evaluated with CT exam it is found no acute intracranial processes. He had elevated white count and was found to have urinary tract infection, initial Gram stain finds gram- negative bacilli. The patient was started on Rocephin and hydrated in the ER. The patient wishes to be DNR with comfort measures. The ER provider spoke with Dr. Campa patient's PCP who agreed with plan of care and outpatient antibiotics and to be discharged back to [facility] in keeping with family wishes. At the care facility the patient had deteriorating responsiveness and is redirected back to the ER at the family wishes. The family reports the patient has consumed little food or fluids . The patient at baseline is aphasic with a rather dense dementia but has been able to eat and drink. The patient has had no fevers and no chills have been noted. The patient has not been dyspneic and has had no cough or wheezing. He has had no nausea vomiting or indications of abdominal pain. Urine sample obtained yesterday confirms urinary tract infection. No reports of diarrhea. *Patient meeting completed with ORDER ENTRY TECHNICIAN, RN, case sealer ( ECHO VASCULAR TECHNOLOGIST), and hospitalist prior to swallow evaluation to guide POC. Patient's family feels that Hospice care is appropriate for patient's discharge. Subjective Observations Pt was asleep in bed (lying 40 degrees) upon ST arrival. Pt' s , Nancy and nurse, Katia were present during swallow evaluation. 02 sats at 98% prior to oral intake. ORDER ENTRY TECHNICIAN performed sternum rub to arouse pt. Evaluation Liquids Trialed Thin Solids Trialed Puree Administration Type Tea Spoon,Cup Single Sip, Dependent Feeding Oral Impairment Mildly Impaired Oral Strategies Upright at 90 degrees, Alternate Liquids/Solids, Dementia Strategies Oral Phase Comments Oral Peripheral Exam: Left sided facial weakness / labial drooping (residual from previous CVA), buccal weakness / atrophy (sunken cheeks) likely due to gradual weight loss and aging process. Natural dentition in adequate condition for age. Unable to formally assess lingual and labial ROM, coordination, and strength due to pt's altered mental status (e.g., dementia, CVA, and aphasia - unable to follow commands). Pt able to accept PO trials via spoon and cup given moderate verbal cues. Moderate labial spillage noted when presented with thin liquids via cup. Mild labial spillage noted when presented with thin liquids via spoon. Mild oral residue observed which cleared with water by spoon. Pt's reported left sided pocketing since most recent stroke. Pt did not present with pocketing on puree textures. Pharyngeal Impairment Within Functional Limits Pharyngeal Strategies Sitting Upright (90 deg),Small Bites and Sips,Alternate Liquids/Solids Pharyngeal Phase Comments Unable to assess pt's coughing strength due to his altered mental status (e.g., unable to follow commands). Pt required 1:1 feeding (dependent feeding). Hyolaryngeal elevation present on palpation . Mildly slowed bolus prep and a/p propulsion. Pt presented with no overt s/sx of aspiration with thin liquid and puree texture trials. 02 sats remained at 97-98 throughout all trials. Pt able to take medications crushed in carrier (nursing administered medications) with no difficulty observed. Pharyngeal phase appeared WFL. Findings Dysphagia Type Mild oropharyngeal dysphagia Rehabilitation Potential Fair Impressions Patient presents with mild oral dysphagia characterized by left sided facial / labial weakness resulting in labial spillage. ORDER ENTRY TECHNICIAN did not present patient with advanced diet textures due to decreased alertness, altered mental status, and potential swallow fatigue / aspiration (patient safety). ORDER ENTRY TECHNICIAN reviewed bedside swallow results and recommended puree texture diet and thin liquids with use of sitting upright (90 degrees), small bites/sips, and alternate bites/sips to improve protection of airway and reduce risk of aspiration. ORDER ENTRY TECHNICIAN provided pt's with a document listing pt's diet recommendations and swallow precautions to give to [facility], to ensure diet recommendations and swallow precautions are followed. ORDER ENTRY TECHNICIAN provided caregiver education on general aspiration precautions and dementia feeding strategies. Pt's verbalized understanding and agreement with recommendations and POC. ORDER ENTRY TECHNICIAN also spoke with pt's nurse , case sealer, and hospitalist about recommendations. Diet Recommendations Liquids Order Thin Diet Order Dysphagia Blenderized Medication Recommendations Crushed in Carrier Additional Dietary Needs No Straws,1:1 Assistance Aspiration Precautions Recommended Precautions Upright at 90 Degrees, Alternate Liquids/Solids,Small Bites/Sips,Liquids from Spoon Treatment Plan Placement Recommendations after [facility] Facility Discharge Appropriate for Therapy No: Pt planned to discharge tomorrow on Hospice Therapy Recommendations Skilled speech therapy is not recommended at this time. Pt is planned to discharge tomorrow on Hospice at [facility].
[2020-01-23] MEDS: CEFTRIAXONE 1 GM/50 ML FROZ.PIGGY IV (20:59)
[2020-01-23] MEDS: ENOXAPARIN 40 MG/0.4 ML SYRINGE SUBCUT (20:59)
[2020-01-24] VITALS: BP 130/59; PULSE 67; RESP 18; TEMP 36.9; O2SAT 97
[2020-01-24 04:00] VITALS: O2SAT 94
[2020-01-24 06:04] VITALS: BP 140/66; PULSE 62; RESP 16; TEMP 36.7; O2SAT 94
[2020-01-24 08:05] VITALS: BP 151/78; PULSE 65; RESP 20; TEMP 36.6; O2SAT 94
[2020-01-24] MEDS: CLOPIDOGREL 75 MG TABLET PO (08:19)
[2020-01-24] MEDS: DOCUSATE 100 MG CAPSULE PO (08:19)
[2020-01-24] MEDS: MAGNESIUM OXIDE 400 MG TABLET PO (08:19)
[2020-01-24] MEDS: SERTRALINE 50 MG TABLET PO (08:19)
--- NOTE | 2020-01-24 08:25 | P.DS_ITS ---
History of Present Illness History of Present Illness Date Patient Seen: 01/21/20 Chief complaint: Lethargic Narrative: Written by Trever DAMON: Mr. Sherman Rowley is an 84-year-old male with history significant for coronary artery disease, atrial fibrillation, CVA, type 2 diabetes, frontal temporal dementia, hypertension, hyperlipidemia, BPH and significant difficulty hearing who returns to the ER for worsening altered mental status. The patient was seen in the emergency room yesterday for altered mental status that per family has been deteriorating for 3-4 days. Per family and facility staff the patient appears to have developed a new left facial droop. The patient was evaluated with CT exam it is found no acute intracranial processes. He had elevated white count and was found to have urinary tract infection, initial Gram stain finds gram-negative bacilli. The patient was started on Rocephin and hydrated in the ER. The patient wishes to be DNR with comfort measures. The ER provider spoke with Dr. Campa patient's PCP who agreed with plan of care and outpatient antibiotics and to be discharged back to [facility] in keeping with [facility] wishes. At the care facility the patient had deteriorating responsiveness and is redirected back to the ER at the family wishes. The family reports the patient has consumed little food or fluids. The patient at baseline is aphasic with a rather dense dementia but has been able to eat and drink. The patient has had no fevers and no chills have been noted. The patient has not been dyspneic and has had no cough or wheezing. He has had no nausea vomiting or indications of abdominal pain. Urine sample obtained yesterday confirms urinary tract infection. No reports of diarrhea. Upon arrival to the ER the patient has a temperature of 98.8?, heart rate of 71, blood pressure 123/70, respirations 16 saturating 98% on room air. CT scan is again repeated this evening finds no acute intracranial pathology, cerebral volume loss for age with chronic microvascular ischemic changes. Chest x-ray obtained finds no acute 5 cardiopulmonary pathology opacities or infiltrates. A 12 lead EKG is obtained finding atrial fibrillation with a ventricular rate of 71, incomplete intraventricular conduction delay with QRS interval of 111 milliseconds, QTC is 467 milliseconds. On laboratory analysis he has white count 9.4, hemoglobin 12.0, hematocrit 35.4 platelets 215. His electrolytes within normal limits with a potassium of 4.0 and magnesium 1.6. His BUN is 21 with a creatinine is 0.69. His nonfasting glucose is 135. On liver function tests he has elevated bilirubin 1.4, AST of 21, ALT of 18 and alkaline phosphatase of 55. He has a total CK of 61 and mildly elevated troponin 0.036. His proBNP is 907. Procalcitonin is found to be 0.07. In the ER patient received another dose of ceftriaxone 1 g IV as well as 1 L normal saline. Blood cultures obtained and covered screening initiated. Family is in agreement with admission for IV antibiotics and hydration. The patient is admitted to the medicine service for urinary tract infection unresponsive to outpatient treatment. Discharge Providers Provider Date of admission: 01/21/20 22:12 Discharge Date: 01/24/20 Primary care physician: Naina Campa MD Consults: 01/21/20 22:55 Consult to Physical Therapy Evaluate & Treat Comment: Altered mental status, history CVA Physician Instructions: Evaluate and Treat 01/22/20 00:50 Consult to Speech Therapy Evaluate & Treat Comment: Swallow eval, AMS, CVA, dementia Physician Instructions: Evaluate and treat 01/22/20 21:46 Consult to Dietitian, Adult Routine Comment: Reason For Exam: cachectic, NPO, hospice possibly pending. Discharge provider: Laura Day DO Summary Hospital Course Discharge Diagnosis: 1. Palliative care. 2. Sepsis, present on admission. Resolved. 3. Acute Enterobacter cloacae E. coli urinary tract infection, present on admission. Resolving. 4. Probable acute right-sided CVA, present on admission. Active. 5. Acute metabolic encephalopathy, secondary to urinary tract infection and probable new right-sided CVA, in setting of previous CVA with frontal lobe dementia, present on admission. Active. 6. Acute dehydration, present on admission. Resolved. 7. New onset atrial fibrillation, unclear acuity, present on admission. Active. 8. Elevated troponin of unclear significance, present on admission. Active. 9. Diabetes mellitus type 2, non-insulin using, present on admission. Stable. 10. History of CVA with frontal temporal lobe dementia, chronic, present on admission. Stable. 11. Restless leg syndrome, chronic, present on admission. Stable. 12. BPH, chronic, present on admission. Stable. Hospital Course: Sherman Rolwey is an 84-year-old male with a past medical history significant for coronary artery disease status post CABG x5, prior CVA with frontal lobe d ementia, hypertension, hyperlipidemia, diabetes mellitus type 2, non-insulin using, BPH and significant difficulty hearing who return to the ED for worsening mental status. 1. Palliative care. -Patient has a POLST form designating DNR status confirmed by family requesting no aggressive treatment. The patient's family requested IV fluids and antibiotics but no other aggressive treatment related to patient's DNR status and previously stated wishes. -Speech therapy cleared patient for dysphagia mechanical diet and continued dysphagia mechanical diet with medications crushed in applesauce for comfort. -Depending upon family's wishes may discontinue all unnecessary medications as patient is transitioning to hospice. 2. Sepsis, present on admission. Resolved. -Neurologic, hepatic and cardiac end-organ dysfunction. -SOFA score was 4. White blood cell count today is 9.4 with 81.6% neutrophils improved from a white count of 15.4 and 87.6% neutrophils yesterday. Procalcitonin is 0.07. -Early goal-directed therapy met including: Broad-spectrum IV antibiotics and IV fluid resuscitation. 3. Acute Enterobacter cloacae E. coli urinary tract infection, present on admission. Resolving. -Patient was diagnosed in the ED with UTI day prior to admission and discharged back to [facility] on outpatient treatment. Patient returned with deteriorating mental status with metabolic encephalopathy and poor PO intake (possibly due to progression of dementia versus infection), and likely CVA. -Patient has a POLST form designating DNR status confirmed by family requesting no aggressive treatment. The patient's family requested IV fluids and antibiotics but no other aggressive treatment related to patient's DNR status and previously stated wishes. -Urine culture grew Enterobacter cloacae and E coli both sensitive to ceftriaxone. -Received 1 L NS and ceftriaxone 1 g IV x1 in ED. Continued ceftriaxone 1 g IV daily x 3 days and discharged on cefdinir 300 mg twice daily for 4 additional days to complete 7 days total of antibiotic therapy. 4. Probable acute right-sided CVA, present on admission. Active. -Patient presented with mild left facial droop and left-sided hemiparesis in the setting of new onset atrial fibrillation discussed below. -CT brain without contrast x2 did not demonstrate any acute intracranial abnormalities. CT scan x2 were negative. -Patient's family chose to defer MR stroke protocol as this will not change overall management. -Started and continued clopidogrel 75 mg daily for stroke prophylaxis. Patient is intolerant of statin. -Speech therapy cleared patient for dysphagia mechanical diet and continued dysphagia mechanical diet with medications crushed in applesauce for comfort. 5. Acute metabolic encephalopathy, secondary to urinary tract infection and probable new right-sided CVA, in setting of previous CVA with frontal lobe dementia, present on admission. Active. -Per family at bedside the patient has decreased mental status and typically is able to eat and drink (although has been declining recently) and and has very little oral intake today. -Continued treatment for UTI as above with slight improvement in alertness and probable new right-sided CVA treated as above. 6. Acute dehydration, present on admission. Resolved. -Received 2 L of NS and continued gentle IV fluid hydration per family's request with normal saline at 75 mL/hr. -Patient discharged on hospice and IV fluids discontinued at time of discharge. 7. New onset atrial fibrillation, unclear acuity, present on admission. Active. -Patient with history of coronary artery disease and CABG x5. No prior diagnosis of atrial fibrillation. -EKG demonstrated atrial fibrillation with ventricular rate of 71, interventricular conduction delay, QRS is 111 ms, QTC is 467 ms. Prior EKGs identify normal sinus rhythm or sinus bradycardia with first-degree AV block. -Continued to monitor electrolytes and replete as necessary. Goal K > 4.0 and Mg > 2.0. -Per patient's previous wishes he was not aggressively treated and echocardiogram and anticoagulation were not pursued. Continued Plavix as above. 8. Elevated troponin of unclear significance, present on admission. Active. -Troponin mildly elevated at 0.036 and likely secondary to demand ischemia from sepsis and UTI, as well as, possibly new onset atrial fibrillation albeit a controlled ventricular rate. -ProBNP is elevated at 907 without evidence of pulmonary or peripheral edema on exam. -EKG demonstrated atrial fibrillation without acute ischemic changes such as ST elevation or depression. -Patient is a DNR with comfort measures only and continued IV antibiotics and fluids as above but did not continue to trend troponin as would not change release manager. 9. Diabetes mellitus type 2, non-insulin using, present on admission. Stable. -Hemoglobin A1c 6.9% in 11/2019 indicative of excellent glycemic control. -Discontinued [facility] blood glucose checks and low-dose correctional scale insulin for comfort. -Held metformin. Depending upon family's wishes may discontinue all unnecessary medications as patient is transitioning to hospice. 10. History of CVA with frontal temporal lobe dementia, chronic, present on admission. Stable. -Continued home quetiapine 25 mg daily as needed for agitation, sertraline 50 mg daily, and trazodone 50 mg daily at bedtime as needed for insomnia. 11. Restless leg syndrome, chronic, present on admission. Stable. -Continued home ropinirole 1 mg daily at bedtime. 12. BPH, chronic, present on admission. Stable. -Continued home terazosin 10 mg daily at bedtime. Exam Vital Signs (past 8 hours): - 01/24/20 04:00 01/24/20 06:04 Temperature 98.1 F Pulse Rate 62 Respiratory Rate 16 Blood Pressure 140/66 Pulse Oximetry 94 94 Oxygen Delivery Method Room Air Oxygen Flow Rate 0 Narrative Exam Narrative: General: Elderly male lying in bed and in no acute distress, unresponsive, aphasic, left-sided hemiparesis. HEENT: Normocephalic, atraumatic. External ears without defect. Pupils equal, round, and reactive to light. Anicteric sclerae, moist conjunctivae, and no lid lag. Left-sided facial droop. Neck: Supple. No jugular venous distension. No lymphadenopathy or thyromegaly. Cardiovascular: Irregularly irregular without murmurs, rubs, or gallops appreciated Pulmonary: Clear to auscultation bilaterally without crackles, wheezes, or rhonchi. Normal respiratory effort with no use of accessory muscles. Abdomen: Soft, bowel sounds present, appears nontender, nondistended. Extremities: No clubbing, cyanosis, or edema. Skin: Normal temperature, turgor, and texture; no rash, ulcers, or subcutaneous nodules appreciated. Neurological: Aphasic. Left-sided hemiparesis. Left-sided facial droop. Objective Labs Result Diagrams: 01/22/20 05:35 01/22/20 05:35 Discharge Plan Discharge Plan [facility] care of provider: Hospice Discharge orders & Medications Discharge Orders: Discharge (Order); Ordered 01/24/20 Ordered By: Laura Day Prescriptions: New acetaminophen 325 mg Tablet 650 mg PO Q6HR PRN (Reason: Fever/Mild Pain (1-3)) Qty: 30 RF: 0 clopidogrel 75 mg Tablet 75 mg PO DAILY Qty: 30 RF: 0 cefdinir 250 mg/5 mL suspension for reconstitution 300 mg PO BID Qty: 48 RF: 0 Continued terazosin 10 MG capsule 10 mg PO QPM Qty: 0 RF: 0 multivitamin Tablet 1 tab PO DAILY RF: 0 metformin 500 mg Tablet 500 mg PO BID RF: 0 sertraline 50 mg Tablet 50 mg PO DAILY RF: 0 cholecalciferol (vitamin D3) [Vitamin D3] 5,000 unit Tablet 5,000 unit PO DAILY RF: 0 docusate sodium 100 mg Capsule 100 mg PO BID Qty: 60 RF: 0 quetiapine 25 mg tablet 25 mg PO DAILY PRN (Reason: agitation) RF: 0 ropinirole 1 mg tablet 1 mg PO BEDTIME RF: 0 ascorbic acid (vitamin C) 500 mg Tablet 500 mg PO DAILY RF: 0 Viactiv 1 tab PO DAILY RF: 0 trazodone 50 mg tablet 50 mg PO BEDTIME PRN (Reason: Sleep) RF: 0 magnesium hydroxide [Milk of Magnesia] 400 mg/5 mL Suspension 30 ml PO DAILY PRN (Reason: Constipation) RF: 0 bisacodyl 10 mg Suppository 10 mg NE DAILY PRN (Reason: Constipation) RF: 0 Lactobacillus acidophilus Capsule 50 mmu cells PO DAILY PRN (Reason: COMPLEX) RF: 0 Discontinued cephalexin [Keflex] 500 mg capsule 500 mg PO QID 7 Days Qty: 28 RF: 0 methenamine hippurate 1 gram tablet 1 g PO DAILY RF: 0 Follow up/Referrals: Naina Campa MD [Primary Care Provider] - Diet/Activity/Treatments Diet: Diet as Tolerated Liquid consistency: Normal/Thin Diet comment: Dysphagia mechanical diet, meds crushed, 1:1 feeding Activity: Bedrest Visit Report/Discharge Packet Visit Report Forms: Congestive Heart Failure, Patient Portal/API, Stroke Signs & Symptoms Discharge Data Primary Care Provider: Naina Campa Discharges patient from system. Discharge Date/Time: 01/24/20 14:30 Quality VTE Deep Vein Thrombosis/Pulmonary Embolism Present on Admission: No
--- NOTE | 2020-01-24 08:57 | PC.NURSE ---
Addendum entered by Jackie Monterroso R.N. 01/24/20 13:45: Patient repositioned and change prior to BLS transport. Charity (facility caregiver) was in to see patient earlier this morning, report given. Patient's son also visited. IV removed, patient tolerated well. Brief changed. Oral care given. Belongings, including waffle cushion, packed for transport. Safe swallow instructions included in discharge packet for facilities reference. Original Note: Patient resting with eyes closed this morning. Awake for medications and breakfast 1:1. Taking meds crushed, noted concern for biting down or pocketing with capsules. Intermittent, non productive, moist coughing. Left upright for 30 mins post meal. Repositioned, brief changed, barrier cream applied, and waffle cushion positioned under coccyx. IV infusing NS at 75cc/hour- IV site is CDI. Lungs diminished bilaterally. NC irregular. Left side weakness noted. Calf SCD's on bilaterally.
[2020-01-24 11:43] VITALS: BP 133/70; PULSE 65; RESP 16; TEMP 36.4; O2SAT 95
--- NOTE | 2020-01-24 14:51 | PC.NURSE ---
Transfer: [facility] crew here, report given. Pt transfered to [facility] via [facility].
--- NOTE | 2020-01-24 15:13 | CM.DPNOTE ---
DC Note DC order in place today, coordinated the following: Patient's family remain agreeable to return to [facility]; [facility] in close communication [facility]family. Updated Ria at [facility]; she sent RN Charity over for brief bedside assessment and patient was accepted back home today, [facility] admission and DME delivery still pending, Ria aware. Dr Day signed DC med list, spouse Nancy made aware of DC and continued to support the plan. Family was rotating visits this morning to see patient before he returned home to [facility] (minimal-no visitors allowed). BLS was arranged for p/u at approx 1400, medical necessity form completed and signed by Dr Day . Updated [facility] that patient had left this afternoon, DC summary still in draft this afternoon. [place]
== END 2020-01-24 14:30 | DRG 871 ==
LOC: ED 21:54 → AC 01-22 08:11
PROVIDERS: Admitting Provider Nurse Practitioner Adult Health; Emergency Provider Emergency Medicine; PCP Internal Medicine; Referring Provider Internal Medicine; Visit Provider Nurse Practitioner Adult Health
DX: A41.9 Sepsis, unspecified organism (principal); G93.41 Metabolic encephalopathy; R40.2122 Coma scale, eyes open, to pain, at arrival to emergency department; R40.2222 Coma scale, best verbal response, incomprehensible words, at arrival to emergency department; I63.9 Cerebral infarction, unspecified; N39.0 Urinary tract infection, site not specified; G81.91 Hemiplegia, unspecified affecting right dominant side; R65.20 Severe sepsis without septic shock; R40.2352 Coma scale, best motor response, localizes pain, at arrival to emergency department; E86.0 Dehydration; I48.91 Unspecified atrial fibrillation; G31.09 Other frontotemporal neurocognitive disorder; F02.80 Dementia in other diseases classified elsewhere, unspecified severity, without behavioral disturbance, psychotic disturbance, mood disturbance, and anxiety; R29.810 Facial weakness; I25.10 Atherosclerotic heart disease of native coronary artery without angina pectoris; E11.9 Type 2 diabetes mellitus without complications; I10 Essential (primary) hypertension; E78.5 Hyperlipidemia, unspecified; N40.0 Benign prostatic hyperplasia without lower urinary tract symptoms; G25.81 Restless legs syndrome; B96.89 Other specified bacterial agents as the cause of diseases classified elsewhere; Z66 Do not resuscitate; Z87.891 Personal history of nicotine dependence; Z79.84 Long term (current) use of oral hypoglycemic drugs; Z11.59 Encounter for screening for other viral diseases; Z51.5 Encounter for palliative care; Z86.73 Personal history of transient ischemic attack (TIA), and cerebral infarction without residual deficits
CPT/HCPCS: 36415; 70450; 71045; 80048; 80053; 80305; 81001; 82550; 82962; 83605; 83735; 83880; 84145; 84484; 85025; 87040; 87077; 87086; 87186; 87635; 92610; 93005; 96361; 96365; 99284; 99285; J1650